=== PATIENT | male | born 1950 | race Caucasian/White ===

== ENCOUNTER 2018-03-05 08:51 | Emergency (ER) | payer MEDICARE, OTHER ==
[2018-03-05 09:13] LABS: #Basophils 0.1 thou/uL (0.0-0.2); #Eosinphils 0.2 thou/uL (0.0-0.7); #Lymphocytes 1.8 thou/uL (1.20-3.40); #Monocytes 0.5 thou/uL (0.11-0.59); #Neutrophils 4.9 thou/uL (1.40-6.50); %Basophils 1.5 % (0.0-1.0); %Eosinophils 2.3 % (0.0-10.0); %Lymphocytes 24.6 % (21.0-51.0); %Monocytes 6.1 % (0.0-10.0); %Neutrophils 65.6 % (42.0-75.0); Hemoglobin 14.7 g/dL (14.0-18.0); Mean Corpuscular HGB CONC 35.3 g/dL (32.0-36.0); Mean Corpuscular Hemoglobin 29.1 pg (27.0-31.0); Mean Corpuscular Volume 82.4 fL (78.0-98.0); Mean Platelet Volume 9.3 fL (7.4-10.4); Platelet Count 194 thou/uL (130-400); RBC Distribution Width 12.3 % (11.5-14.5); Red Blood Cell (RBC) Count 5.05 mill/uL (4.70-6.10); White Blood Cell (WBC) Count 7.5 thou/uL (4.8-10.8)
[2018-03-05] MEDS ORDERED: Pantoprazole 40 MG VIAL ONE (09:22)
--- NOTE | 2018-03-05 09:27 | RAD ---
UPRIGHT PORTABLE CHEST 1 VIEW: Date; 03/05/18 HISTORY: 67-year-old male with history of chest pain. FINDINGS: Monitor leads overlie the chest. Heart size is normal. The lungs are clear. No confluent pneumonia, o vert edema, or pleural effusion. IMPRESSION: No acute intrathoracic disease. Atherosclerosis of aorta. POS: [facility]
[2018-03-05 09:32] LABS: ALT (SGPT) 11 U/L (8-55); AST (SGOT) 13 U/L (5-34); Alkaline Phosphatase 75 U/L (40-150); Anion Gap 14 mmol/L (10-20); BUN (Urea Nitrogen) 14 mg/dL (8.4-25.7); Bilirubin, Total 0.6 mg/dL (0.2-1.2); Calc. Creatinine Clearance 0 mL/min (70-130); Calcium 9.6 mg/dL (7.8-10.44); Carbon Dioxide 28 mmol/L (23-31); Chloride 96 mmol/L (98-107); Estimated GFR-MDRD 57; Globulin 3.4 g/dL (2.4-3.5); Glucose 98 mg/dL (80-115); Potassium 3.8 mmol/L (3.5-5.1); Protein, Total 7.4 g/dL (5.8-8.1); Sodium 134 mmol/L (136-145)
== END 2018-03-05 11:24 | disposition short-term general hospital (02) ==
LOC: BURERS 08:51
DX: R07.2 Precordial pain (principal); I10 Essential (primary) hypertension; E78.5 Hyperlipidemia, unspecified; F17.210 Nicotine dependence, cigarettes, uncomplicated; Z79.899 Other long term (current) drug therapy; Z79.82 Long term (current) use of aspirin
CPT/HCPCS: 36415; 71045; 80053; 83880; 84484; 85025; 85379; 93005; 96374; C9113

== ENCOUNTER 2018-07-12 09:26 | Emergency (ER) | payer BC, MEDICARE ==
[2018-07-12 10:15] LABS: Eosinophils 4 % (0-10); Hemoglobin 13.9 g/dL (14.0-18.0); Lymphocytes 23 % (21-51); MDiff Complete? YES; Mean Corpuscular Hemoglobin 29.7 pg (27.0-31.0); Mean Corpuscular Volume 90.1 fL (78.0-98.0); Mean Platelet Volume 8.8 fL (7.4-10.4); Monocytes 4 % (0-10); Neutrophil 69 % (42-75); Platelet Count 144 thou/uL (130-400); RBC Distribution Width 13.3 % (11.5-14.5); Red Blood Cell (RBC) Count 4.66 mill/uL (4.70-6.10); White Blood Cell (WBC) Count 5.4 thou/uL (4.8-10.8)
[2018-07-12 10:33] LABS: ALT (SGPT) 15 U/L (8-55); AST (SGOT) 20 U/L (5-34); Albumin 3.9 g/dL (3.4-4.8); Alkaline Phosphatase 69 U/L (40-150); Anion Gap 14 mmol/L (10-20); BUN (Urea Nitrogen) 16 mg/dL (8.4-25.7); Bilirubin, Total 0.5 mg/dL (0.2-1.2); Calc. Creatinine Clearance 0 mL/min (70-130); Calcium 9.1 mg/dL (7.8-10.44); Carbon Dioxide 25 mmol/L (23-31); Chloride 102 mmol/L (98-107); Estimated GFR-MDRD 61; Glucose 94 mg/dL (80-115); Potassium 3.5 mmol/L (3.5-5.1); Protein, Total 6.9 g/dL (5.8-8.1); Sodium 137 mmol/L (136-145)
== END 2018-07-12 10:59 | disposition home or self-care (01) ==
LOC: BURERS 09:26
DX: K62.5 Hemorrhage of anus and rectum (principal); F17.210 Nicotine dependence, cigarettes, uncomplicated; E78.5 Hyperlipidemia, unspecified; I10 Essential (primary) hypertension; Z79.82 Long term (current) use of aspirin; Z79.899 Other long term (current) drug therapy
CPT/HCPCS: 80053; 82274; 85025; 99283

== ENCOUNTER 2019-03-10 17:42 | Emergency (ER) | payer BC, MEDICARE ==
[~2019-03-10 17:42] MED LIST: Iopamidol 370 76% 100 ML VIAL ONE
[2019-03-10 19:10] LABS: #Basophils 0.1 thou/uL (0.0-0.2); #Eosinphils 0.2 thou/uL (0.0-0.7); #Lymphocytes 1.3 thou/uL (1.20-3.40); #Monocytes 0.3 thou/uL (0.11-0.59); #Neutrophils 4.8 thou/uL (1.40-6.50); %Basophils 0.8 % (0.0-1.0); %Eosinophils 3.2 % (0.0-10.0); %Lymphocytes 19.2 % (21.0-51.0); %Neutrophils 71.8 % (42.0-75.0); Hemoglobin 11.8 g/dL (14.0-18.0); Mean Corpuscular HGB CONC 31.7 g/dL (32.0-36.0); Mean Corpuscular Hemoglobin 29.2 pg (27.0-31.0); Mean Corpuscular Volume 92.2 fL (78.0-98.0); Mean Platelet Volume 10.1 fL (7.4-10.4); Platelet Count 162 thou/uL (130-400); RBC Distribution Width 12.4 % (11.5-14.5); Red Blood Cell (RBC) Count 4.05 mill/uL (4.70-6.10); White Blood Cell (WBC) Count 6.7 thou/uL (4.8-10.8)
[2019-03-10 19:14] LABS: INR-International Normal Ratio 1.3; PTT 44.6 SEC (22.9-36.1); Prothrombin Time 16.4 SEC (12.0-14.7)
[2019-03-10 19:23] LABS: ALT (SGPT) 10 U/L (8-55); AST (SGOT) 14 U/L (5-34); Alkaline Phosphatase 64 U/L (40-110); Anion Gap 16 mmol/L (10-20); BUN (Urea Nitrogen) 20 mg/dL (8.4-25.7); Bilirubin, Total 0.3 mg/dL (0.2-1.2); Calc. Creatinine Clearance 0 mL/min (70-130); Carbon Dioxide 26 mmol/L (23-31); Chloride 100 mmol/L (98-107); Estimated GFR-MDRD 40; Globulin 3.1 g/dL (2.4-3.5); Glucose 102 mg/dL (80-115); Potassium 3.6 mmol/L (3.5-5.1); Protein, Total 7.1 g/dL (5.8-8.1); Sodium 138 mmol/L (136-145)
--- NOTE | 2019-03-10 19:59 | CT ---
EXAM: CT abdomen and pelvis with IV contrast PROVIDED CLINICAL HISTORY: None COMPARISON: None FINDINGS: The visualized lung bases are free of significant opacity. The solid abdominal organs demonstrate an unremarkable CT appearance. There is no bowel dilatation, inflammatory fat stranding, free fluid or free air apparent. There is n o evidence for appendicitis. Mural thickening versus nondistention involving the sigmoid and distal descending colon. No regional lymph node enlargement apparent. Vascular calcification including coronary calcium is dem onstrated.. The osseous structures demonstrate no concerning lytic or blastic lesions. IMPRESSION: Mural thickening versus nondistention involving distal descending and sigmoid colon. Correlate with c oncerns for colitis.
== END 2019-03-10 20:50 | disposition home or self-care (01) ==
LOC: BURERS 17:42
DX: K52.9 Noninfective gastroenteritis and colitis, unspecified (principal); E78.5 Hyperlipidemia, unspecified; I10 Essential (primary) hypertension; F17.210 Nicotine dependence, cigarettes, uncomplicated; Z79.82 Long term (current) use of aspirin; Z79.899 Other long term (current) drug therapy
CPT/HCPCS: 74177; 80053; 82274; 85025; 85610; 85730; 94760; 96360; Q9967

== ENCOUNTER 2019-06-27 11:52 | Emergency (ER) | payer BC, MEDICARE | END 2019-06-27 12:20 | disposition home or self-care (01) | LOC: BURERS 11:52 | DX: L03.031 Cellulitis of right toe (principal); S90.424A Blister (nonthermal), right lesser toe(s), initial encounter; I73.9 Peripheral vascular disease, unspecified; I10 Essential (primary) hypertension; E78.5 Hyperlipidemia, unspecified; F17.210 Nicotine dependence, cigarettes, uncomplicated; Z79.899 Other long term (current) drug therapy; X58.XXXA Exposure to other specified factors, initial encounter | CPT/HCPCS: 99283 ==

== ENCOUNTER 2019-07-16 15:44 | Emergency (ER) | payer BC, MEDICARE ==
[2019-07-16] MEDS ORDERED: HYDROmorphone 0.5 MG/0.5 ML SYRINGE ONE (16:16)
[2019-07-16] MEDS ORDERED: Aspirin Chewable 81 MG TAB ONE ×2 (16:42→16:46)
[2019-07-16 17:31] LABS: #Basophils 0.1 thou/uL (0.0-0.2); #Eosinphils 0.4 thou/uL (0.0-0.7); #Lymphocytes 1.5 thou/uL (1.20-3.40); #Monocytes 0.7 thou/uL (0.11-0.59); #Neutrophils 5.5 thou/uL (1.40-6.50); %Basophils 0.8 % (0.0-1.0); %Eosinophils 4.6 % (0.0-10.0); %Neutrophils 67.5 % (42.0-75.0); Hemoglobin 12.6 g/dL (14.0-18.0); Mean Corpuscular HGB CONC 32.2 g/dL (32.0-36.0); Mean Corpuscular Hemoglobin 29.8 pg (27.0-31.0); Mean Corpuscular Volume 92.4 fL (78.0-98.0); Platelet Count 122 thou/uL (130-400); Red Blood Cell (RBC) Count 4.23 mill/uL (4.70-6.10); White Blood Cell (WBC) Count 8.1 thou/uL (4.8-10.8)
[2019-07-16 17:33] LABS: INR-International Normal Ratio 1.3; Prothrombin Time 16.6 sec (12.0-14.7)
[2019-07-16 17:40] LABS: ALT (SGPT) 7 U/L (8-55); AST (SGOT) 14 U/L (5-34); Albumin 3.8 g/dL (3.4-4.8); Alkaline Phosphatase 85 U/L (40-110); Anion Gap 15 mmol/L (10-20); BUN (Urea Nitrogen) 23 mg/dL (8.4-25.7); Bilirubin, Total 0.3 mg/dL (0.2-1.2); Calc. Creatinine Clearance 0 mL/min (70-130); Calcium 9.6 mg/dL (7.8-10.44); Carbon Dioxide 28 mmol/L (23-31); Chloride 98 mmol/L (98-107); Estimated GFR-MDRD 44; Globulin 3.3 g/dL (2.4-3.5); Glucose 110 mg/dL (80-115); Potassium 3.4 mmol/L (3.5-5.1); Protein, Total 7.1 g/dL (5.8-8.1); Sodium 138 mmol/L (136-145)
== END 2019-07-16 19:12 | disposition short-term general hospital (02) ==
LOC: BURERS 15:44
DX: I73.9 Peripheral vascular disease, unspecified (principal); I10 Essential (primary) hypertension; E78.5 Hyperlipidemia, unspecified; F17.210 Nicotine dependence, cigarettes, uncomplicated; Z79.899 Other long term (current) drug therapy; Z79.01 Long term (current) use of anticoagulants
CPT/HCPCS: 80053; 85025; 85610; 96374; J1170

== ENCOUNTER 2019-11-18 19:43 | Emergency (ER) | payer MEDICARE, BC ==
[2019-11-18 20:07] LABS: INR-International Normal Ratio 1.6; PTT 59.5 sec (22.9-36.1); Prothrombin Time 19.4 sec (12.0-14.7)
[2019-11-18 20:11] LABS: #Lymphocytes 1.2 thou/uL (1.20-3.40); #Monocytes 0.4 thou/uL (0.11-0.59); #Neutrophils 8.1 thou/uL (1.40-6.50); %Basophils 0.3 % (0.0-1.0); %Eosinophils 0.2 % (0.0-10.0); %Lymphocytes 12.7 % (21.0-51.0); %Monocytes 4.1 % (0.0-10.0); %Neutrophils 82.7 % (42.0-75.0); Anisocytosis SLIGHT = 6-15 cells (100X) (0-5/hpf); Hemoglobin 8.2 g/dL (14.0-18.0); MDiff Complete? YES; Mean Corpuscular HGB CONC 29.1 g/dL (32.0-36.0); Mean Corpuscular Hemoglobin 23.9 pg (27.0-31.0); Mean Corpuscular Volume 82.3 fL (78.0-98.0); Mean Platelet Volume 7.1 fL (7.4-10.4); Ovalocytes SLIGHT = 2-5 cells (100X) (0-1/hpf); Platelet Count 291 thou/uL (130-400); Poikilocytosis SLIGHT = 6-15 cells (100X) (0-5/hpf); RBC Distribution Width 17.8 % (11.5-14.5); Red Blood Cell (RBC) Count 3.43 mill/uL (4.70-6.10); White Blood Cell (WBC) Count 9.8 thou/uL (4.8-10.8)
[2019-11-18 20:13] LABS: ALT (SGPT) 25 U/L (8-55); AST (SGOT) 71 U/L (5-34); Albumin 2.6 g/dL (3.4-4.8); Alkaline Phosphatase 175 U/L (40-110); Anion Gap 16 mmol/L (10-20); BUN (Urea Nitrogen) 63 mg/dL (8.4-25.7); Bilirubin, Total 0.4 mg/dL (0.2-1.2); CK (CPK) 1911 U/L (30-200); Calc. Creatinine Clearance 0 mL/min (70-130); Calcium 8.8 mg/dL (7.8-10.44); Carbon Dioxide 22 mmol/L (23-31); Chloride 103 mmol/L (98-107); Estimated GFR-MDRD 58; Globulin 4.4 g/dL (2.4-3.5); Glucose 97 mg/dL (80-115); Potassium 4.4 mmol/L (3.5-5.1); Sodium 137 mmol/L (136-145)
--- NOTE | 2019-11-18 21:05 | CT ---
CT OF THE BRAIN WITHOUT CONTRAST: 11/18/19 The ventricles are normal in size for age and atrophy. No intracranial bleeding or extra-axial hemato ma was seen. There is no sign of mass, edema, or stroke. The skull appears intact. There is no air fl uid level in the sphenoid sinus. Some mild mucosal thickening is seen in the maxillary sinuses, right greater than left. IMPRESSION: No acute intracranial findings. PRELIMINARY REPORT CALLED TO DR CANCINO AT 2053. POS: HOME
--- NOTE | 2019-11-18 21:10 | CT ---
CT OF THE CHEST, ABDOMEN AND PELVIS WITH CONTRAST: 11/18/[address] of the chest, abdomen and pelvis was done after injection of IV contrast. The scans go from the lower neck through the pelvis. CT OF THE THORAX: There is no sign of mediastinal hematoma, mass or adenopathy. No pericardial effusion was seen. Coron destiny artery calcifications are present. There is no sign of parenchymal contusion, pleural effusion, o r pneumothorax. Some streaking in the lung bases posteriorly is due to either dependent atelectasis, scarring or both. The ribs and thoracic spine appeared intact, as did the sternum. No gross fractures were identified here. CT OF THE ABDOMEN AND PELVIS: The liver, spleen, pancreas, gallbladder, adrenal glands, kidneys and abdominal aorta showed no acute findings. There was no sign of laceration or hematoma of any major organ. The bowel shows no distent ion to suggest obstruction. No bowel wall thickening or inflammatory change was noted. No free air or free fluid was present in the abdomen. CT of the pelvis showed no pelvic hematoma, free fluid or mass. The bony pelvis appears intact, as do the hips and lumbar spine. Degenerative changes are present throughout the spine. IMPRESSION: No acute traumatic findings in the chest, abdomen or pelvis. Preliminary results discussed with Dr. Baltazar at 2053 on 11/18/19. POS: HOME
[2019-11-18] MEDS ORDERED: Piperacillin/Tazobactam 4.5 GM VIAL ONE (21:24)
[2019-11-18] MEDS ORDERED: Sodium Chloride 0.9% 100 ML ONE (21:24)
[2019-11-18 21:42] LABS: Bilirubin Negative (Negative); Blood, Urine Large (Negative); Clarity Cloudy (Clear); Glucose, Urine (Dipstick) Negative (Negative); Ketone, Urine Negative (Negative); Leukocyte Small (Negative); Nitrite Positive (Negative); Protein, Urine (Dipstick) 100 mg/dL (Neg-Trace); Specific Gravity, Urine 1.015 (1.005-1.030); Urobilinogen 0.2 mg/dL (Less than 2); pH, Urine Greater/Equal 9.0 (5.0-9.0)
--- NOTE | 2019-11-18 21:42 | RAD ---
LEFT FOOT THREE VIEWS: 11/18/19 No acute fracture was seen. There is irregularity of the first metatarsal head which appears longstan ding. All bony structures appeared intact. There were no gross dislocations. IMPRESSION: No acute bony findings. POS: HOME
[2019-11-18 21:43] LABS: Bacteria/HPF 4+ HPF (None Seen); Squamous Epithelial 0-3 HPF (0-3); WBC/HPF 21-50 HPF (0-3)
== END 2019-11-18 22:58 | disposition short-term general hospital (02) ==
LOC: BURERS 19:43
DX: D64.9 Anemia, unspecified (principal); I96 Gangrene, not elsewhere classified; M62.82 Rhabdomyolysis; I10 Essential (primary) hypertension; E78.5 Hyperlipidemia, unspecified; F17.210 Nicotine dependence, cigarettes, uncomplicated; Z79.01 Long term (current) use of anticoagulants; Z79.899 Other long term (current) drug therapy
CPT/HCPCS: 36415; 70450; 71260; 74177; 80053; 81003; 81015; 82550; 83605; 84484; 85025; 85610; 85730; 93005; 96365; 96367; J2543; J3370; J3490; Q9967

== ENCOUNTER 2019-11-27 14:43 | Inpatient (IN) | payer MEDICARE, BC ==
[2019-11-27] MEDS ORDERED: Acetaminophen 325 MG TAB PO PRN (17:20)
[2019-11-27] MEDS ORDERED: Furosemide 20 MG TAB PO PRN (17:32)
[2019-11-27] MEDS: HYDROcodone/Acetaminophen 5/325 mg Tablet PO SCH (17:53)
[2019-11-27 18:31] VITALS: BMI 22.8
[2019-11-27] MEDS: ALPRAZolam 0.5 MG TAB PO SCH (20:27)
[2019-11-27] MEDS: Atorvastatin Calcium 10 MG TAB PO SCH (20:27)
[2019-11-28] MEDS: HYDROcodone/Acetaminophen 5/325 mg Tablet PO SCH ×4 (00:06→18:37)
[2019-11-28] MEDS: Acetaminophen 325 MG TAB PO PRN ×4 (04:38→20:46)
[2019-11-28] MEDS: Aspirin Chewable 81 MG TAB PO SCH (08:01)
[2019-11-28] MEDS: Lisinopril 5 MG TAB PO SCH (08:02)
[2019-11-28] MEDS: ALPRAZolam 0.5 MG TAB PO SCH (20:47)
[2019-11-28] MEDS: Atorvastatin Calcium 10 MG TAB PO SCH (20:47)
[2019-11-29] MEDS: HYDROcodone/Acetaminophen 5/325 mg Tablet PO SCH ×5 (00:04→23:43)
[2019-11-29] MEDS: Acetaminophen 325 MG TAB PO PRN ×2 (03:03→21:27)
[2019-11-29] MEDS: Aspirin Chewable 81 MG TAB PO SCH (08:31)
[2019-11-29] MEDS: Lisinopril 5 MG TAB PO SCH (08:31)
[2019-11-29] MEDS: Atorvastatin Calcium 10 MG TAB PO SCH (21:24)
[2019-11-29] MEDS: ALPRAZolam 0.5 MG TAB PO SCH (21:24)
[2019-11-30] MEDS: HYDROcodone/Acetaminophen 5/325 mg Tablet PO SCH ×3 (06:02→17:51)
[2019-11-30] MEDS: Lisinopril 5 MG TAB PO SCH (08:23)
[2019-11-30] MEDS: Aspirin Chewable 81 MG TAB PO SCH (08:24)
[2019-11-30] MEDS: Nicotine 7 MG PATCH TD SCH (14:55)
[2019-11-30] MEDS: ALPRAZolam 0.5 MG TAB PO SCH (20:01)
[2019-11-30] MEDS: Atorvastatin Calcium 10 MG TAB PO SCH (20:02)
[2019-11-30] MEDS: Acetaminophen 325 MG TAB PO PRN (20:02)
--- NOTE | 2019-11-30 23:24 | HP ---
Swing Bed Admission Note CHIEF COMPLAINT: Admission for half-way, physical therapy, occupational therapy. HISTORY OF PRESENT ILLNESS: The patient is a 69-year-old white male with past medical history of hyperlipidemia, hypertension, peripheral artery disease, and pulmonary embolism approximately two years ago, who was evaluated initially in the [place] and transferred to [facility] with left foot gangrene. The patient apparently fell from his wheelchair and was confused. He was initially evaluated and treated for possible infection. He was found to have dry gangrene and also had anemia with hospital admission, the hemoglobin was 7.5. He underwent EGD as well as colonoscopy which showed two bland gastric ulcers, one in the stomach, one in the duodenum. He had a colonoscopy with five diminutive polyps, pending final pathology. The patient will need a repeat colonoscopy in five years. He avoid NSAIDs and was placed on aspirin 81 mg a day for his peripheral vascular disease. The patient was evaluated by Dr. Nathan Son, who ordered echocardiogram showing ejection fraction of 40% to 45%, and patient underwent a left iliac to femoral artery bypass with 8 mm Hemashield graft. He was also evaluated by Dr. Arslan Dee for gangrene on his left foot involving the distal toes. It was determined due to the fact that it was dry gangrene and had no sign of active infection, that the dry gangrene to the left foot to be treated conservatively with expectation that the toes would eventually fall off. The patient was found to be debilitated and weak and having difficulty with transfers, and was deemed appropriate for patient be transferred to [facility] for skilled therapy, physical therapy and occupational therapy. PAST MEDICAL HISTORY: 1. Peripheral vascular disease status post right AKA and left fem pop, but left iliac to femoral bypass. 2. Left foot gangrene to be treated conservatively. 3. History of chronic anemia, suspected due to chronic GI blood loss. 4. Gastritis. 5. Anxiety. 6. History of rhabdomyolysis, resolved. 7. History of hypomagnesemia, resolved. 8. Hypokalemia, resolved. 9. Hypertension. 10. Coronary artery disease. 11. Hyperlipidemia. 12. Chronic renal disease stage 3. 13. History of pulmonary embolism in 2018. ADMISSION MEDICATIONS: 1. Aspirin 81 mg daily. 2. Xanax 1 mg at bedtime. 3. [place] 5/325 one to two q.4 hours p.r.n. pain. 4. Lasix 20 mg daily. 5. Protonix 40 mg p.o. b.i.d. 6. Tylenol 650 p.o. q.4 hours p.r.n. pain. 7. Lisinopril 5 mg daily. ALLERGIES: THE PATIENT HAS NO KNOWN DRUG ALLERGIES. SOCIAL HISTORY: The patient lives in the [facility]. He has grown siblings, who live in the area but he lives alone. The patient has a manual and motorized wheelchair, which he uses at baseline for ambulation. The patient denies any significant alcohol use. He does report smoking 1 to 2 packs daily for chronic multiple years. He does report independence in his activities of daily living. The patient denies any depression. REVIEW OF SYSTEMS: The patient reports no significant feeling to his left lower extremity. He does report some pain at the site of his recent vascular bypass incision site, which is controlled by medications. The patient reports appetite is good without nausea, vomiting, or diarrhea. The patient denies any URI like symptoms. No known weight loss or weight gain. The patient denies rashes. No chest pain or shortness of breath. No fevers, chills, or night sweats at the time of his admission. The patient denies any psychiatric problems. PHYSICAL EXAMINATION: GENERAL: White male, disheveled, alert and oriented x3. No apparent distress. VITAL SIGNS: Blood pressure 162/88, respiratory rate was 16, pulse was 82. HEENT: Oropharynx shows slight poor dentition. No lesions were noted. NECK: Supple. No masses palpated. CHEST: Clear to auscultation bilaterally. HEART: Regular rate and rhythm without murmurs, rubs, or gallops. ABDOMEN: Soft, nontender, nondistended. No masses were palpated. There was healing wound scar at the left lower groin area and left medial thigh without significant discharge or surrounding erythema. There was some mild erythema to the posterior sacrum area without obvious skin breakdown. There are several dry ulcers noted on the left lower extremity on the lateral lower extremity and the dorsal foot. There was black dark noted to the left 3rd, 4th, and 5th toes without significant surrounding erythema and again no significant sensation. ASSESSMENT AND PLAN: 1. Status post fall with rhabdomyolysis, resolved. 2. Peripheral vascular disease with dry gangrene, left lower extremity. The patient is status post iliac to fem bypass. He was placed on aspirin as only anti-platelet therapy due to his significant anemia. The patient will follow up with Dr. Nathan Son, his CV surgeon, within two weeks. He will follow up with Dr. Arslan Dee in approximately two weeks for his dry gangrene, which will be treated conservatively. 3. Anemia secondary to gastrointestinal blood loss, chronic. The patient will follow up with Gastroenterology in 2 to 4 weeks. He will likely need a followup colonoscopy in five years. 4. Hyperlipidemia. The patient will be followed on lisinopril and Lasix. 5. Gastritis. The patient is on Protonix 40 mg p.o. b.i.d. and to follow up with Gastroenterology. 6. History of pulmonary embolism in the past. The patient is at his baseline status, thus far is nonambulatory status. He had a pulmonary embolism greater than 18 months ago. The patient was unable to fully communicate if he was on anticoagulants for 3 to 6 months, but recent CT scan during his hospitalization showed no signs of pulmonary embolism that was noted two years ago, as well as parenchymal changes to the right lung field. Due to the patient's history of poor compliance, the fact that he is at his baseline status of being nonambulatory, it is felt as the safest for patient not to be treated with anticoagulants. DISPOSITION: Plan is for patient to be discharged to home once he is improved, physical therapy and occupational therapy for his debilitation. The patient will be followed by Uma Lindquist, Nurse Practitioner, as well as myself. Job ID: [id number]
[2019-12-01] MEDS: HYDROcodone/Acetaminophen 5/325 mg Tablet PO SCH ×5 (00:12→23:25)
[2019-12-01 05:56] LABS: #Basophils 0.1 thou/uL (0.0-0.2); #Eosinphils 0.2 thou/uL (0.0-0.7); #Lymphocytes 1.5 thou/uL (1.20-3.40); #Monocytes 0.6 thou/uL (0.11-0.59); #Neutrophils 4.3 thou/uL (1.40-6.50); %Basophils 0.8 % (0.0-1.0); %Eosinophils 2.7 % (0.0-10.0); %Lymphocytes 22.3 % (21.0-51.0); %Monocytes 8.5 % (0.0-10.0); %Neutrophils 65.7 % (42.0-75.0); Anisocytosis SLIGHT = 6-15 cells (100X) (0-5/hpf); Hemoglobin 7.2 g/dL (14.0-18.0); Hypochromia SLIGHT = 6-15 cells (100X) (0-5/hpf); MDiff Complete? YES; Mean Corpuscular HGB CONC 29.3 g/dL (32.0-36.0); Mean Corpuscular Hemoglobin 25.1 pg (27.0-31.0); Mean Corpuscular Volume 85.9 fL (78.0-98.0); Mean Platelet Volume 7.2 fL (7.4-10.4); Platelet Count 165 thou/uL (130-400); Platelet Morphology Comment Appears Adequate; Red Blood Cell (RBC) Count 2.87 mill/uL (4.70-6.10); White Blood Cell (WBC) Count 6.5 thou/uL (4.8-10.8)
[2019-12-01 05:59] LABS: Anion Gap 14 mmol/L (10-20); BUN (Urea Nitrogen) 25 mg/dL (8.4-25.7); Calc. Creatinine Clearance 78 mL/min (70-130); Calcium 8.2 mg/dL (7.8-10.44); Carbon Dioxide 27 mmol/L (23-31); Chloride 103 mmol/L (98-107); Estimated GFR-MDRD 82; Glucose 89 mg/dL (80-115); Potassium 4.2 mmol/L (3.5-5.1); Sodium 140 mmol/L (136-145)
[2019-12-01] MEDS: Lisinopril 5 MG TAB PO SCH (08:26)
[2019-12-01] MEDS: Aspirin Chewable 81 MG TAB PO SCH (08:26)
[2019-12-01] MEDS: Nicotine 7 MG PATCH TD SCH (15:32)
[2019-12-01] MEDS: Atorvastatin Calcium 10 MG TAB PO SCH (20:50)
[2019-12-01] MEDS: ALPRAZolam 0.5 MG TAB PO SCH (20:50)
[2019-12-02] MEDS: Acetaminophen 325 MG TAB PO PRN ×3 (03:51→15:37)
[2019-12-02] MEDS: HYDROcodone/Acetaminophen 5/325 mg Tablet PO SCH ×3 (05:12→18:42)
[2019-12-02] MEDS: Lisinopril 5 MG TAB PO SCH (09:14)
[2019-12-02] MEDS: Aspirin Chewable 81 MG TAB PO SCH (09:15)
[2019-12-02 11:15] LABS: Reticulocyte Count 2.9 % (0.5-1.5)
[2019-12-02 11:19] LABS: Iron Binding Capacity, Total 190 mcg/dL (261-462)
[2019-12-02 11:20] LABS: Iron 27 ug/dL (65-175)
[2019-12-02] MEDS: Nicotine 7 MG PATCH TD SCH (15:26)
[2019-12-02] MEDS: Ferrous Sulfate 325 MG TAB PO SCH (15:38)
[2019-12-02] MEDS: ALPRAZolam 0.5 MG TAB PO SCH (20:06)
[2019-12-02] MEDS: Bisacodyl 5 MG TAB PO PRN (20:06)
[2019-12-02] MEDS: Atorvastatin Calcium 10 MG TAB PO SCH (20:07)
[2019-12-02] MEDS: HYDROcodone/Acetaminophen 10/325 mg Tablet PO PRN (23:38)
[2019-12-03] MEDS: HYDROcodone/Acetaminophen 10/325 mg Tablet PO PRN ×4 (03:05→18:29)
[2019-12-03] MEDS: Lisinopril 5 MG TAB PO SCH (08:47)
[2019-12-03] MEDS: Aspirin Chewable 81 MG TAB PO SCH (08:48)
[2019-12-03] MEDS: Ferrous Sulfate 325 MG TAB PO SCH ×2 (08:48→18:25)
[2019-12-03] MEDS: Nicotine 7 MG PATCH TD SCH (14:24)
[2019-12-03] MEDS: Cyclobenzaprine 10 MG TAB PO PRN (18:25)
[2019-12-03] MEDS: ALPRAZolam 0.5 MG TAB PO SCH (20:47)
[2019-12-03] MEDS: Atorvastatin Calcium 10 MG TAB PO SCH (20:47)
[2019-12-03] MEDS: Bisacodyl 5 MG TAB PO PRN (20:47)
[2019-12-03] MEDS: Acetaminophen 325 MG TAB PO PRN (20:51)
[2019-12-04] MEDS: HYDROcodone/Acetaminophen 10/325 mg Tablet PO PRN ×4 (00:06→22:27)
[2019-12-04] MEDS: Ferrous Sulfate 325 MG TAB PO SCH ×2 (08:24→17:24)
[2019-12-04] MEDS: Lisinopril 5 MG TAB PO SCH (08:25)
[2019-12-04] MEDS: Aspirin Chewable 81 MG TAB PO SCH (08:25)
[2019-12-04] MEDS: Cyclobenzaprine 10 MG TAB PO PRN ×2 (08:25→19:14)
[2019-12-04] MEDS: Bisacodyl 5 MG TAB PO PRN (08:28)
[2019-12-04] MEDS: Nicotine 7 MG PATCH TD SCH (13:45)
[2019-12-04] MEDS ORDERED: Bisacodyl 10 MG SUPP PR PRN (17:57)
[2019-12-04] MEDS ORDERED: Milk Of Magnesia 30 ML UDCUP PO PRN (17:57)
[2019-12-04] MEDS: ALPRAZolam 0.5 MG TAB PO SCH (20:58)
[2019-12-04] MEDS: Atorvastatin Calcium 10 MG TAB PO SCH (20:59)
[2019-12-04] MEDS: Acetaminophen 325 MG TAB PO PRN (20:59)
[2019-12-05] MEDS: Polyethylene Glycol 3350 17 GM Packet PO SCH ×2 (08:55→09:25)
[2019-12-05] MEDS: Bisacodyl 5 MG TAB PO PRN (08:55)
[2019-12-05] MEDS: Lisinopril 5 MG TAB PO SCH (08:55)
[2019-12-05] MEDS: HYDROcodone/Acetaminophen 10/325 mg Tablet PO PRN ×2 (08:56→17:20)
[2019-12-05] MEDS: Aspirin Chewable 81 MG TAB PO SCH (08:57)
[2019-12-05] MEDS: Ferrous Sulfate 325 MG TAB PO SCH ×2 (08:57→17:17)
[2019-12-05] MEDS: Cyclobenzaprine 10 MG TAB PO PRN ×2 (11:15→19:23)
[2019-12-05] MEDS: Nicotine 7 MG PATCH TD SCH (13:56)
[2019-12-05] MEDS: ALPRAZolam 0.5 MG TAB PO SCH (20:44)
[2019-12-05] MEDS: Atorvastatin Calcium 10 MG TAB PO SCH (20:44)
[2019-12-06] MEDS: Aspirin Chewable 81 MG TAB PO SCH (08:33)
[2019-12-06] MEDS: Lisinopril 5 MG TAB PO SCH (08:33)
[2019-12-06] MEDS: Ferrous Sulfate 325 MG TAB PO SCH ×2 (08:33→17:22)
[2019-12-06] MEDS: Polyethylene Glycol 3350 17 GM Packet PO SCH (08:34)
[2019-12-06] MEDS: HYDROcodone/Acetaminophen 10/325 mg Tablet PO PRN ×2 (08:36→20:47)
[2019-12-06] MEDS: Nicotine 7 MG PATCH TD SCH (14:15)
[2019-12-06] MEDS: Cyclobenzaprine 10 MG TAB PO PRN (18:43)
[2019-12-06] MEDS: ALPRAZolam 0.5 MG TAB PO SCH (20:43)
[2019-12-06] MEDS: Atorvastatin Calcium 10 MG TAB PO SCH (20:43)
[2019-12-06] MEDS: Bisacodyl 5 MG TAB PO PRN (20:43)
[2019-12-07] MEDS: Cyclobenzaprine 10 MG TAB PO PRN (07:56)
[2019-12-07] MEDS: Lisinopril 5 MG TAB PO SCH (07:56)
[2019-12-07] MEDS: Aspirin Chewable 81 MG TAB PO SCH (07:57)
[2019-12-07] MEDS: Polyethylene Glycol 3350 17 GM Packet PO SCH (10:24)
[2019-12-07] MEDS: Ferrous Sulfate 325 MG TAB PO SCH ×2 (10:24→15:22)
[2019-12-07] MEDS: Acetaminophen 325 MG TAB PO PRN (12:02)
[2019-12-07] MEDS: Nicotine 7 MG PATCH TD SCH (15:22)
[2019-12-07] MEDS: ALPRAZolam 0.5 MG TAB PO SCH (21:06)
[2019-12-07] MEDS: Atorvastatin Calcium 10 MG TAB PO SCH (21:06)
[2019-12-07] MEDS: HYDROcodone/Acetaminophen 10/325 mg Tablet PO PRN (21:08)
[2019-12-08] MEDS: Lisinopril 5 MG TAB PO SCH (08:48)
[2019-12-08] MEDS: Ferrous Sulfate 325 MG TAB PO SCH ×2 (08:48→17:21)
[2019-12-08] MEDS: Aspirin Chewable 81 MG TAB PO SCH (08:48)
[2019-12-08] MEDS: Polyethylene Glycol 3350 17 GM Packet PO SCH (08:49)
[2019-12-08] MEDS: HYDROcodone/Acetaminophen 10/325 mg Tablet PO PRN ×3 (08:51→20:47)
[2019-12-08] MEDS: Nicotine 7 MG PATCH TD SCH (14:25)
[2019-12-08] MEDS: Bisacodyl 5 MG TAB PO PRN (20:43)
[2019-12-08] MEDS: ALPRAZolam 0.5 MG TAB PO SCH (20:43)
[2019-12-08] MEDS: Atorvastatin Calcium 10 MG TAB PO SCH (20:43)
[2019-12-08] MEDS: Acetaminophen 325 MG TAB PO PRN (23:43)
[2019-12-09] MEDS: HYDROcodone/Acetaminophen 10/325 mg Tablet PO PRN ×4 (04:52→21:25)
[2019-12-09] MEDS: Aspirin Chewable 81 MG TAB PO SCH (08:38)
[2019-12-09] MEDS: Ferrous Sulfate 325 MG TAB PO SCH ×2 (08:39→16:48)
[2019-12-09] MEDS: Lisinopril 5 MG TAB PO SCH (08:39)
[2019-12-09] MEDS: Polyethylene Glycol 3350 17 GM Packet PO SCH (08:40)
[2019-12-09] MEDS: Nicotine 7 MG PATCH TD SCH (14:29)
[2019-12-09] MEDS: ALPRAZolam 0.5 MG TAB PO SCH (21:25)
[2019-12-09] MEDS: Atorvastatin Calcium 10 MG TAB PO SCH (21:25)
[2019-12-09] MEDS: Bisacodyl 5 MG TAB PO PRN (21:31)
[2019-12-10] MEDS: HYDROcodone/Acetaminophen 10/325 mg Tablet PO PRN ×4 (03:45→20:06)
[2019-12-10] MEDS: Aspirin Chewable 81 MG TAB PO SCH (09:13)
[2019-12-10] MEDS: Lisinopril 5 MG TAB PO SCH (09:13)
[2019-12-10] MEDS: Ferrous Sulfate 325 MG TAB PO SCH ×2 (09:13→15:16)
[2019-12-10] MEDS: Polyethylene Glycol 3350 17 GM Packet PO SCH (09:14)
[2019-12-10] MEDS: Nicotine 7 MG PATCH TD SCH (15:16)
[2019-12-10] MEDS: ALPRAZolam 0.5 MG TAB PO SCH (20:02)
[2019-12-10] MEDS: Atorvastatin Calcium 10 MG TAB PO SCH (20:02)
[2019-12-10] MEDS: Acetaminophen 325 MG TAB PO PRN (22:38)
[2019-12-11] MEDS: HYDROcodone/Acetaminophen 10/325 mg Tablet PO PRN ×3 (03:27→20:30)
[2019-12-11] MEDS: Lisinopril 5 MG TAB PO SCH (08:30)
[2019-12-11] MEDS: Ferrous Sulfate 325 MG TAB PO SCH ×2 (08:30→16:31)
[2019-12-11] MEDS: Aspirin Chewable 81 MG TAB PO SCH (08:31)
[2019-12-11] MEDS: Polyethylene Glycol 3350 17 GM Packet PO SCH (08:36)
[2019-12-11] MEDS: Nicotine 7 MG PATCH TD SCH (14:21)
[2019-12-11] MEDS: Bisacodyl 5 MG TAB PO PRN (20:29)
[2019-12-11] MEDS: Atorvastatin Calcium 10 MG TAB PO SCH (20:30)
[2019-12-11] MEDS: ALPRAZolam 0.5 MG TAB PO SCH (20:30)
[2019-12-12] MEDS: HYDROcodone/Acetaminophen 10/325 mg Tablet PO PRN ×2 (03:09→17:16)
[2019-12-12] MEDS: Acetaminophen 325 MG TAB PO PRN (03:09)
[2019-12-12] MEDS: Lisinopril 5 MG TAB PO SCH (08:42)
[2019-12-12] MEDS: Aspirin Chewable 81 MG TAB PO SCH (08:42)
[2019-12-12] MEDS: Ferrous Sulfate 325 MG TAB PO SCH ×2 (08:42→17:17)
[2019-12-12] MEDS: Polyethylene Glycol 3350 17 GM Packet PO SCH (09:28)
[2019-12-12] MEDS ORDERED: Fleet Enema 133 ML BOT PR SCH ×3 (11:00→12:00)
[2019-12-12] MEDS: Nicotine 7 MG PATCH TD SCH (14:15)
[2019-12-12] MEDS: Bisacodyl 5 MG TAB PO PRN (20:04)
[2019-12-12] MEDS: Atorvastatin Calcium 10 MG TAB PO SCH (20:04)
[2019-12-12] MEDS: ALPRAZolam 0.5 MG TAB PO SCH (20:04)
[2019-12-13] MEDS: Acetaminophen 325 MG TAB PO PRN (00:12)
[2019-12-13] MEDS: HYDROcodone/Acetaminophen 10/325 mg Tablet PO PRN ×4 (00:13→20:01)
[2019-12-13 06:00] LABS: #Basophils 0.1 thou/uL (0.0-0.2); #Eosinphils 0.2 thou/uL (0.0-0.7); #Lymphocytes 1.8 thou/uL (1.20-3.40); #Monocytes 0.4 thou/uL (0.11-0.59); #Neutrophils 3.5 thou/uL (1.40-6.50); %Basophils 1.4 % (0.0-1.0); %Eosinophils 3.3 % (0.0-10.0); %Lymphocytes 29.9 % (21.0-51.0); %Neutrophils 58.5 % (42.0-75.0); Hemoglobin 8.8 g/dL (14.0-18.0); Mean Corpuscular HGB CONC 29.6 g/dL (32.0-36.0); Mean Corpuscular Volume 84.5 fL (78.0-98.0); Mean Platelet Volume 6.6 fL (7.4-10.4); Platelet Count 229 thou/uL (130-400); Red Blood Cell (RBC) Count 3.51 mill/uL (4.70-6.10)
[2019-12-13 06:13] LABS: Anion Gap 15 mmol/L (10-20); BUN (Urea Nitrogen) 13 mg/dL (8.4-25.7); Calc. Creatinine Clearance 79 mL/min (70-130); Calcium 8.8 mg/dL (7.8-10.44); Carbon Dioxide 27 mmol/L (23-31); Chloride 102 mmol/L (98-107); Estimated GFR-MDRD 85; Glucose 88 mg/dL (80-115); Sodium 140 mmol/L (136-145)
[2019-12-13] MEDS: Polyethylene Glycol 3350 17 GM Packet PO SCH (08:50)
[2019-12-13] MEDS: Lisinopril 5 MG TAB PO SCH (08:51)
[2019-12-13] MEDS: Aspirin Chewable 81 MG TAB PO SCH (08:51)
[2019-12-13] MEDS: Ferrous Sulfate 325 MG TAB PO SCH ×2 (08:51→16:52)
[2019-12-13] MEDS: Nicotine 7 MG PATCH TD SCH (13:58)
[2019-12-13] MEDS: Atorvastatin Calcium 10 MG TAB PO SCH (20:01)
[2019-12-13] MEDS: ALPRAZolam 0.5 MG TAB PO SCH (21:00)
[2019-12-14] MEDS: HYDROcodone/Acetaminophen 10/325 mg Tablet PO PRN ×3 (02:03→16:07)
[2019-12-14] MEDS: Polyethylene Glycol 3350 17 GM Packet PO SCH (08:03)
[2019-12-14] MEDS: Lisinopril 5 MG TAB PO SCH (08:04)
[2019-12-14] MEDS: Aspirin Chewable 81 MG TAB PO SCH (08:04)
[2019-12-14] MEDS: Ferrous Sulfate 325 MG TAB PO SCH ×2 (08:05→16:35)
[2019-12-14] MEDS: Nicotine 7 MG PATCH TD SCH (13:54)
[2019-12-14] MEDS: Bisacodyl 5 MG TAB PO PRN (20:34)
[2019-12-14] MEDS: Atorvastatin Calcium 10 MG TAB PO SCH (20:35)
[2019-12-14] MEDS: ALPRAZolam 0.5 MG TAB PO SCH (20:35)
[2019-12-15] MEDS: HYDROcodone/Acetaminophen 10/325 mg Tablet PO PRN ×4 (00:11→20:48)
[2019-12-15] MEDS: Acetaminophen 325 MG TAB PO PRN ×4 (00:11→20:48)
[2019-12-15] MEDS: Ferrous Sulfate 325 MG TAB PO SCH ×2 (09:03→17:55)
[2019-12-15] MEDS: Polyethylene Glycol 3350 17 GM Packet PO SCH (09:04)
[2019-12-15] MEDS: Aspirin Chewable 81 MG TAB PO SCH (09:04)
[2019-12-15] MEDS: Lisinopril 5 MG TAB PO SCH (09:04)
[2019-12-15] MEDS: Nicotine 7 MG PATCH TD SCH (14:28)
[2019-12-15] MEDS ORDERED: ALPRAZolam 0.5 MG TAB PO PRN (17:13)
[2019-12-15] MEDS: Bisacodyl 5 MG TAB PO PRN (20:41)
[2019-12-15] MEDS: Atorvastatin Calcium 10 MG TAB PO SCH (20:42)
[2019-12-16] MEDS: Polyethylene Glycol 3350 17 GM Packet PO SCH (09:06)
[2019-12-16] MEDS: Lisinopril 5 MG TAB PO SCH (09:07)
[2019-12-16] MEDS: Ferrous Sulfate 325 MG TAB PO SCH ×2 (09:07→16:39)
[2019-12-16] MEDS: Aspirin Chewable 81 MG TAB PO SCH (09:08)
[2019-12-16] MEDS: Acetaminophen 325 MG TAB PO PRN (09:54)
[2019-12-16] MEDS: HYDROcodone/Acetaminophen 10/325 mg Tablet PO PRN ×2 (09:54→17:54)
[2019-12-16] MEDS: Nicotine 7 MG PATCH TD SCH (14:00)
[2019-12-16] MEDS: Atorvastatin Calcium 10 MG TAB PO SCH (20:00)
[2019-12-16] MEDS: Bisacodyl 5 MG TAB PO PRN (20:00)
[2019-12-17] MEDS: Lisinopril 5 MG TAB PO SCH (08:42)
[2019-12-17] MEDS: HYDROcodone/Acetaminophen 10/325 mg Tablet PO PRN ×3 (08:43→20:26)
[2019-12-17] MEDS: Aspirin Chewable 81 MG TAB PO SCH (08:43)
[2019-12-17] MEDS: Ferrous Sulfate 325 MG TAB PO SCH ×2 (08:45→17:52)
[2019-12-17] MEDS: Polyethylene Glycol 3350 17 GM Packet PO SCH (08:46)
[2019-12-17] MEDS: Acetaminophen 325 MG TAB PO PRN ×3 (08:50→19:19)
[2019-12-17] MEDS: Nicotine 7 MG PATCH TD SCH (14:16)
[2019-12-17] MEDS: Cyclobenzaprine 10 MG TAB PO PRN (20:34)
[2019-12-17] MEDS: Bisacodyl 5 MG TAB PO PRN (20:34)
[2019-12-17] MEDS: Atorvastatin Calcium 10 MG TAB PO SCH (20:35)
[2019-12-18] MEDS: Acetaminophen 325 MG TAB PO PRN ×3 (05:59→21:36)
[2019-12-18] MEDS: HYDROcodone/Acetaminophen 10/325 mg Tablet PO PRN ×3 (05:59→21:37)
[2019-12-18] MEDS: Aspirin Chewable 81 MG TAB PO SCH (09:15)
[2019-12-18] MEDS: Polyethylene Glycol 3350 17 GM Packet PO SCH (09:16)
[2019-12-18] MEDS: Ferrous Sulfate 325 MG TAB PO SCH ×2 (09:16→17:11)
[2019-12-18] MEDS: Lisinopril 5 MG TAB PO SCH (09:16)
[2019-12-18] MEDS: Nicotine 7 MG PATCH TD SCH (15:12)
[2019-12-18] MEDS: Atorvastatin Calcium 10 MG TAB PO SCH (21:12)
[2019-12-18] MEDS: Bisacodyl 5 MG TAB PO PRN (21:13)
[2019-12-18] MEDS: Cyclobenzaprine 10 MG TAB PO PRN (21:36)
[2019-12-19] MEDS: Acetaminophen 325 MG TAB PO PRN ×3 (05:11→20:30)
[2019-12-19] MEDS: HYDROcodone/Acetaminophen 10/325 mg Tablet PO PRN ×3 (05:11→20:31)
[2019-12-19] MEDS: Polyethylene Glycol 3350 17 GM Packet PO SCH (08:43)
[2019-12-19] MEDS: Aspirin Chewable 81 MG TAB PO SCH (08:43)
[2019-12-19] MEDS: Lisinopril 5 MG TAB PO SCH (08:43)
[2019-12-19] MEDS: Ferrous Sulfate 325 MG TAB PO SCH ×3 (08:44→16:59)
[2019-12-19] MEDS: Nicotine 7 MG PATCH TD SCH (14:19)
[2019-12-19] MEDS: Cyclobenzaprine 10 MG TAB PO PRN (20:30)
[2019-12-19] MEDS: Atorvastatin Calcium 10 MG TAB PO SCH (20:31)
[2019-12-19] MEDS: Bisacodyl 5 MG TAB PO PRN (20:31)
[2019-12-20] MEDS: HYDROcodone/Acetaminophen 10/325 mg Tablet PO PRN ×3 (03:39→21:53)
[2019-12-20] MEDS: Acetaminophen 325 MG TAB PO PRN ×3 (03:39→21:53)
[2019-12-20] MEDS: Polyethylene Glycol 3350 17 GM Packet PO SCH (09:32)
[2019-12-20] MEDS: Aspirin Chewable 81 MG TAB PO SCH (09:33)
[2019-12-20] MEDS: Lisinopril 5 MG TAB PO SCH (09:33)
[2019-12-20] MEDS: Ferrous Sulfate 325 MG TAB PO SCH ×2 (09:33→17:01)
[2019-12-20] MEDS: Nicotine 7 MG PATCH TD SCH (13:21)
[2019-12-20] MEDS: Atorvastatin Calcium 10 MG TAB PO SCH (21:53)
[2019-12-20] MEDS: Bisacodyl 5 MG TAB PO PRN (21:53)
[2019-12-20] MEDS: Cyclobenzaprine 10 MG TAB PO PRN (21:53)
[2019-12-21] MEDS: HYDROcodone/Acetaminophen 10/325 mg Tablet PO PRN ×3 (05:10→21:13)
[2019-12-21] MEDS: Acetaminophen 325 MG TAB PO PRN ×3 (05:10→21:15)
[2019-12-21] MEDS: Aspirin Chewable 81 MG TAB PO SCH (08:44)
[2019-12-21] MEDS: Lisinopril 5 MG TAB PO SCH (08:44)
[2019-12-21] MEDS: Ferrous Sulfate 325 MG TAB PO SCH ×2 (08:44→16:28)
[2019-12-21] MEDS: Polyethylene Glycol 3350 17 GM Packet PO SCH (08:44)
[2019-12-21] MEDS: Nicotine 7 MG PATCH TD SCH (13:50)
[2019-12-21] MEDS: Cyclobenzaprine 10 MG TAB PO PRN (21:15)
[2019-12-21] MEDS: Atorvastatin Calcium 10 MG TAB PO SCH (22:22)
[2019-12-21] MEDS: Bisacodyl 5 MG TAB PO PRN (22:24)
[2019-12-22] MEDS: HYDROcodone/Acetaminophen 10/325 mg Tablet PO PRN ×3 (05:05→19:33)
[2019-12-22] MEDS: Polyethylene Glycol 3350 17 GM Packet PO SCH (08:15)
[2019-12-22] MEDS: Lisinopril 5 MG TAB PO SCH (08:15)
[2019-12-22] MEDS: Aspirin Chewable 81 MG TAB PO SCH (08:16)
[2019-12-22] MEDS: Ferrous Sulfate 325 MG TAB PO SCH ×2 (08:16→17:23)
[2019-12-22] MEDS: Acetaminophen 325 MG TAB PO PRN ×2 (12:47→19:33)
[2019-12-22] MEDS: Nicotine 7 MG PATCH TD SCH (14:15)
[2019-12-22] MEDS: Cyclobenzaprine 10 MG TAB PO PRN (21:22)
[2019-12-22] MEDS: Atorvastatin Calcium 10 MG TAB PO SCH (21:22)
[2019-12-22] MEDS: Bisacodyl 5 MG TAB PO PRN (21:26)
[2019-12-23 05:32] LABS: Anion Gap 13 mmol/L (10-20); BUN (Urea Nitrogen) 19 mg/dL (8.4-25.7); Calc. Creatinine Clearance 75 mL/min (70-130); Calcium 8.6 mg/dL (7.8-10.44); Carbon Dioxide 26 mmol/L (23-31); Chloride 102 mmol/L (98-107); Estimated GFR-MDRD 79; Glucose 89 mg/dL (80-115); Potassium 4.1 mmol/L (3.5-5.1); Sodium 137 mmol/L (136-145)
[2019-12-23 05:35] LABS: Hemoglobin 9.4 g/dL (14.0-18.0); Platelet Count 214 thou/uL (130-400)
[2019-12-23] MEDS: HYDROcodone/Acetaminophen 10/325 mg Tablet PO PRN ×2 (08:33→15:57)
[2019-12-23] MEDS: Ferrous Sulfate 325 MG TAB PO SCH ×2 (08:33→15:57)
[2019-12-23] MEDS: Acetaminophen 325 MG TAB PO PRN ×3 (08:33→21:32)
[2019-12-23] MEDS: Polyethylene Glycol 3350 17 GM Packet PO SCH (08:33)
[2019-12-23] MEDS: Lisinopril 5 MG TAB PO SCH (08:34)
[2019-12-23] MEDS: Aspirin Chewable 81 MG TAB PO SCH (08:35)
[2019-12-23] MEDS: Nicotine 7 MG PATCH TD SCH (15:56)
[2019-12-23] MEDS: Bisacodyl 5 MG TAB PO PRN (21:32)
[2019-12-23] MEDS: Cyclobenzaprine 10 MG TAB PO PRN (21:33)
[2019-12-23] MEDS: Atorvastatin Calcium 10 MG TAB PO SCH (21:33)
[2019-12-24] MEDS: HYDROcodone/Acetaminophen 10/325 mg Tablet PO PRN ×2 (00:24→08:17)
[2019-12-24] MEDS: Polyethylene Glycol 3350 17 GM Packet PO SCH (08:17)
[2019-12-24] MEDS: Aspirin Chewable 81 MG TAB PO SCH (08:18)
[2019-12-24] MEDS: Lisinopril 5 MG TAB PO SCH (08:18)
[2019-12-24] MEDS: Ferrous Sulfate 325 MG TAB PO SCH ×2 (08:18→16:48)
[2019-12-24] MEDS: Acetaminophen 325 MG TAB PO PRN ×2 (08:21→15:15)
[2019-12-24] MEDS ORDERED: traMADol HCl 50 MG TAB PO PRN (11:29)
[2019-12-24] MEDS ORDERED: Acetaminophen 325 MG TAB PO PRN (11:31)
[2019-12-24] MEDS: Nicotine 7 MG PATCH TD SCH (14:13)
[2019-12-24] MEDS: HYDROcodone/Acetaminophen 5/325 mg Tablet PO PRN ×2 (15:15→21:36)
[2019-12-24] MEDS: Atorvastatin Calcium 10 MG TAB PO SCH (20:10)
[2019-12-25] MEDS: Ferrous Sulfate 325 MG TAB PO SCH ×2 (09:53→18:49)
[2019-12-25] MEDS: Aspirin Chewable 81 MG TAB PO SCH (09:53)
[2019-12-25] MEDS: Lisinopril 5 MG TAB PO SCH (09:53)
[2019-12-25] MEDS: HYDROcodone/Acetaminophen 5/325 mg Tablet PO PRN (09:54)
[2019-12-25] MEDS: Acetaminophen 325 MG TAB PO PRN ×2 (09:54→17:15)
[2019-12-25] MEDS: Polyethylene Glycol 3350 17 GM Packet PO SCH (10:08)
[2019-12-25] MEDS: Nicotine 7 MG PATCH TD SCH (14:33)
[2019-12-25] MEDS ORDERED: Acetaminophen/Codeine 30-300mg Tablet PO PRN (17:36)
[2019-12-25] MEDS: Acetaminophen/Codeine 30-300mg Tablet PO PRN (18:46)
[2019-12-25] MEDS: Atorvastatin Calcium 10 MG TAB PO SCH (20:58)
[2019-12-26 05:47] LABS: ALT (SGPT) 11 U/L (8-55); AST (SGOT) 13 U/L (5-34); Albumin 2.9 g/dL (3.4-4.8); Alkaline Phosphatase 104 U/L (40-110); Anion Gap 16 mmol/L (10-20); BUN (Urea Nitrogen) 15 mg/dL (8.4-25.7); Bilirubin, Total 0.3 mg/dL (0.2-1.2); Calc. Creatinine Clearance 79 mL/min (70-130); Calcium 8.5 mg/dL (7.8-10.44); Carbon Dioxide 22 mmol/L (23-31); Cardiac Risk 3.3 (Less than 4.5); Chloride 105 mmol/L (98-107); Cholesterol 89 mg/dl (< 200 Desired); Estimated GFR-MDRD 85; Globulin 3.8 g/dL (2.4-3.5); Glucose 93 mg/dL (80-115); HDL Cholesterol 27 mg/dL (>60 Neg Risk); LDL Cholesterol, Calculated 46 mg/dL; Potassium 3.8 mmol/L (3.5-5.1); Protein, Total 6.7 g/dL (5.8-8.1); Sodium 139 mmol/L (136-145); Triglycerides 81 mg/dL (Less than 150)
[2019-12-26 05:57] LABS: #Eosinphils 0.3 thou/uL (0.0-0.7); #Lymphocytes 1.8 thou/uL (1.20-3.40); #Monocytes 0.5 thou/uL (0.11-0.59); #Neutrophils 4.7 thou/uL (1.40-6.50); %Basophils 0.6 % (0.0-1.0); %Eosinophils 4.5 % (0.0-10.0); %Lymphocytes 24.6 % (21.0-51.0); %Monocytes 6.3 % (0.0-10.0); Anisocytosis SLIGHT = 6-15 cells (100X) (0-5/hpf); Hemoglobin 8.7 g/dL (14.0-18.0); Hypochromia SLIGHT = 6-15 cells (100X) (0-5/hpf); MDiff Complete? YES; Mean Corpuscular HGB CONC 27.7 g/dL (32.0-36.0); Mean Corpuscular Hemoglobin 23.2 pg (27.0-31.0); Mean Corpuscular Volume 83.8 fL (78.0-98.0); Mean Platelet Volume 6.6 fL (7.4-10.4); Platelet Count 137 thou/uL (130-400); Platelet Morphology Comment Appears Adequate; RBC Distribution Width 17.4 % (11.5-14.5); Red Blood Cell (RBC) Count 3.76 mill/uL (4.70-6.10); Small Platelets SLIGHT; White Blood Cell (WBC) Count 7.3 thou/uL (4.8-10.8)
[2019-12-26] MEDS: Aspirin Chewable 81 MG TAB PO SCH (09:03)
[2019-12-26] MEDS: Polyethylene Glycol 3350 17 GM Packet PO SCH (09:03)
[2019-12-26] MEDS: Lisinopril 5 MG TAB PO SCH (09:04)
[2019-12-26] MEDS: Ferrous Sulfate 325 MG TAB PO SCH ×2 (09:05→16:20)
[2019-12-26] MEDS: Acetaminophen/Codeine 30-300mg Tablet PO PRN ×2 (09:10→20:51)
[2019-12-26] MEDS: Nicotine 7 MG PATCH TD SCH (14:33)
[2019-12-26] MEDS: Atorvastatin Calcium 10 MG TAB PO SCH (20:51)
[2019-12-26] MEDS: Bisacodyl 5 MG TAB PO PRN (20:52)
[2019-12-27] MEDS: Cyclobenzaprine 10 MG TAB PO PRN ×2 (02:39→20:03)
[2019-12-27] MEDS: Acetaminophen/Codeine 30-300mg Tablet PO PRN (02:40)
[2019-12-27] MEDS: Ferrous Sulfate 325 MG TAB PO SCH ×2 (08:37→15:00)
[2019-12-27] MEDS: Lisinopril 5 MG TAB PO SCH (08:37)
[2019-12-27] MEDS: Aspirin Chewable 81 MG TAB PO SCH (08:37)
[2019-12-27] MEDS: Polyethylene Glycol 3350 17 GM Packet PO SCH (08:37)
[2019-12-27] MEDS: HYDROcodone/Acetaminophen 5/325 mg Tablet PO PRN ×2 (10:58→20:03)
[2019-12-27] MEDS: Nicotine 7 MG PATCH TD SCH (12:50)
[2019-12-27] MEDS: Atorvastatin Calcium 10 MG TAB PO SCH (20:01)
[2019-12-28] MEDS: Acetaminophen/Codeine 30-300mg Tablet PO PRN ×2 (03:25→21:10)
[2019-12-28] MEDS: Lisinopril 5 MG TAB PO SCH (09:07)
[2019-12-28] MEDS: Aspirin Chewable 81 MG TAB PO SCH (09:07)
[2019-12-28] MEDS: Polyethylene Glycol 3350 17 GM Packet PO SCH (09:08)
[2019-12-28] MEDS: Ferrous Sulfate 325 MG TAB PO SCH ×2 (09:08→17:05)
[2019-12-28] MEDS: HYDROcodone/Acetaminophen 5/325 mg Tablet PO PRN ×2 (09:11→12:57)
[2019-12-28] MEDS: Nicotine 7 MG PATCH TD SCH (15:26)
[2019-12-28] MEDS ORDERED: ALPRAZolam 0.5 MG TAB PO SCH (17:15)
[2019-12-28] MEDS: Atorvastatin Calcium 10 MG TAB PO SCH (21:09)
[2019-12-28] MEDS: Bisacodyl 5 MG TAB PO PRN (21:10)
[2019-12-28] MEDS: Cyclobenzaprine 10 MG TAB PO PRN (21:10)
[2019-12-29] MEDS: Acetaminophen/Codeine 30-300mg Tablet PO PRN ×2 (03:06→09:07)
[2019-12-29 06:58] VITALS: BP 118/57; TEMP 97.6
[2019-12-29] MEDS: Lisinopril 5 MG TAB PO SCH (09:08)
[2019-12-29] MEDS: Ferrous Sulfate 325 MG TAB PO SCH (09:09)
[2019-12-29] MEDS: Aspirin Chewable 81 MG TAB PO SCH (09:09)
[2019-12-29] MEDS: Polyethylene Glycol 3350 17 GM Packet PO SCH (11:09)
[2019-12-29] MEDS ORDERED: FLU VACC QS2020-21(65YR UP)/PF 240 MCG/0.7 ML SYRINGE IM ONE (13:00)
--- NOTE | 2019-12-30 09:16 | DIS ---
DATE OF ADMISSION: 11/27/2019 DATE OF DISCHARGE: 12/29/2019 DISCHARGE DIAGNOSES: 1. Dry gangrene, left 2nd, 3rd, 4th toes; and gangrenous ulcer, anterior left distal lower extremity. 2. Peripheral arterial disease, status post left iliac femoral bypass, right nffcr-zdr-arlt amputation. 3. Tobacco dependence. 4. Chronic anemia. He refuses his iron supplement. HOSPITAL COURSE: A 69-year-old male patient with a history of severe PAD, with dry gangrene to left lower extremity as above. He was admitted to the [facility] facility at [facility] for rehab and continued [facility] care post-op left iliac femoral bypass on 11/23/2019. He has a history of right AKA a year ago done in [place]. He has not smoked during the month long stay of his acute and SNF stay. However, he is very clear that he intends tocontinue smoking 4 to 5 cigarettes daily upon discharge. He also has chronic iron deficient anemia, and based on labs done earlier last month his iron was 27, TIBC 190, and percent saturation 14. While at [facility], he underwent an EGD and colonoscopy, which showed 2 bland gastric ulcers, 1 in the stomach, 1 in the duodenum, and it is recommended that he continue PPI. His admission hemoglobin was 7.5. His hemoglobin has ranged from 7.2 to 9.4 with most recent H and H done on 12/26/2019 was 8.7 and 31.5, platelets 137. He has a normal comprehensive metabolic panel. His creatinine was 0.89. His lipids are normal, LDL 46. DISPOSITION: Home on home health for physical therapy, wound care. DIET AND ACTIVITY: As tolerated. He is currently able to transfer independently. He can tolerate brief weightbearing to his left lower extremity, which enables him to stand and pivot. ALLERGIES: NO KNOWN DRUG ALLERGIES. CODE STATUS: Full code. MEDICATIONS: 1. Lisinopril 5 mg daily. 2. Quetiapine 25 mg p.o. at bedtime. 3. Dulcolax 10 mg p.o. daily p.r.n. 4. Polyethylene glycol 17 g p.o. daily. 5. Cyclobenzaprine 10 mg p.o. b.i.d. p.r.n. muscle spasm. 6. Lipitor 10 mg p.o. at bedtime. 7. Furosemide 20 mg p.o. daily. 8. Aspirin 81 mg p.o. daily. 9. Pantoprazole 40 mg daily. 10. Tylenol No.3 one to two q.4-6 p.r.n. pain. FOLLOWUP: He will follow up with PCP, Jaclyn Maya, in [address] Son and Dr. Dee as directed. Job ID: [id number] [facility]
== END 2019-12-29 11:15 | disposition home health service (06) | DRG 948 ==
LOC: BURMED 15:31
PROVIDERS: ADMIT Family Medicine; ATTEND Family Medicine
DX: R53.1 Weakness (principal); L97.929 Non-pressure chronic ulcer of unspecified part of left lower leg with unspecified severity; R53.81 Other malaise; E78.5 Hyperlipidemia, unspecified; I73.9 Peripheral vascular disease, unspecified; F41.9 Anxiety disorder, unspecified; N18.30 Chronic kidney disease, stage 3 unspecified; I25.10 Atherosclerotic heart disease of native coronary artery without angina pectoris; K29.70 Gastritis, unspecified, without bleeding; I12.9 Hypertensive chronic kidney disease with stage 1 through stage 4 chronic kidney disease, or unspecified chronic kidney disease; K59.00 Constipation, unspecified; D63.1 Anemia in chronic kidney disease; D50.0 Iron deficiency anemia secondary to blood loss (chronic); F17.210 Nicotine dependence, cigarettes, uncomplicated; K25.9 Gastric ulcer, unspecified as acute or chronic, without hemorrhage or perforation; K21.9 Gastro-esophageal reflux disease without esophagitis; G89.29 Other chronic pain; Z89.611 Acquired absence of right leg above knee; Z86.711 Personal history of pulmonary embolism
CPT/HCPCS: 36415; 80048; 80053; 80061; 83540; 83550; 83735; 85014; 85018; 85025; 85046; 85049

== ENCOUNTER 2020-02-02 17:21 | Emergency (ER) | payer BC, MEDICARE ==
[2020-02-02] MEDS ORDERED: Piperacillin/Tazobactam 4.5 GM VIAL ONE (18:54)
[2020-02-02] MEDS ORDERED: Morphine 10 MG/ML VIAL ONE (18:54)
[2020-02-02 19:08] LABS: #Eosinphils 0.3 thou/uL (0.0-0.7); #Lymphocytes 1.2 thou/uL (1.20-3.40); #Monocytes 0.6 thou/uL (0.11-0.59); #Neutrophils 6.8 thou/uL (1.40-6.50); %Basophils 0.5 % (0.0-1.0); %Eosinophils 3.1 % (0.0-10.0); %Lymphocytes 13.4 % (21.0-51.0); %Monocytes 6.8 % (0.0-10.0); %Neutrophils 76.3 % (42.0-75.0); Hemoglobin 9.1 g/dL (14.0-18.0); Mean Corpuscular HGB CONC 30.9 g/dL (32.0-36.0); Mean Corpuscular Hemoglobin 25.1 pg (27.0-31.0); Mean Corpuscular Volume 81.2 fL (78.0-98.0); Mean Platelet Volume 7.2 fL (7.4-10.4); Platelet Count 236 thou/uL (130-400); RBC Distribution Width 15.7 % (11.5-14.5); Red Blood Cell (RBC) Count 3.64 mill/uL (4.70-6.10); White Blood Cell (WBC) Count 8.9 thou/uL (4.8-10.8)
[2020-02-02 19:23] LABS: ALT (SGPT) 10 U/L (8-55); AST (SGOT) 9 U/L (5-34); Alkaline Phosphatase 95 U/L (40-110); Anion Gap 17 mmol/L (10-20); BUN (Urea Nitrogen) 28 mg/dL (8.4-25.7); Bilirubin, Total 0.2 mg/dL (0.2-1.2); Calc. Creatinine Clearance 0 mL/min (70-130); Calcium 8.5 mg/dL (7.8-10.44); Carbon Dioxide 26 mmol/L (23-31); Chloride 100 mmol/L (98-107); Estimated GFR-MDRD 48; Globulin 4.2 g/dL (2.4-3.5); Glucose 102 mg/dL (80-115); Potassium 3.7 mmol/L (3.5-5.1); Protein, Total 7.2 g/dL (5.8-8.1); Sodium 139 mmol/L (136-145)
== END 2020-02-02 21:35 | disposition short-term general hospital (02) ==
LOC: BURERS 17:21
DX: I96 Gangrene, not elsewhere classified (principal); K21.9 Gastro-esophageal reflux disease without esophagitis; E78.5 Hyperlipidemia, unspecified; I10 Essential (primary) hypertension; F17.210 Nicotine dependence, cigarettes, uncomplicated; Z79.01 Long term (current) use of anticoagulants; Z79.899 Other long term (current) drug therapy
CPT/HCPCS: 36415; 80053; 85025; 96365; 96375; J2270; J2543

== ENCOUNTER 2020-02-17 13:54 | Emergency (ER) | payer MEDICARE ==
[2020-02-17] MEDS ORDERED: Lidocaine 1% PF 5 ML VIAL ONE (16:19)
[2020-02-17] MEDS ORDERED: Boostrix 0.5 ML (Tdap) VIAL ONE ×2 (16:19→16:20)
[2020-02-17] MEDS ORDERED: Cephalexin 250 MG CAP ONE (16:33)
[2020-02-17] MEDS ORDERED: Bacitracin 1 PK ONE (16:34)
[2020-02-17 17:31] LABS: ALT (SGPT) 13 U/L (8-55); AST (SGOT) 19 U/L (5-34); Albumin 2.8 g/dL (3.4-4.8); Alkaline Phosphatase 95 U/L (40-110); Anion Gap 15 mmol/L (10-20); BUN (Urea Nitrogen) 19 mg/dL (8.4-25.7); Bilirubin, Total 0.4 mg/dL (0.2-1.2); Calc. Creatinine Clearance 0 mL/min (70-130); Calcium 8.5 mg/dL (7.8-10.44); Carbon Dioxide 26 mmol/L (23-31); Chloride 103 mmol/L (98-107); Globulin 4.5 g/dL (2.4-3.5); Glucose 90 mg/dL (80-115); Hemoglobin 9.1 g/dL (14.0-18.0); Mean Corpuscular HGB CONC 30.9 g/dL (32.0-36.0); Mean Corpuscular Hemoglobin 24.5 pg (27.0-31.0); Mean Corpuscular Volume 79.3 fL (78.0-98.0); Mean Platelet Volume 7.5 fL (7.4-10.4); Platelet Count 321 thou/uL (130-400); Potassium 4.1 mmol/L (3.5-5.1); Protein, Total 7.3 g/dL (5.8-8.1); Red Blood Cell (RBC) Count 3.71 mill/uL (4.70-6.10); Sodium 140 mmol/L (136-145); White Blood Cell (WBC) Count 12.7 thou/uL (4.8-10.8)
[2020-02-17 17:44] LABS: #Basophils 0.1 thou/uL (0.0-0.2); #Eosinphils 0.1 thou/uL (0.0-0.7); #Lymphocytes 1.1 thou/uL (1.20-3.40); #Monocytes 0.6 thou/uL (0.11-0.59); #Neutrophils 10.8 thou/uL (1.40-6.50); %Basophils 0.5 % (0.0-1.0); %Eosinophils 1.1 % (0.0-10.0); %Lymphocytes 8.4 % (21.0-51.0); %Monocytes 4.9 % (0.0-10.0); %Neutrophils 85.1 % (42.0-75.0)
[2020-02-17 17:45] LABS: Bilirubin Negative (Negative); Blood, Urine Negative (Negative); Clarity Clear (Clear); Glucose, Urine (Dipstick) Negative (Negative); Ketone, Urine Negative (Negative); Leukocyte Negative (Negative); Nitrite Negative (Negative); Protein, Urine (Dipstick) Trace mg/dL (Neg-Trace); Specific Gravity, Urine 1.025 (1.005-1.030); Urobilinogen 0.2 mg/dL (Less than 2)
[2020-02-17 18:04] LABS: MDiff Complete? YES
[2020-02-17 18:05] LABS: Hypochromia SLIGHT = 6-15 cells (100X) (0-5/hpf); Microcytosis SLIGHT = 6-15 cells (100X) (0-5/hpf)
== END 2020-02-17 16:45 | disposition home or self-care (01) ==
LOC: BURERS 13:54
DX: M54.5 Low back pain (principal); R05 Cough; I10 Essential (primary) hypertension; E78.5 Hyperlipidemia, unspecified; F17.210 Nicotine dependence, cigarettes, uncomplicated; Z79.899 Other long term (current) drug therapy
CPT/HCPCS: 80053; 81003; 85025; 85652; 87040; 90715; 99283

== ENCOUNTER 2020-02-20 14:04 | Emergency (ER) | payer MEDICARE ==
[2020-02-20 14:47] LABS: Acetaminophen Less than 6.0 mcg/mL (10.0-30.0); Alcohol Less than 10 mg/dL (Less than 10); Salicylate Less than 8.0 mg/dL (15.0-30.0)
[2020-02-20 14:49] LABS: ALT (SGPT) 11 U/L (8-55); AST (SGOT) 28 U/L (5-34); Albumin 2.6 g/dL (3.4-4.8); Alkaline Phosphatase 83 U/L (40-110); Anion Gap 15 mmol/L (10-20); BUN (Urea Nitrogen) 21 mg/dL (8.4-25.7); Bilirubin, Total 0.4 mg/dL (0.2-1.2); Calc. Creatinine Clearance 0 mL/min (70-130); Calcium 8.3 mg/dL (7.8-10.44); Carbon Dioxide 25 mmol/L (23-31); Chloride 103 mmol/L (98-107); Globulin 4.4 g/dL (2.4-3.5); Glucose 103 mg/dL (80-115); Potassium 3.6 mmol/L (3.5-5.1); Sodium 139 mmol/L (136-145)
[2020-02-20 14:57] LABS: #Basophils 0.1 thou/uL (0.0-0.2); #Eosinphils 0.1 thou/uL (0.0-0.7); #Lymphocytes 0.8 thou/uL (1.20-3.40); #Monocytes 0.6 thou/uL (0.11-0.59); #Neutrophils 10.8 thou/uL (1.40-6.50); %Basophils 0.6 % (0.0-1.0); %Eosinophils 0.6 % (0.0-10.0); %Lymphocytes 6.6 % (21.0-51.0); %Monocytes 4.9 % (0.0-10.0); %Neutrophils 87.3 % (42.0-75.0); Anisocytosis SLIGHT = 6-15 cells (100X) (0-5/hpf); Hemoglobin 8.4 g/dL (14.0-18.0); Hypochromia SLIGHT = 6-15 cells (100X) (0-5/hpf); MDiff Complete? YES; Mean Corpuscular HGB CONC 30.1 g/dL (32.0-36.0); Mean Corpuscular Volume 79.8 fL (78.0-98.0); Mean Platelet Volume 7.3 fL (7.4-10.4); Microcytosis SLIGHT = 6-15 cells (100X) (0-5/hpf); Ovalocytes SLIGHT = 2-5 cells (100X) (0-1/hpf); Platelet Count 296 thou/uL (130-400); Poikilocytosis SLIGHT = 6-15 cells (100X) (0-5/hpf); Red Blood Cell (RBC) Count 3.51 mill/uL (4.70-6.10); Tear Drops SLIGHT = 2-5 cells (100X) (0-1/hpf); White Blood Cell (WBC) Count 12.4 thou/uL (4.8-10.8)
[2020-02-20] MEDS ORDERED: Piperacillin/Tazobactam 4.5 GM VIAL ONE (15:02)
--- NOTE | 2020-02-20 15:03 | RAD ---
XR Chest 1 View Portable HISTORY: Mental status changes COMPARISON: 03/05/2018 FINDINGS: The heart size is at upper limits of normal. The lungs are well expanded without focal area s of consolidation, pneumothorax or pleural effusions. IMPRESSION: No radiographic evidence of acute cardiopulmonary process.
--- NOTE | 2020-02-20 15:03 | CT ---
CT BRAIN WITHOUT CONTRAST: HISTORY:Fall. Head injury. Patient on anticoagulants COMPARISON:11/18/2019 FINDINGS: There are foci of decreased attenuation in the periventricular white matter, consistent with chronic small vessel ischemic disease. Cortical atrophy is again seen. No evidence of acute infarct, hemorrhage, midline shift or abnormal extra-axial fluid collections is seen. The ventricular size is appropriate and the basilar cisterns are patent. The bony calvarium is intact. There is mucosal disease in the paranasal sinuses. IMPRESSION: No CT evidence of acute intracranial process.
--- NOTE | 2020-02-20 15:06 | CT ---
CT CERVICAL SPINE WITH CORONAL AND SAGITTAL REFORMATIONS AND NO IV CONTRAST: HISTORY: Fall, neck pain FINDINGS: Multilevel degenerative changes are present. No fracture, subluxation or facet malalignment is identified. No prevertebral soft tissue swelling is apparent. The visualized lung apices show emphysematous changes4. IMPRESSION: No CT evidence for fracture or traumatic subluxation.
[2020-02-20 15:38] LABS: Bilirubin Small (Negative); Blood, Urine Trace (Negative); Clarity Clear (Clear); Glucose, Urine (Dipstick) Negative (Negative); Ketone, Urine Negative (Negative); Leukocyte Negative (Negative); Nitrite Negative (Negative); Protein, Urine (Dipstick) 30 mg/dL (Neg-Trace); Urobilinogen 0.2 mg/dL (Less than 2); pH, Urine 5.5 (5.0-9.0)
[2020-02-20 15:42] LABS: Bacteria/HPF None Seen HPF (None Seen); RBC/HPF 0-3 HPF (0-3); Specific Gravity, Urine 1.032 (1.002-1.036); Squamous Epithelial 0-3 HPF (0-3); WBC/HPF 0-3 HPF (0-3)
[2020-02-20 15:43] LABS: Yeast-Budding 2+ HPF (None Seen)
[2020-02-20 15:48] LABS: Cocaine Metabolite Screen Not Detected (NotDetected); Phencyclidine (PCP) Not Detected (NotDetected); THC/Cannabinoid Screen Not Detected (NotDetected)
[2020-02-20 15:49] LABS: Amphetamine Not Detected (NotDetected); Barbiturates Screen Not Detected (NotDetected); Benzodiazepine Screen Not Detected (NotDetected); Medtox Control Line Valid? VALID (VALID); Methadone Not Detected (NotDetected); Methamphetamine Not Detected (NotDetected); Opiate Screen Detected (NotDetected); Oxycodone Screen Not Detected (NotDetected); Tricyclic Screen Detected (NotDetected)
== END 2020-02-20 15:40 | disposition short-term general hospital (02) ==
LOC: BURERS 14:04
DX: A41.9 Sepsis, unspecified organism (principal); I96 Gangrene, not elsewhere classified; I10 Essential (primary) hypertension; E78.5 Hyperlipidemia, unspecified; Z89.611 Acquired absence of right leg above knee; F17.210 Nicotine dependence, cigarettes, uncomplicated; Z79.899 Other long term (current) drug therapy
CPT/HCPCS: 36415; 51701; 70450; 71045; 72125; 80053; 80306; 80307; 81003; 81015; 83605; 84443; 84484; 85025; 87040; 87077; 87149; 87186; 93005; 94760; 96365; J2543

== ENCOUNTER 2020-02-24 15:34 | Inpatient (IN) | payer MEDICARE ==
[2020-02-24] MEDS: HYDROcodone/Acetaminophen 10/325 mg Tablet PO PRN (19:52)
[2020-02-24] MEDS: Atorvastatin Calcium 10 MG TAB PO SCH (21:12)
[2020-02-24] MEDS: Apixaban 5 MG TAB PO SCH (21:12)
[2020-02-24] MEDS: Nicotine 21 MG PATCH TD SCH (21:12)
[2020-02-25] MEDS: HYDROcodone/Acetaminophen 10/325 mg Tablet PO PRN ×2 (03:55→15:59)
[2020-02-25] MEDS ORDERED: Polyethylene Glycol 3350 17 GM Packet PO PRN (06:53)
[2020-02-25] MEDS ORDERED: Ondansetron ODT 4 MG TAB PO PRN (06:53)
[2020-02-25] MEDS ORDERED: Ferrous Sulfate 325 MG TAB PO SCH (08:00)
[2020-02-25] MEDS ORDERED: Lisinopril 5 MG TAB PO SCH (09:00)
[2020-02-25] MEDS ORDERED: FLU VACC QS2020-21(65YR UP)/PF 240 MCG/0.7 ML SYRINGE IM ONE (09:00)
[2020-02-25] MEDS: Apixaban 5 MG TAB PO SCH ×2 (09:18→20:57)
[2020-02-25] MEDS: Furosemide 40 MG TAB PO SCH (09:18)
[2020-02-25] MEDS: ALPRAZolam 0.5 MG TAB PO SCH (09:18)
[2020-02-25] MEDS: Ferrous Sulfate 325 MG TAB PO SCH ×2 (09:18→20:58)
[2020-02-25] MEDS: Triple Antibiotic Oint 1 GM Packet TOP PRN (15:42)
[2020-02-25] MEDS: Atorvastatin Calcium 10 MG TAB PO SCH (20:57)
[2020-02-25] MEDS: Nicotine 21 MG PATCH TD SCH (21:00)
[2020-02-26 05:07] LABS: #Eosinphils 0.1 thou/uL (0.0-0.7); #Lymphocytes 1.4 thou/uL (1.20-3.40); #Monocytes 0.7 thou/uL (0.11-0.59); #Neutrophils 7.9 thou/uL (1.40-6.50); %Basophils 0.2 % (0.0-1.0); %Eosinophils 1.3 % (0.0-10.0); %Lymphocytes 13.9 % (21.0-51.0); %Neutrophils 77.5 % (42.0-75.0); Hemoglobin 7.7 g/dL (14.0-18.0); Mean Corpuscular HGB CONC 30.5 g/dL (32.0-36.0); Mean Corpuscular Hemoglobin 24.7 pg (27.0-31.0); Mean Platelet Volume 7.1 fL (7.4-10.4); Platelet Count 171 thou/uL (130-400); RBC Distribution Width 16.1 % (11.5-14.5); Red Blood Cell (RBC) Count 3.13 mill/uL (4.70-6.10); White Blood Cell (WBC) Count 10.2 thou/uL (4.8-10.8)
[2020-02-26 05:19] LABS: ALT (SGPT) 21 U/L (8-55); AST (SGOT) 45 U/L (5-34); Albumin 2.2 g/dL (3.4-4.8); Alkaline Phosphatase 83 U/L (40-110); Anion Gap 15 mmol/L (10-20); BUN (Urea Nitrogen) 17 mg/dL (8.4-25.7); Bilirubin, Total 0.3 mg/dL (0.2-1.2); Calc. Creatinine Clearance 0 mL/min (70-130); Calcium 7.6 mg/dL (7.8-10.44); Carbon Dioxide 28 mmol/L (23-31); Chloride 100 mmol/L (98-107); Glucose 111 mg/dL (80-115); Potassium 3.6 mmol/L (3.5-5.1); Protein, Total 6.2 g/dL (5.8-8.1); Sodium 139 mmol/L (136-145)
[2020-02-26 06:24] LABS: Anisocytosis SLIGHT = 6-15 cells (100X) (0-5/hpf); MDiff Complete? YES; Platelet Morphology Comment Appears Adequate
[2020-02-26] MEDS: Ferrous Sulfate 325 MG TAB PO SCH ×2 (08:15→20:30)
[2020-02-26] MEDS: ALPRAZolam 0.5 MG TAB PO SCH (08:15)
[2020-02-26] MEDS: Apixaban 5 MG TAB PO SCH ×2 (08:15→20:29)
[2020-02-26] MEDS: Furosemide 40 MG TAB PO SCH (08:15)
[2020-02-26] MEDS: HYDROcodone/Acetaminophen 10/325 mg Tablet PO PRN (11:24)
[2020-02-26 12:15] VITALS: BMI 27.0
[2020-02-26] MEDS: Nicotine 21 MG PATCH TD SCH (20:29)
[2020-02-26] MEDS: Atorvastatin Calcium 10 MG TAB PO SCH (20:30)
[2020-02-27 06:00] LABS: Platelet Count 185 thou/uL (130-400)
[2020-02-27] MEDS: ALPRAZolam 0.5 MG TAB PO SCH (09:50)
[2020-02-27] MEDS: Ferrous Sulfate 325 MG TAB PO SCH ×3 (09:51→21:50)
[2020-02-27] MEDS: Apixaban 5 MG TAB PO SCH ×2 (09:51→21:44)
[2020-02-27] MEDS: Furosemide 40 MG TAB PO SCH (09:51)
[2020-02-27] MEDS: HYDROcodone/Acetaminophen 10/325 mg Tablet PO PRN ×2 (09:59→21:46)
[2020-02-27] MEDS: Atorvastatin Calcium 10 MG TAB PO SCH (21:43)
[2020-02-27] MEDS: Nicotine 21 MG PATCH TD SCH (21:44)
[2020-02-27] MEDS: Cyclobenzaprine 10 MG TAB PO PRN (21:46)
[2020-02-28] MEDS: Polyethylene Glycol 3350 17 GM Packet PO SCH (08:57)
[2020-02-28] MEDS: Ferrous Sulfate 325 MG TAB PO SCH ×2 (08:57→20:49)
[2020-02-28] MEDS: Furosemide 40 MG TAB PO SCH (08:58)
[2020-02-28] MEDS: Apixaban 5 MG TAB PO SCH ×2 (08:58→20:48)
[2020-02-28] MEDS: ALPRAZolam 0.5 MG TAB PO SCH (08:58)
[2020-02-28] MEDS: Docusate Sodium 100 MG/10 ML UDCUP PO PRN (08:59)
[2020-02-28] MEDS: HYDROcodone/Acetaminophen 10/325 mg Tablet PO PRN ×3 (08:59→20:37)
[2020-02-28] MEDS: Cyclobenzaprine 10 MG TAB PO PRN ×2 (13:59→20:38)
[2020-02-28] MEDS: Atorvastatin Calcium 10 MG TAB PO SCH (20:38)
[2020-02-28] MEDS: Nicotine 21 MG PATCH TD SCH (20:39)
[2020-02-29 06:29] LABS: Hemoglobin 7.5 g/dL (14.0-18.0); Platelet Count 206 thou/uL (130-400)
[2020-02-29] MEDS: Ferrous Sulfate 325 MG TAB PO SCH ×2 (08:39→20:39)
[2020-02-29] MEDS: Apixaban 5 MG TAB PO SCH (08:39)
[2020-02-29] MEDS: Furosemide 40 MG TAB PO SCH (08:39)
[2020-02-29] MEDS: ALPRAZolam 0.5 MG TAB PO SCH (08:39)
[2020-02-29] MEDS: Polyethylene Glycol 3350 17 GM Packet PO SCH (08:40)
[2020-02-29] MEDS: HYDROcodone/Acetaminophen 10/325 mg Tablet PO PRN (09:24)
[2020-02-29] MEDS: Apixaban 2.5 MG TAB PO SCH (20:39)
[2020-02-29] MEDS: Atorvastatin Calcium 10 MG TAB PO SCH (20:39)
[2020-02-29] MEDS: Nicotine 21 MG PATCH TD SCH (20:40)
[2020-03-01] MEDS: Loratadine 10 MG TAB PO SCH (09:03)
[2020-03-01] MEDS: Apixaban 2.5 MG TAB PO SCH (09:03)
[2020-03-01] MEDS: Furosemide 40 MG TAB PO SCH (09:03)
[2020-03-01] MEDS: Polyethylene Glycol 3350 17 GM Packet PO SCH (09:03)
[2020-03-01] MEDS: Ferrous Sulfate 325 MG TAB PO SCH ×2 (09:03→17:04)
[2020-03-01] MEDS: predniSONE 20 MG TAB PO SCH (09:03)
[2020-03-01] MEDS: ALPRAZolam 0.5 MG TAB PO SCH (09:04)
[2020-03-01] MEDS ORDERED: Sulfameth/Trimethoprim DS 800-160mg TAB PO SCH (12:30)
[2020-03-01] MEDS: Atorvastatin Calcium 10 MG TAB PO SCH (20:47)
[2020-03-01] MEDS: Apixaban 5 MG TAB PO SCH (20:48)
[2020-03-01] MEDS: Nicotine 21 MG PATCH TD SCH (20:48)
[2020-03-01] MEDS: Sulfameth/Trimethoprim DS 800-160mg TAB PO SCH (20:48)
[2020-03-02 06:12] LABS: #Lymphocytes 1.2 thou/uL (1.20-3.40); #Monocytes 0.6 thou/uL (0.11-0.59); #Neutrophils 9.7 thou/uL (1.40-6.50); %Basophils 0.4 % (0.0-1.0); %Eosinophils 0.4 % (0.0-10.0); %Lymphocytes 10.1 % (21.0-51.0); %Monocytes 5.2 % (0.0-10.0); %Neutrophils 83.9 % (42.0-75.0); Anisocytosis SLIGHT = 6-15 cells (100X) (0-5/hpf); Hypochromia SLIGHT = 6-15 cells (100X) (0-5/hpf); MDiff Complete? YES; Mean Corpuscular HGB CONC 29.9 g/dL (32.0-36.0); Mean Corpuscular Hemoglobin 24.1 pg (27.0-31.0); Mean Corpuscular Volume 80.6 fL (78.0-98.0); Mean Platelet Volume 8.5 fL (7.4-10.4); Microcytosis SLIGHT = 6-15 cells (100X) (0-5/hpf); Ovalocytes SLIGHT = 2-5 cells (100X) (0-1/hpf); Platelet Count 255 thou/uL (130-400); Poikilocytosis SLIGHT = 6-15 cells (100X) (0-5/hpf); RBC Distribution Width 16.5 % (11.5-14.5); Red Blood Cell (RBC) Count 3.31 mill/uL (4.70-6.10); White Blood Cell (WBC) Count 11.5 thou/uL (4.8-10.8)
[2020-03-02] MEDS: ALPRAZolam 0.5 MG TAB PO SCH (08:39)
[2020-03-02] MEDS: Sulfameth/Trimethoprim DS 800-160mg TAB PO SCH ×2 (08:40→20:50)
[2020-03-02] MEDS: Apixaban 5 MG TAB PO SCH ×2 (08:40→20:50)
[2020-03-02] MEDS: Polyethylene Glycol 3350 17 GM Packet PO SCH (08:40)
[2020-03-02] MEDS: Furosemide 40 MG TAB PO SCH (08:40)
[2020-03-02] MEDS: Loratadine 10 MG TAB PO SCH (08:40)
[2020-03-02] MEDS: predniSONE 20 MG TAB PO SCH (08:41)
[2020-03-02] MEDS: Ferrous Sulfate 325 MG TAB PO SCH ×2 (08:44→16:55)
[2020-03-02] MEDS: HYDROcodone/Acetaminophen 10/325 mg Tablet PO PRN ×2 (14:27→20:48)
[2020-03-02] MEDS: Cyclobenzaprine 10 MG TAB PO PRN (20:49)
[2020-03-02] MEDS: Nicotine 21 MG PATCH TD SCH (20:50)
[2020-03-02] MEDS: Atorvastatin Calcium 10 MG TAB PO SCH (20:50)
[2020-03-03] MEDS: ALPRAZolam 0.5 MG TAB PO SCH (09:03)
[2020-03-03] MEDS: Apixaban 5 MG TAB PO SCH ×2 (09:04→20:42)
[2020-03-03] MEDS: Docusate Sodium 100 MG/10 ML UDCUP PO PRN (09:04)
[2020-03-03] MEDS: Ferrous Sulfate 325 MG TAB PO SCH ×2 (09:04→17:11)
[2020-03-03] MEDS: Sulfameth/Trimethoprim DS 800-160mg TAB PO SCH ×2 (09:05→20:42)
[2020-03-03] MEDS: Loratadine 10 MG TAB PO SCH (09:05)
[2020-03-03] MEDS: predniSONE 20 MG TAB PO SCH (09:05)
[2020-03-03] MEDS: Furosemide 40 MG TAB PO SCH (09:05)
[2020-03-03] MEDS: Polyethylene Glycol 3350 17 GM Packet PO SCH (09:05)
[2020-03-03] MEDS: HYDROcodone/Acetaminophen 10/325 mg Tablet PO PRN ×2 (09:13→16:11)
[2020-03-03] MEDS: Triple Antibiotic Oint 1 GM Packet TOP PRN (16:51)
[2020-03-03] MEDS: Nicotine 21 MG PATCH TD SCH (20:42)
[2020-03-03] MEDS: Atorvastatin Calcium 10 MG TAB PO SCH (20:42)
[2020-03-04] MEDS: HYDROcodone/Acetaminophen 10/325 mg Tablet PO PRN ×2 (00:30→09:09)
[2020-03-04 05:07] LABS: Hemoglobin 8.1 g/dL (14.0-18.0); Platelet Count 243 thou/uL (130-400)
[2020-03-04] MEDS: ALPRAZolam 0.5 MG TAB PO SCH (09:09)
[2020-03-04] MEDS: Docusate Sodium 100 MG/10 ML UDCUP PO PRN (09:10)
[2020-03-04] MEDS: Sulfameth/Trimethoprim DS 800-160mg TAB PO SCH ×2 (09:11→21:57)
[2020-03-04] MEDS: predniSONE 20 MG TAB PO SCH (09:11)
[2020-03-04] MEDS: Polyethylene Glycol 3350 17 GM Packet PO SCH (09:11)
[2020-03-04] MEDS: Loratadine 10 MG TAB PO SCH (09:12)
[2020-03-04] MEDS: Furosemide 40 MG TAB PO SCH (09:12)
[2020-03-04] MEDS: Ferrous Sulfate 325 MG TAB PO SCH ×2 (09:12→17:50)
[2020-03-04] MEDS: Apixaban 5 MG TAB PO SCH ×2 (09:12→21:57)
[2020-03-04] MEDS: Atorvastatin Calcium 10 MG TAB PO SCH (21:57)
[2020-03-04] MEDS: Nicotine 21 MG PATCH TD SCH (21:58)
[2020-03-05] MEDS: Cyclobenzaprine 10 MG TAB PO PRN ×2 (00:33→21:41)
[2020-03-05] MEDS: HYDROcodone/Acetaminophen 10/325 mg Tablet PO PRN ×3 (00:33→21:41)
[2020-03-05] MEDS: Sulfameth/Trimethoprim DS 800-160mg TAB PO SCH ×2 (08:41→21:41)
[2020-03-05] MEDS: Apixaban 5 MG TAB PO SCH ×2 (08:41→21:42)
[2020-03-05] MEDS: Triple Antibiotic Oint 1 GM Packet TOP PRN (08:41)
[2020-03-05] MEDS: ALPRAZolam 0.5 MG TAB PO SCH (08:41)
[2020-03-05] MEDS: Furosemide 40 MG TAB PO SCH (08:41)
[2020-03-05] MEDS: predniSONE 20 MG TAB PO SCH (08:42)
[2020-03-05] MEDS: Polyethylene Glycol 3350 17 GM Packet PO SCH (08:42)
[2020-03-05] MEDS: Loratadine 10 MG TAB PO SCH (08:42)
[2020-03-05] MEDS: Ferrous Sulfate 325 MG TAB PO SCH ×2 (08:42→16:11)
[2020-03-05] MEDS: Nicotine 21 MG PATCH TD SCH (21:40)
[2020-03-05] MEDS: Atorvastatin Calcium 10 MG TAB PO SCH (21:41)
[2020-03-06] MEDS: HYDROcodone/Acetaminophen 10/325 mg Tablet PO PRN ×3 (02:19→20:00)
[2020-03-06 05:47] LABS: ALT (SGPT) 49 U/L (8-55); AST (SGOT) 19 U/L (5-34); Albumin 2.8 g/dL (3.4-4.8); Alkaline Phosphatase 261 U/L (40-110); Anion Gap 17 mmol/L (10-20); BUN (Urea Nitrogen) 32 mg/dL (8.4-25.7); Bilirubin, Total Less than 0.2 mg/dL (0.2-1.2); Calc. Creatinine Clearance 68 mL/min (70-130); Calcium 8.5 mg/dL (7.8-10.44); Carbon Dioxide 22 mmol/L (23-31); Chloride 100 mmol/L (98-107); Globulin 4.7 g/dL (2.4-3.5); Glucose 99 mg/dL (80-115); Potassium 4.6 mmol/L (3.5-5.1); Protein, Total 7.5 g/dL (5.8-8.1); Sodium 134 mmol/L (136-145)
[2020-03-06 05:52] LABS: #Basophils 0.1 thou/uL (0.0-0.2); #Lymphocytes 2.5 thou/uL (1.20-3.40); #Monocytes 0.8 thou/uL (0.11-0.59); #Neutrophils 8.4 thou/uL (1.40-6.50); %Basophils 0.9 % (0.0-1.0); %Eosinophils 0.4 % (0.0-10.0); %Monocytes 6.8 % (0.0-10.0); %Neutrophils 70.9 % (42.0-75.0); Anisocytosis SLIGHT = 6-15 cells (100X) (0-5/hpf); Hemoglobin 8.9 g/dL (14.0-18.0); Hypochromia SLIGHT = 6-15 cells (100X) (0-5/hpf); MDiff Complete? YES; Mean Corpuscular Hemoglobin 24.3 pg (27.0-31.0); Mean Corpuscular Volume 81.2 fL (78.0-98.0); Mean Platelet Volume 7.7 fL (7.4-10.4); Platelet Count 269 thou/uL (130-400); Platelet Morphology Comment Appears Adequate; RBC Distribution Width 17.5 % (11.5-14.5); Red Blood Cell (RBC) Count 3.65 mill/uL (4.70-6.10); White Blood Cell (WBC) Count 11.8 thou/uL (4.8-10.8)
[2020-03-06] MEDS: Apixaban 5 MG TAB PO SCH ×2 (08:06→20:00)
[2020-03-06] MEDS: Ferrous Sulfate 325 MG TAB PO SCH ×2 (08:06→16:53)
[2020-03-06] MEDS: ALPRAZolam 0.5 MG TAB PO SCH (08:06)
[2020-03-06] MEDS: Polyethylene Glycol 3350 17 GM Packet PO SCH (08:06)
[2020-03-06] MEDS: Furosemide 40 MG TAB PO SCH (08:07)
[2020-03-06] MEDS: Sulfameth/Trimethoprim DS 800-160mg TAB PO SCH ×2 (08:07→20:00)
[2020-03-06] MEDS: Loratadine 10 MG TAB PO SCH (08:07)
[2020-03-06] MEDS: Triple Antibiotic Oint 1 GM Packet TOP PRN (10:59)
[2020-03-06] MEDS: Nicotine 21 MG PATCH TD SCH (20:00)
[2020-03-06] MEDS: Cyclobenzaprine 10 MG TAB PO PRN (20:00)
[2020-03-06] MEDS: Atorvastatin Calcium 10 MG TAB PO SCH (20:00)
[2020-03-07] MEDS: HYDROcodone/Acetaminophen 10/325 mg Tablet PO PRN ×2 (08:35→15:16)
[2020-03-07] MEDS: ALPRAZolam 0.5 MG TAB PO SCH (08:35)
[2020-03-07] MEDS: Polyethylene Glycol 3350 17 GM Packet PO SCH (08:35)
[2020-03-07] MEDS: Furosemide 40 MG TAB PO SCH (08:36)
[2020-03-07] MEDS: Sulfameth/Trimethoprim DS 800-160mg TAB PO SCH ×3 (08:36→23:30)
[2020-03-07] MEDS: Apixaban 5 MG TAB PO SCH ×3 (08:37→23:30)
[2020-03-07] MEDS: Loratadine 10 MG TAB PO SCH (08:37)
[2020-03-07] MEDS: Ferrous Sulfate 325 MG TAB PO SCH ×2 (08:37→17:15)
[2020-03-07] MEDS: Triple Antibiotic Oint 1 GM Packet TOP PRN (15:21)
[2020-03-07] MEDS: Nicotine 21 MG PATCH TD SCH ×2 (21:56→23:30)
[2020-03-07] MEDS: Atorvastatin Calcium 10 MG TAB PO SCH ×2 (21:56→23:30)
[2020-03-08] MEDS: HYDROcodone/Acetaminophen 10/325 mg Tablet PO PRN ×3 (01:57→20:39)
[2020-03-08 05:12] LABS: Hemoglobin 9.3 g/dL (14.0-18.0); Platelet Count 216 thou/uL (130-400)
[2020-03-08] MEDS: ALPRAZolam 0.5 MG TAB PO SCH (08:30)
[2020-03-08] MEDS: Loratadine 10 MG TAB PO SCH (08:31)
[2020-03-08] MEDS: Furosemide 40 MG TAB PO SCH (08:31)
[2020-03-08] MEDS: Ferrous Sulfate 325 MG TAB PO SCH ×2 (08:31→17:18)
[2020-03-08] MEDS: Polyethylene Glycol 3350 17 GM Packet PO SCH (08:31)
[2020-03-08] MEDS: Apixaban 5 MG TAB PO SCH (20:39)
[2020-03-08] MEDS: Sulfameth/Trimethoprim DS 800-160mg TAB PO SCH (20:39)
[2020-03-08] MEDS: Atorvastatin Calcium 10 MG TAB PO SCH (20:40)
[2020-03-08] MEDS: Nicotine 21 MG PATCH TD SCH (20:45)
[2020-03-08] MEDS: Cyclobenzaprine 10 MG TAB PO PRN (21:00)
[2020-03-09] MEDS: HYDROcodone/Acetaminophen 10/325 mg Tablet PO PRN ×3 (04:32→14:59)
[2020-03-09] MEDS: ALPRAZolam 0.5 MG TAB PO SCH (09:18)
[2020-03-09] MEDS: Loratadine 10 MG TAB PO SCH (09:18)
[2020-03-09] MEDS: Apixaban 5 MG TAB PO SCH ×2 (09:19→20:54)
[2020-03-09] MEDS: Furosemide 40 MG TAB PO SCH (09:19)
[2020-03-09] MEDS: Polyethylene Glycol 3350 17 GM Packet PO SCH (09:20)
[2020-03-09] MEDS: Ferrous Sulfate 325 MG TAB PO SCH ×2 (09:20→17:02)
[2020-03-09] MEDS: Cyclobenzaprine 10 MG TAB PO PRN (12:15)
[2020-03-09] MEDS: Triple Antibiotic Oint 1 GM Packet TOP PRN (17:03)
[2020-03-09] MEDS: Nicotine 21 MG PATCH TD SCH (20:53)
[2020-03-09] MEDS: Atorvastatin Calcium 10 MG TAB PO SCH (20:54)
[2020-03-10 05:44] LABS: Hemoglobin 9.5 g/dL (14.0-18.0); Platelet Count 191 thou/uL (130-400)
[2020-03-10] MEDS ORDERED: Benzonatate 100 MG CAP PO PRN (07:25)
[2020-03-10] MEDS: Polyethylene Glycol 3350 17 GM Packet PO SCH (09:08)
[2020-03-10] MEDS: HYDROcodone/Acetaminophen 10/325 mg Tablet PO PRN ×2 (09:08→20:55)
[2020-03-10] MEDS: ALPRAZolam 0.5 MG TAB PO SCH (09:10)
[2020-03-10] MEDS: Apixaban 5 MG TAB PO SCH ×2 (09:10→20:49)
[2020-03-10] MEDS: Ferrous Sulfate 325 MG TAB PO SCH ×2 (09:10→16:20)
[2020-03-10] MEDS: Furosemide 40 MG TAB PO SCH (09:11)
[2020-03-10] MEDS: Loratadine 10 MG TAB PO SCH (09:11)
[2020-03-10] MEDS: Atorvastatin Calcium 10 MG TAB PO SCH (20:49)
[2020-03-10] MEDS: Nicotine 21 MG PATCH TD SCH (20:49)
[2020-03-10] MEDS: Cyclobenzaprine 10 MG TAB PO PRN (20:55)
[2020-03-11] MEDS: Cyclobenzaprine 10 MG TAB PO PRN ×2 (09:20→15:50)
[2020-03-11] MEDS: HYDROcodone/Acetaminophen 10/325 mg Tablet PO PRN ×2 (09:20→15:50)
[2020-03-11] MEDS: Ferrous Sulfate 325 MG TAB PO SCH ×2 (09:22→18:14)
[2020-03-11] MEDS: Apixaban 5 MG TAB PO SCH ×2 (09:23→20:41)
[2020-03-11] MEDS: ALPRAZolam 0.5 MG TAB PO SCH (09:25)
[2020-03-11] MEDS: Furosemide 40 MG TAB PO SCH (09:25)
[2020-03-11] MEDS: Loratadine 10 MG TAB PO SCH (09:26)
[2020-03-11] MEDS: Polyethylene Glycol 3350 17 GM Packet PO SCH (09:26)
[2020-03-11] MEDS: Atorvastatin Calcium 10 MG TAB PO SCH (20:41)
[2020-03-11] MEDS: Nicotine 21 MG PATCH TD SCH (20:43)
[2020-03-12] MEDS: HYDROcodone/Acetaminophen 10/325 mg Tablet PO PRN ×3 (05:17→21:16)
[2020-03-12 05:31] LABS: Hemoglobin 10.3 g/dL (14.0-18.0); Platelet Count 185 thou/uL (130-400)
[2020-03-12] MEDS: Polyethylene Glycol 3350 17 GM Packet PO SCH (08:39)
[2020-03-12] MEDS: ALPRAZolam 0.5 MG TAB PO SCH (08:39)
[2020-03-12] MEDS: Ferrous Sulfate 325 MG TAB PO SCH ×2 (08:40→17:01)
[2020-03-12] MEDS: Loratadine 10 MG TAB PO SCH (08:40)
[2020-03-12] MEDS: Furosemide 40 MG TAB PO SCH (08:40)
[2020-03-12] MEDS: Apixaban 5 MG TAB PO SCH ×2 (08:41→21:09)
[2020-03-12] MEDS: Atorvastatin Calcium 10 MG TAB PO SCH (21:09)
[2020-03-12] MEDS: Nicotine 21 MG PATCH TD SCH (21:15)
[2020-03-12] MEDS: Cyclobenzaprine 10 MG TAB PO PRN (21:18)
[2020-03-13] MEDS: Loratadine 10 MG TAB PO SCH (08:09)
[2020-03-13] MEDS: ALPRAZolam 0.5 MG TAB PO SCH (08:09)
[2020-03-13] MEDS: Apixaban 5 MG TAB PO SCH ×2 (08:10→20:38)
[2020-03-13] MEDS: Polyethylene Glycol 3350 17 GM Packet PO SCH (08:10)
[2020-03-13] MEDS: Furosemide 40 MG TAB PO SCH (08:10)
[2020-03-13] MEDS: HYDROcodone/Acetaminophen 10/325 mg Tablet PO PRN ×3 (08:13→23:28)
[2020-03-13] MEDS: Ferrous Sulfate 325 MG TAB PO SCH ×2 (08:16→18:00)
[2020-03-13] MEDS: Cyclobenzaprine 10 MG TAB PO PRN (20:37)
[2020-03-13] MEDS: Atorvastatin Calcium 10 MG TAB PO SCH (20:38)
[2020-03-13] MEDS: Nicotine 21 MG PATCH TD SCH (20:38)
[2020-03-14 05:33] LABS: Hemoglobin 9.4 g/dL (14.0-18.0); Platelet Count 188 thou/uL (130-400)
[2020-03-14] MEDS: ALPRAZolam 0.5 MG TAB PO SCH (10:11)
[2020-03-14] MEDS: Polyethylene Glycol 3350 17 GM Packet PO SCH (10:11)
[2020-03-14] MEDS: Apixaban 5 MG TAB PO SCH ×2 (10:11→20:14)
[2020-03-14] MEDS: Furosemide 40 MG TAB PO SCH (10:11)
[2020-03-14] MEDS: Loratadine 10 MG TAB PO SCH (10:11)
[2020-03-14] MEDS: Ferrous Sulfate 325 MG TAB PO SCH ×2 (10:12→17:16)
[2020-03-14] MEDS: HYDROcodone/Acetaminophen 10/325 mg Tablet PO PRN ×3 (10:16→22:38)
[2020-03-14] MEDS: Atorvastatin Calcium 10 MG TAB PO SCH (20:14)
[2020-03-14] MEDS: Nicotine 21 MG PATCH TD SCH (20:17)
[2020-03-14] MEDS: Cyclobenzaprine 10 MG TAB PO PRN (22:38)
[2020-03-15] MEDS: Apixaban 5 MG TAB PO SCH ×2 (08:31→21:30)
[2020-03-15] MEDS: Loratadine 10 MG TAB PO SCH (08:31)
[2020-03-15] MEDS: Polyethylene Glycol 3350 17 GM Packet PO SCH (08:31)
[2020-03-15] MEDS: Furosemide 40 MG TAB PO SCH (08:31)
[2020-03-15] MEDS: ALPRAZolam 0.5 MG TAB PO SCH (08:31)
[2020-03-15] MEDS: HYDROcodone/Acetaminophen 10/325 mg Tablet PO PRN ×3 (08:31→23:42)
[2020-03-15] MEDS: Ferrous Sulfate 325 MG TAB PO SCH ×2 (08:33→16:13)
[2020-03-15] MEDS: Atorvastatin Calcium 10 MG TAB PO SCH (21:29)
[2020-03-15] MEDS: Nicotine 21 MG PATCH TD SCH (21:30)
[2020-03-16 05:12] LABS: Hemoglobin 9.7 g/dL (14.0-18.0); Platelet Count 162 thou/uL (130-400)
[2020-03-16] MEDS: Apixaban 5 MG TAB PO SCH ×2 (08:34→20:27)
[2020-03-16] MEDS: Loratadine 10 MG TAB PO SCH (08:34)
[2020-03-16] MEDS: ALPRAZolam 0.5 MG TAB PO SCH (08:34)
[2020-03-16] MEDS: Ferrous Sulfate 325 MG TAB PO SCH ×3 (08:34→18:12)
[2020-03-16] MEDS: Furosemide 40 MG TAB PO SCH (08:34)
[2020-03-16] MEDS: Polyethylene Glycol 3350 17 GM Packet PO SCH (08:35)
[2020-03-16] MEDS: HYDROcodone/Acetaminophen 10/325 mg Tablet PO PRN ×2 (08:51→20:31)
[2020-03-16] MEDS: Atorvastatin Calcium 10 MG TAB PO SCH (20:27)
[2020-03-16] MEDS: Nicotine 21 MG PATCH TD SCH (20:28)
[2020-03-17] MEDS: ALPRAZolam 0.5 MG TAB PO SCH (09:10)
[2020-03-17] MEDS: Loratadine 10 MG TAB PO SCH (09:10)
[2020-03-17] MEDS: Furosemide 40 MG TAB PO SCH (09:10)
[2020-03-17] MEDS: Polyethylene Glycol 3350 17 GM Packet PO SCH (09:10)
[2020-03-17] MEDS: Apixaban 5 MG TAB PO SCH ×2 (09:10→21:11)
[2020-03-17] MEDS: Ferrous Sulfate 325 MG TAB PO SCH ×2 (12:00→18:00)
[2020-03-17] MEDS: HYDROcodone/Acetaminophen 10/325 mg Tablet PO PRN (17:17)
[2020-03-17] MEDS: Atorvastatin Calcium 10 MG TAB PO SCH (21:11)
[2020-03-17] MEDS: Nicotine 21 MG PATCH TD SCH (21:11)
[2020-03-18 06:32] LABS: Hemoglobin 9.9 g/dL (14.0-18.0); Platelet Count 145 thou/uL (130-400)
[2020-03-18] MEDS: ALPRAZolam 0.5 MG TAB PO SCH (08:20)
[2020-03-18] MEDS: Loratadine 10 MG TAB PO SCH (08:20)
[2020-03-18] MEDS: Polyethylene Glycol 3350 17 GM Packet PO SCH (08:20)
[2020-03-18] MEDS: Furosemide 40 MG TAB PO SCH (08:20)
[2020-03-18] MEDS: Apixaban 5 MG TAB PO SCH ×2 (08:20→21:01)
[2020-03-18] MEDS: Ferrous Sulfate 325 MG TAB PO SCH ×2 (08:20→17:45)
[2020-03-18] MEDS: HYDROcodone/Acetaminophen 10/325 mg Tablet PO PRN (18:45)
[2020-03-18] MEDS: Nicotine 21 MG PATCH TD SCH (18:47)
[2020-03-18] MEDS: Atorvastatin Calcium 10 MG TAB PO SCH (21:01)
[2020-03-19] MEDS: HYDROcodone/Acetaminophen 10/325 mg Tablet PO PRN ×3 (02:09→20:33)
[2020-03-19] MEDS: Ferrous Sulfate 325 MG TAB PO SCH ×2 (08:20→17:07)
[2020-03-19] MEDS: Polyethylene Glycol 3350 17 GM Packet PO SCH (08:21)
[2020-03-19] MEDS: Furosemide 40 MG TAB PO SCH (08:22)
[2020-03-19] MEDS: Loratadine 10 MG TAB PO SCH (08:22)
[2020-03-19] MEDS: ALPRAZolam 0.5 MG TAB PO SCH (08:22)
[2020-03-19] MEDS: Apixaban 5 MG TAB PO SCH ×2 (08:24→20:23)
[2020-03-19] MEDS: Atorvastatin Calcium 10 MG TAB PO SCH (20:22)
[2020-03-19] MEDS: Nicotine 21 MG PATCH TD SCH (20:23)
[2020-03-20] MEDS: HYDROcodone/Acetaminophen 10/325 mg Tablet PO PRN ×2 (04:32→15:18)
[2020-03-20 05:52] LABS: Platelet Count 127 thou/uL (130-400)
[2020-03-20] MEDS: Ferrous Sulfate 325 MG TAB PO SCH ×2 (08:17→22:39)
[2020-03-20] MEDS: Furosemide 40 MG TAB PO SCH (08:17)
[2020-03-20] MEDS: ALPRAZolam 0.5 MG TAB PO SCH (08:17)
[2020-03-20] MEDS: Loratadine 10 MG TAB PO SCH (08:17)
[2020-03-20] MEDS: Apixaban 5 MG TAB PO SCH ×2 (08:17→20:46)
[2020-03-20] MEDS: Polyethylene Glycol 3350 17 GM Packet PO SCH (08:18)
[2020-03-20] MEDS: Nicotine 21 MG PATCH TD SCH (20:46)
[2020-03-20] MEDS: Atorvastatin Calcium 10 MG TAB PO SCH (20:46)
[2020-03-21] MEDS: Furosemide 40 MG TAB PO SCH (09:32)
[2020-03-21] MEDS: Loratadine 10 MG TAB PO SCH (09:32)
[2020-03-21] MEDS: Apixaban 5 MG TAB PO SCH ×2 (09:33→20:42)
[2020-03-21] MEDS: ALPRAZolam 0.5 MG TAB PO SCH (09:33)
[2020-03-21] MEDS: Ferrous Sulfate 325 MG TAB PO SCH ×2 (09:34→17:56)
[2020-03-21] MEDS: Polyethylene Glycol 3350 17 GM Packet PO SCH (09:35)
[2020-03-21] MEDS: HYDROcodone/Acetaminophen 10/325 mg Tablet PO PRN ×2 (10:01→20:40)
[2020-03-21] MEDS: Nicotine 21 MG PATCH TD SCH (20:40)
[2020-03-21] MEDS: Atorvastatin Calcium 10 MG TAB PO SCH (20:40)
[2020-03-22 05:56] LABS: Hemoglobin 14.1 g/dL (14.0-18.0); Platelet Count 88 thou/uL (130-400)
[2020-03-22] MEDS: HYDROcodone/Acetaminophen 10/325 mg Tablet PO PRN ×3 (10:09→21:33)
[2020-03-22] MEDS: Furosemide 40 MG TAB PO SCH (10:10)
[2020-03-22] MEDS: Loratadine 10 MG TAB PO SCH (10:11)
[2020-03-22] MEDS: Polyethylene Glycol 3350 17 GM Packet PO SCH (10:11)
[2020-03-22] MEDS: Apixaban 5 MG TAB PO SCH ×2 (10:11→20:24)
[2020-03-22] MEDS: Ferrous Sulfate 325 MG TAB PO SCH ×2 (10:11→17:28)
[2020-03-22] MEDS: ALPRAZolam 0.5 MG TAB PO SCH (10:11)
[2020-03-22] MEDS: Atorvastatin Calcium 10 MG TAB PO SCH (20:24)
[2020-03-22] MEDS: Nicotine 21 MG PATCH TD SCH (20:24)
[2020-03-23] MEDS: Polyethylene Glycol 3350 17 GM Packet PO SCH (09:03)
[2020-03-23] MEDS: Loratadine 10 MG TAB PO SCH (09:04)
[2020-03-23] MEDS: Ferrous Sulfate 325 MG TAB PO SCH ×2 (09:04→16:23)
[2020-03-23] MEDS: Apixaban 5 MG TAB PO SCH ×2 (09:04→20:38)
[2020-03-23] MEDS: ALPRAZolam 0.5 MG TAB PO SCH (09:04)
[2020-03-23] MEDS: Furosemide 40 MG TAB PO SCH (09:04)
[2020-03-23] MEDS: HYDROcodone/Acetaminophen 10/325 mg Tablet PO PRN ×2 (13:23→20:39)
[2020-03-23] MEDS: Cyclobenzaprine 10 MG TAB PO PRN (15:45)
[2020-03-23] MEDS: Atorvastatin Calcium 10 MG TAB PO SCH (20:39)
[2020-03-23] MEDS: Nicotine 21 MG PATCH TD SCH (20:40)
[2020-03-24 05:29] LABS: Hemoglobin 10.4 g/dL (14.0-18.0); Platelet Count 111 thou/uL (130-400)
[2020-03-24] MEDS: Ferrous Sulfate 325 MG TAB PO SCH ×2 (09:32→17:45)
[2020-03-24] MEDS: Apixaban 5 MG TAB PO SCH ×2 (09:32→21:35)
[2020-03-24] MEDS: Loratadine 10 MG TAB PO SCH (09:32)
[2020-03-24] MEDS: Polyethylene Glycol 3350 17 GM Packet PO SCH (09:32)
[2020-03-24] MEDS: ALPRAZolam 0.5 MG TAB PO SCH (09:32)
[2020-03-24] MEDS: Furosemide 40 MG TAB PO SCH (09:33)
[2020-03-24] MEDS: HYDROcodone/Acetaminophen 10/325 mg Tablet PO PRN ×2 (10:02→22:19)
[2020-03-24] MEDS: Atorvastatin Calcium 10 MG TAB PO SCH (21:35)
[2020-03-24] MEDS: Nicotine 21 MG PATCH TD SCH (22:20)
[2020-03-25] MEDS: Cyclobenzaprine 10 MG TAB PO PRN ×2 (02:56→16:08)
[2020-03-25] MEDS: HYDROcodone/Acetaminophen 10/325 mg Tablet PO PRN ×3 (05:57→21:14)
[2020-03-25] MEDS: Polyethylene Glycol 3350 17 GM Packet PO SCH (09:05)
[2020-03-25] MEDS: Apixaban 5 MG TAB PO SCH ×2 (09:06→20:52)
[2020-03-25] MEDS: Furosemide 40 MG TAB PO SCH (09:06)
[2020-03-25] MEDS: Ferrous Sulfate 325 MG TAB PO SCH ×2 (09:06→17:15)
[2020-03-25] MEDS: ALPRAZolam 0.5 MG TAB PO SCH (09:06)
[2020-03-25] MEDS: Loratadine 10 MG TAB PO SCH (09:06)
[2020-03-25] MEDS: Atorvastatin Calcium 10 MG TAB PO SCH (20:52)
[2020-03-25] MEDS: Nicotine 21 MG PATCH TD SCH (21:14)
[2020-03-26 05:28] LABS: Hemoglobin 9.7 g/dL (14.0-18.0); Platelet Count 100 thou/uL (130-400)
[2020-03-26] MEDS: HYDROcodone/Acetaminophen 10/325 mg Tablet PO PRN ×3 (06:13→20:54)
[2020-03-26] MEDS: Furosemide 40 MG TAB PO SCH (09:35)
[2020-03-26] MEDS: ALPRAZolam 0.5 MG TAB PO SCH (09:35)
[2020-03-26] MEDS: Apixaban 5 MG TAB PO SCH ×2 (09:35→20:53)
[2020-03-26] MEDS: Loratadine 10 MG TAB PO SCH (09:35)
[2020-03-26] MEDS: Ferrous Sulfate 325 MG TAB PO SCH ×2 (09:36→18:31)
[2020-03-26] MEDS: Polyethylene Glycol 3350 17 GM Packet PO SCH (09:36)
[2020-03-26] MEDS: Atorvastatin Calcium 10 MG TAB PO SCH (20:54)
[2020-03-26] MEDS: Nicotine 21 MG PATCH TD SCH (20:55)
[2020-03-27] MEDS: HYDROcodone/Acetaminophen 10/325 mg Tablet PO PRN ×3 (05:13→20:22)
[2020-03-27] MEDS: Ferrous Sulfate 325 MG TAB PO SCH ×2 (08:11→18:22)
[2020-03-27] MEDS: Polyethylene Glycol 3350 17 GM Packet PO SCH (08:11)
[2020-03-27] MEDS: Loratadine 10 MG TAB PO SCH (08:11)
[2020-03-27] MEDS: Apixaban 5 MG TAB PO SCH ×2 (08:11→20:21)
[2020-03-27] MEDS: Furosemide 40 MG TAB PO SCH (08:11)
[2020-03-27] MEDS: ALPRAZolam 0.5 MG TAB PO SCH (08:11)
[2020-03-27] MEDS: Triple Antibiotic Oint 1 GM Packet TOP PRN (12:49)
[2020-03-27] MEDS: Atorvastatin Calcium 10 MG TAB PO SCH (20:22)
[2020-03-27] MEDS: Nicotine 21 MG PATCH TD SCH (20:31)
[2020-03-28 05:11] LABS: Hemoglobin 10.2 g/dL (14.0-18.0); Platelet Count 114 thou/uL (130-400)
[2020-03-28] MEDS: Polyethylene Glycol 3350 17 GM Packet PO SCH (08:39)
[2020-03-28] MEDS: Furosemide 40 MG TAB PO SCH (08:40)
[2020-03-28] MEDS: Loratadine 10 MG TAB PO SCH (08:40)
[2020-03-28] MEDS: Apixaban 5 MG TAB PO SCH ×2 (08:40→20:34)
[2020-03-28] MEDS: Ferrous Sulfate 325 MG TAB PO SCH ×2 (08:40→17:03)
[2020-03-28] MEDS: ALPRAZolam 0.5 MG TAB PO SCH (08:40)
[2020-03-28] MEDS: HYDROcodone/Acetaminophen 10/325 mg Tablet PO PRN ×2 (11:51→20:34)
[2020-03-28] MEDS: Atorvastatin Calcium 10 MG TAB PO SCH (20:34)
[2020-03-28] MEDS: Nicotine 21 MG PATCH TD SCH (20:35)
[2020-03-28] MEDS: Cyclobenzaprine 10 MG TAB PO PRN (21:12)
[2020-03-29] MEDS: Apixaban 5 MG TAB PO SCH ×2 (08:40→21:12)
[2020-03-29] MEDS: ALPRAZolam 0.5 MG TAB PO SCH (08:40)
[2020-03-29] MEDS: Loratadine 10 MG TAB PO SCH (08:40)
[2020-03-29] MEDS: Furosemide 40 MG TAB PO SCH (08:41)
[2020-03-29] MEDS: Polyethylene Glycol 3350 17 GM Packet PO SCH (08:41)
[2020-03-29] MEDS: Ferrous Sulfate 325 MG TAB PO SCH ×2 (08:44→18:18)
[2020-03-29] MEDS: HYDROcodone/Acetaminophen 10/325 mg Tablet PO PRN ×2 (11:33→21:11)
[2020-03-29] MEDS: Atorvastatin Calcium 10 MG TAB PO SCH (21:12)
[2020-03-29] MEDS: Nicotine 21 MG PATCH TD SCH (21:12)
[2020-03-29] MEDS: Cyclobenzaprine 10 MG TAB PO PRN (21:40)
[2020-03-30 05:26] LABS: Hemoglobin 10.3 g/dL (14.0-18.0); Platelet Count 110 thou/uL (130-400)
[2020-03-30] MEDS: HYDROcodone/Acetaminophen 10/325 mg Tablet PO PRN ×3 (06:09→21:04)
[2020-03-30] MEDS: Cyclobenzaprine 10 MG TAB PO PRN ×2 (06:09→13:26)
[2020-03-30] MEDS: Loratadine 10 MG TAB PO SCH (08:53)
[2020-03-30] MEDS: Apixaban 5 MG TAB PO SCH ×2 (08:54→21:03)
[2020-03-30] MEDS: Furosemide 40 MG TAB PO SCH (08:54)
[2020-03-30] MEDS: Ferrous Sulfate 325 MG TAB PO SCH ×2 (08:55→17:03)
[2020-03-30] MEDS: ALPRAZolam 0.5 MG TAB PO SCH (08:55)
[2020-03-30] MEDS: Polyethylene Glycol 3350 17 GM Packet PO SCH (08:56)
[2020-03-30] MEDS: Atorvastatin Calcium 10 MG TAB PO SCH (21:03)
[2020-03-30] MEDS: Nicotine 21 MG PATCH TD SCH (21:03)
[2020-03-31] MEDS: HYDROcodone/Acetaminophen 10/325 mg Tablet PO PRN ×3 (05:48→21:59)
[2020-03-31] MEDS: Cyclobenzaprine 10 MG TAB PO PRN ×3 (05:48→21:59)
[2020-03-31] MEDS: Polyethylene Glycol 3350 17 GM Packet PO SCH (09:03)
[2020-03-31] MEDS: ALPRAZolam 0.5 MG TAB PO SCH (09:03)
[2020-03-31] MEDS: Furosemide 40 MG TAB PO SCH (09:03)
[2020-03-31] MEDS: Loratadine 10 MG TAB PO SCH (09:03)
[2020-03-31] MEDS: Apixaban 5 MG TAB PO SCH ×2 (09:03→20:51)
[2020-03-31] MEDS: Ferrous Sulfate 325 MG TAB PO SCH ×2 (09:04→19:05)
[2020-03-31] MEDS: Atorvastatin Calcium 10 MG TAB PO SCH (20:51)
[2020-03-31] MEDS: Nicotine 21 MG PATCH TD SCH (20:51)
[2020-04-01 05:36] LABS: Platelet Count 98 thou/uL (130-400)
[2020-04-01] MEDS: ALPRAZolam 0.5 MG TAB PO SCH (08:40)
[2020-04-01] MEDS: Ferrous Sulfate 325 MG TAB PO SCH ×2 (08:40→17:53)
[2020-04-01] MEDS: Apixaban 5 MG TAB PO SCH ×2 (08:40→19:50)
[2020-04-01] MEDS: Polyethylene Glycol 3350 17 GM Packet PO SCH (08:40)
[2020-04-01] MEDS: Furosemide 40 MG TAB PO SCH (08:41)
[2020-04-01] MEDS: Loratadine 10 MG TAB PO SCH (08:41)
[2020-04-01] MEDS: Cyclobenzaprine 10 MG TAB PO PRN ×2 (10:38→19:50)
[2020-04-01] MEDS: HYDROcodone/Acetaminophen 10/325 mg Tablet PO PRN ×2 (10:38→21:44)
[2020-04-01] MEDS: Atorvastatin Calcium 10 MG TAB PO SCH (19:51)
[2020-04-01] MEDS: Nicotine 21 MG PATCH TD SCH (19:55)
[2020-04-02 05:36] VITALS: BP 138/74; TEMP 98.6
[2020-04-02] MEDS: ALPRAZolam 0.5 MG TAB PO SCH (08:55)
[2020-04-02] MEDS: Ferrous Sulfate 325 MG TAB PO SCH (08:55)
[2020-04-02] MEDS: Loratadine 10 MG TAB PO SCH (08:56)
[2020-04-02] MEDS: Furosemide 40 MG TAB PO SCH (08:56)
[2020-04-02] MEDS: Apixaban 5 MG TAB PO SCH (08:56)
[2020-04-02] MEDS: HYDROcodone/Acetaminophen 10/325 mg Tablet PO PRN (09:00)
[2020-04-02] MEDS: Cyclobenzaprine 10 MG TAB PO PRN (09:00)
[2020-04-02] MEDS: Polyethylene Glycol 3350 17 GM Packet PO SCH (09:03)
--- NOTE | 2020-04-04 08:21 | DIS ---
DATE OF ADMISSION: 02/24/2020 DATE OF DISCHARGE: 04/02/2020 ADMISSION DIAGNOSES: Gangrene of left foot, status post left ljwlv-hal-diep amputation; peripheral vascular disease; history of right dgbjq-jvj-ofdx amputation; hypertension; and dyslipidemia. SECONDARY DIAGNOSES: Acute on chronic anemia, chronic kidney disease stage 3, and anxiety. PROCEDURES: None. HOSPITAL COURSE: This is a 69-year-old male, who presented to our nursing home facility status post admission at [facility] in [place]. The patient has a history significant for peripheral vascular disease with noted prior right-sided gonnq-flx-zsqn amputation. At the hospital in [place], he was noted to have significant necrosis of his left toes and feet, which prompted his General Surgery consultation. The patient subsequently underwent a left scohh-uyn-vzzs amputation on 02/22/[address] Dee. Due to his inability to discharge home and need for skilled therapy including wound care and PT/OT, he was transitioned to our nursing home facility at [facility]. While at our facility, he was able to improve in regard to his functional status. He received routine wound care and did have subsequent followup with Dr. Dee during his stay; followup visit with Dr. Dee was reassuring with no further need for surgical intervention. We were able to contact his prosthesis company in regard to his right lower extremity and this was delivered to be used during his stay at our facility. He had no significant setbacks during his stay. There was a question as to where he would discharge from our facility as local nursing homes could not accept him as a lateral transfer of care. Thus, there was discussion with the patient's family members, who live nearby locally to the patient, who have agreed to further aid in care of the patient and transitioning him back to his home in conjunction with [facility]. At this time, the patient is appropriate for discharge as he has maximized his potential at our facility. DISPOSITION: The patient will discharge to his home, where he lives in [place] with family members nearby. He may follow up with his primary care provider, Uma Maya in 1 week. He may further follow up with Dr. Dee as advised. DISCHARGE MEDICATIONS: Include, 1. Alprazolam 0.5 mg daily. 2. Eliquis 5 mg b.i.d. 3. Pravastatin 40 mg at bedtime. 4. Cyclobenzaprine 10 mg q.8 hours p.r.n. 5. Lasix 40 mg daily. 6. Metoprolol succinate 25 mg daily. 7. Pantoprazole 40 mg daily. 8. Seroquel 25 mg at bedtime. Total time spent in preparation of discharge of this patient, greater than 30 minutes. Job ID: [id number] [facility]
== END 2020-04-02 12:40 | disposition home or self-care (01) | DRG 561 ==
LOC: BURMED 16:46
PROVIDERS: ADMIT Family Medicine; ATTEND Family Medicine
DX: Z47.81 Encounter for orthopedic aftercare following surgical amputation (principal); Z89.512 Acquired absence of left leg below knee; E78.5 Hyperlipidemia, unspecified; D50.9 Iron deficiency anemia, unspecified; N18.30 Chronic kidney disease, stage 3 unspecified; I12.9 Hypertensive chronic kidney disease with stage 1 through stage 4 chronic kidney disease, or unspecified chronic kidney disease; I73.9 Peripheral vascular disease, unspecified; Z89.611 Acquired absence of right leg above knee; T87.81 Dehiscence of amputation stump; Y83.9 Surgical procedure, unspecified as the cause of abnormal reaction of the patient, or of later complication, without mention of misadventure at the time of the procedure; J30.2 Other seasonal allergic rhinitis; I25.10 Atherosclerotic heart disease of native coronary artery without angina pectoris; Z86.711 Personal history of pulmonary embolism; Z79.01 Long term (current) use of anticoagulants; Z95.828 Presence of other vascular implants and grafts; Z79.899 Other long term (current) drug therapy; Z82.49 Family history of ischemic heart disease and other diseases of the circulatory system; F17.210 Nicotine dependence, cigarettes, uncomplicated
CPT/HCPCS: 36415; 36416; 80053; 82565; 85014; 85018; 85025; 85049; 86140; J7512

== ENCOUNTER 2020-05-21 14:54 | Emergency (ER) | payer MEDICARE ==
[2020-05-21 15:54] LABS: #Basophils 0.1 thou/uL (0.0-0.2); #Eosinphils 0.3 thou/uL (0.0-0.7); #Lymphocytes 1.1 thou/uL (1.20-3.40); #Monocytes 0.5 thou/uL (0.11-0.59); #Neutrophils 8.6 thou/uL (1.40-6.50); %Basophils 0.5 % (0.0-1.0); %Eosinophils 2.5 % (0.0-10.0); %Lymphocytes 10.2 % (21.0-51.0); %Monocytes 4.4 % (0.0-10.0); %Neutrophils 82.4 % (42.0-75.0); Hemoglobin 8.5 g/dL (14.0-18.0); Mean Corpuscular HGB CONC 29.9 g/dL (32.0-36.0); Mean Corpuscular Hemoglobin 23.5 pg (27.0-31.0); Mean Corpuscular Volume 78.5 fL (78.0-98.0); Mean Platelet Volume 6.8 fL (7.4-10.4); Platelet Count 278 thou/uL (130-400); RBC Distribution Width 16.5 % (11.5-14.5); Red Blood Cell (RBC) Count 3.62 mill/uL (4.70-6.10); White Blood Cell (WBC) Count 10.4 thou/uL (4.8-10.8)
[2020-05-21 16:06] LABS: MDiff Complete? YES
[2020-05-21] MEDS ORDERED: Cefepime 2 GM VIAL ONE (16:06)
[2020-05-21] MEDS ORDERED: Sodium Chloride 0.9% 100 ML ONE (16:06)
[2020-05-21 16:11] LABS: ALT (SGPT) 13 U/L (8-55); AST (SGOT) 13 U/L (5-34); Albumin 2.8 g/dL (3.4-4.8); Alkaline Phosphatase 91 U/L (40-110); Anion Gap 17 mmol/L (10-20); BUN (Urea Nitrogen) 15 mg/dL (8.4-25.7); Bilirubin, Total 0.4 mg/dL (0.2-1.2); Calc. Creatinine Clearance 0 mL/min (70-130); Calcium 8.7 mg/dL (7.8-10.44); Carbon Dioxide 21 mmol/L (23-31); Chloride 105 mmol/L (98-107); Globulin 5.2 g/dL (2.4-3.5); Glucose 96 mg/dL (80-115); Potassium 3.8 mmol/L (3.5-5.1); Sodium 139 mmol/L (136-145)
== END 2020-05-21 17:50 | disposition short-term general hospital (02) ==
LOC: BURERS 14:54
DX: L03.116 Cellulitis of left lower limb (principal); D64.9 Anemia, unspecified; I11.0 Hypertensive heart disease with heart failure; I50.9 Heart failure, unspecified; E78.5 Hyperlipidemia, unspecified; Z79.899 Other long term (current) drug therapy
CPT/HCPCS: 36415; 80053; 83605; 85025; 87040; 96374; 96375; J0692; J3370; J3490

== ENCOUNTER 2020-05-30 15:52 | Inpatient (IN) | payer MEDICARE, MEDICAID ==
[2020-05-30] MEDS ORDERED: Non-Formulary Item 1 EACH (Ertapenem 1 GM Vial) IVPB SCH (21:15)
[2020-05-30] MEDS ORDERED: Apixaban 5 MG TAB PO SCH (21:45)
[2020-05-30] MEDS ORDERED: Atorvastatin Calcium 10 MG TAB PO SCH (21:45)
[2020-05-30] MEDS: traMADol HCl 50 MG TAB PO PRN (21:50)
[2020-05-30] MEDS: Cyclobenzaprine 10 MG TAB PO PRN (21:50)
[2020-05-30] MEDS: Vancomycin HCl 750 MG in Sodium Chloride 0.9% 250 ML 250 ML IVPB SCH (21:50)
[2020-05-30] MEDS ORDERED: HYDROcodone/Acetaminophen 5/325 mg Tablet PO PRN (22:16)
[2020-05-31] MEDS ORDERED: Calcium Carbonate 500 MG ChewTAB PO PRN (08:04)
[2020-05-31] MEDS ORDERED: Bisacodyl 5 MG TAB PO PRN (08:04)
[2020-05-31] MEDS ORDERED: Ondansetron ODT 4 MG TAB PO PRN (08:04)
[2020-05-31] MEDS ORDERED: Morphine 4 MG/ML VIAL SLOW IVP SCH (08:30)
[2020-05-31] MEDS ORDERED: FLU VACC QS2020-21(65YR UP)/PF 240 MCG/0.7 ML SYRINGE IM ONE (09:00)
[2020-05-31] MEDS: Ertapenem 1 GM in Sodium Chloride 0.9% 100 ML IVPB SCH ×2 (11:10→13:32)
[2020-05-31] MEDS: Famotidine 20 MG TAB PO SCH ×2 (11:11→21:42)
[2020-05-31] MEDS: Furosemide 20 MG TAB PO SCH (11:11)
[2020-05-31] MEDS: Apixaban 5 MG TAB PO SCH ×2 (11:15→21:43)
[2020-05-31] MEDS: Vancomycin HCl 750 MG in Sodium Chloride 0.9% 250 ML 250 ML IVPB SCH ×2 (11:18→21:42)
[2020-05-31] MEDS: Nicotine 14 MG PATCH TD SCH (13:39)
[2020-05-31] MEDS: HYDROcodone/Acetaminophen 5/325 mg Tablet PO PRN (17:59)
[2020-05-31] MEDS: Cyclobenzaprine 10 MG TAB PO PRN (21:42)
[2020-05-31] MEDS: Atorvastatin Calcium 10 MG TAB PO SCH (21:43)
[2020-06-01] MEDS: Meropenem 1 GM in Sodium Chloride 0.9% 100 ML IVPB SCH ×3 (05:26→20:42)
[2020-06-01 09:41] LABS: Vancomycin, Trough 22.5 ug/mL
[2020-06-01] MEDS: Famotidine 20 MG TAB PO SCH ×2 (09:41→20:39)
[2020-06-01] MEDS: Apixaban 5 MG TAB PO SCH ×2 (09:41→20:39)
[2020-06-01] MEDS: Furosemide 20 MG TAB PO SCH (09:42)
[2020-06-01] MEDS: Vancomycin HCl 750 MG in Sodium Chloride 0.9% 250 ML 250 ML IVPB SCH (09:42)
[2020-06-01] MEDS: Nicotine 14 MG PATCH TD SCH (09:47)
[2020-06-01] MEDS: HYDROcodone/Acetaminophen 5/325 mg Tablet PO PRN (10:18)
[2020-06-01] MEDS: traMADol HCl 50 MG TAB PO PRN (13:41)
[2020-06-01] MEDS: Acetaminophen 325 MG TAB PO PRN (13:47)
[2020-06-01] MEDS: Cyclobenzaprine 10 MG TAB PO PRN (20:39)
[2020-06-01] MEDS: Atorvastatin Calcium 10 MG TAB PO SCH (20:39)
[2020-06-02] MEDS: HYDROcodone/Acetaminophen 5/325 mg Tablet PO PRN (02:07)
[2020-06-02 05:59] LABS: Hemoglobin 9.3 g/dL (14.0-18.0); Platelet Count 114 thou/uL (130-400)
[2020-06-02] MEDS: Meropenem 1 GM in Sodium Chloride 0.9% 100 ML IVPB SCH ×3 (05:59→21:46)
[2020-06-02] MEDS: Famotidine 20 MG TAB PO SCH ×2 (09:08→21:46)
[2020-06-02] MEDS: Apixaban 5 MG TAB PO SCH ×2 (09:09→21:46)
[2020-06-02] MEDS: Nicotine 14 MG PATCH TD SCH (09:09)
[2020-06-02] MEDS: Furosemide 20 MG TAB PO SCH (09:09)
[2020-06-02] MEDS: Vancomycin HCl 750 MG in Sodium Chloride 0.9% 250 ML 250 ML IVPB SCH (09:09)
[2020-06-02] MEDS: Vancomycin HCl 500 MG in Sodium Chloride 0.9% 100 ML IVPB SCH (09:10)
[2020-06-02] MEDS: Atorvastatin Calcium 10 MG TAB PO SCH (21:46)
[2020-06-02] MEDS: Cyclobenzaprine 10 MG TAB PO PRN (23:24)
[2020-06-03] MEDS: Meropenem 1 GM in Sodium Chloride 0.9% 100 ML IVPB SCH ×3 (05:42→21:20)
[2020-06-03] MEDS: Vancomycin HCl 500 MG in Sodium Chloride 0.9% 100 ML IVPB SCH (08:33)
[2020-06-03] MEDS: Famotidine 20 MG TAB PO SCH ×2 (08:34→21:18)
[2020-06-03] MEDS: Furosemide 20 MG TAB PO SCH (08:34)
[2020-06-03] MEDS: Vancomycin HCl 750 MG in Sodium Chloride 0.9% 250 ML 250 ML IVPB SCH (08:34)
[2020-06-03] MEDS: Nicotine 14 MG PATCH TD SCH (08:35)
[2020-06-03] MEDS: Apixaban 5 MG TAB PO SCH ×2 (08:35→21:17)
[2020-06-03] MEDS: HYDROcodone/Acetaminophen 5/325 mg Tablet PO PRN ×3 (09:15→21:18)
[2020-06-03] MEDS: Cyclobenzaprine 10 MG TAB PO PRN (15:07)
[2020-06-03] MEDS: Atorvastatin Calcium 10 MG TAB PO SCH (21:17)
[2020-06-04] MEDS: HYDROcodone/Acetaminophen 5/325 mg Tablet PO PRN ×3 (02:48→21:04)
[2020-06-04] MEDS: Cyclobenzaprine 10 MG TAB PO PRN ×2 (02:50→21:04)
[2020-06-04] MEDS: Meropenem 1 GM in Sodium Chloride 0.9% 100 ML IVPB SCH ×3 (05:59→21:05)
[2020-06-04 08:15] LABS: Vancomycin, Trough 16.4 ug/mL
[2020-06-04] MEDS: Famotidine 20 MG TAB PO SCH ×2 (09:20→20:44)
[2020-06-04] MEDS: Vancomycin HCl 500 MG in Sodium Chloride 0.9% 100 ML IVPB SCH (09:20)
[2020-06-04] MEDS: Vancomycin HCl 750 MG in Sodium Chloride 0.9% 250 ML 250 ML IVPB SCH (09:20)
[2020-06-04] MEDS: Furosemide 20 MG TAB PO SCH (09:21)
[2020-06-04] MEDS: Apixaban 5 MG TAB PO SCH ×2 (09:21→20:44)
[2020-06-04] MEDS: Nicotine 14 MG PATCH TD SCH (09:52)
[2020-06-04] MEDS: Atorvastatin Calcium 10 MG TAB PO SCH (20:45)
[2020-06-05] MEDS: Meropenem 1 GM in Sodium Chloride 0.9% 100 ML IVPB SCH ×3 (05:50→21:23)
[2020-06-05 06:22] LABS: Hemoglobin 10.4 g/dL (14.0-18.0); Platelet Count 142 thou/uL (130-400)
[2020-06-05] MEDS: Famotidine 20 MG TAB PO SCH ×2 (08:15→20:25)
[2020-06-05] MEDS: Apixaban 5 MG TAB PO SCH ×2 (08:15→20:25)
[2020-06-05] MEDS: Furosemide 20 MG TAB PO SCH (08:15)
[2020-06-05] MEDS: HYDROcodone/Acetaminophen 5/325 mg Tablet PO PRN ×2 (08:20→20:24)
[2020-06-05] MEDS: Vancomycin HCl 750 MG in Sodium Chloride 0.9% 250 ML 250 ML IVPB SCH (08:23)
[2020-06-05] MEDS: Nicotine 14 MG PATCH TD SCH (08:25)
[2020-06-05] MEDS: Vancomycin HCl 500 MG in Sodium Chloride 0.9% 100 ML IVPB SCH (09:36)
[2020-06-05] MEDS: Cyclobenzaprine 10 MG TAB PO PRN (18:42)
[2020-06-05] MEDS: Atorvastatin Calcium 10 MG TAB PO SCH (20:25)
[2020-06-06] MEDS: Meropenem 1 GM in Sodium Chloride 0.9% 100 ML IVPB SCH ×3 (05:20→21:19)
[2020-06-06 06:22] LABS: ALT (SGPT) 40 U/L (8-55); AST (SGOT) 31 U/L (5-34); Albumin 2.8 g/dL (3.4-4.8); Alkaline Phosphatase 101 U/L (40-110); Anion Gap 11 mmol/L (10-20); BUN (Urea Nitrogen) 19 mg/dL (8.4-25.7); Bilirubin, Total 0.3 mg/dL (0.2-1.2); CRP (Inflammatory) 1.37 mg/dL (= or < 0.5); Calc. Creatinine Clearance 82 mL/min (70-130); Calcium 8.4 mg/dL (7.8-10.44); Carbon Dioxide 29 mmol/L (23-31); Chloride 103 mmol/L (98-107); Globulin 4.8 g/dL (2.4-3.5); Glucose 98 mg/dL (80-115); Potassium 4.2 mmol/L (3.5-5.1); Protein, Total 7.6 g/dL (5.8-8.1); Sodium 139 mmol/L (136-145)
[2020-06-06 06:46] LABS: #Eosinphils 0.4 thou/uL (0.0-0.7); #Lymphocytes 1.6 thou/uL (1.20-3.40); #Monocytes 0.5 thou/uL (0.11-0.59); #Neutrophils 3.5 thou/uL (1.40-6.50); %Basophils 0.8 % (0.0-1.0); %Eosinophils 6.3 % (0.0-10.0); %Lymphocytes 26.3 % (21.0-51.0); %Monocytes 8.2 % (0.0-10.0); %Neutrophils 58.4 % (42.0-75.0); Anisocytosis SLIGHT = 6-15 cells (100X) (0-5/hpf); Hemoglobin 10.4 g/dL (14.0-18.0); MDiff Complete? YES; Mean Corpuscular HGB CONC 30.4 g/dL (32.0-36.0); Mean Corpuscular Volume 82.3 fL (78.0-98.0); Mean Platelet Volume 9.3 fL (7.4-10.4); Platelet Count 143 thou/uL (130-400); Platelet Morphology Comment Appears Adequate; RBC Distribution Width 18.7 % (11.5-14.5); Red Blood Cell (RBC) Count 4.18 mill/uL (4.70-6.10)
[2020-06-06] MEDS: HYDROcodone/Acetaminophen 5/325 mg Tablet PO PRN ×2 (08:23→21:22)
[2020-06-06] MEDS: Vancomycin HCl 500 MG in Sodium Chloride 0.9% 100 ML IVPB SCH (08:25)
[2020-06-06] MEDS: Vancomycin HCl 750 MG in Sodium Chloride 0.9% 250 ML 250 ML IVPB SCH (08:25)
[2020-06-06] MEDS: Nicotine 14 MG PATCH TD SCH (08:26)
[2020-06-06] MEDS: Famotidine 20 MG TAB PO SCH ×2 (08:26→21:18)
[2020-06-06] MEDS: Furosemide 20 MG TAB PO SCH (08:26)
[2020-06-06] MEDS: Apixaban 5 MG TAB PO SCH ×2 (08:26→21:18)
[2020-06-06] MEDS ORDERED: Morphine 2 MG/ML VIAL ONE (14:29)
[2020-06-06] MEDS: Morphine 2 MG/ML VIAL SLOW IVP PRN (14:40)
[2020-06-06] MEDS: Atorvastatin Calcium 10 MG TAB PO SCH (21:18)
[2020-06-07] MEDS: Meropenem 1 GM in Sodium Chloride 0.9% 100 ML IVPB SCH ×3 (05:05→20:27)
[2020-06-07] MEDS: Famotidine 20 MG TAB PO SCH ×2 (09:56→20:27)
[2020-06-07] MEDS: Nicotine 14 MG PATCH TD SCH (09:56)
[2020-06-07] MEDS: Furosemide 20 MG TAB PO SCH (09:56)
[2020-06-07] MEDS: Apixaban 5 MG TAB PO SCH ×2 (09:56→20:27)
[2020-06-07] MEDS: Vancomycin HCl 750 MG in Sodium Chloride 0.9% 250 ML 250 ML IVPB SCH (09:57)
[2020-06-07] MEDS: Vancomycin HCl 500 MG in Sodium Chloride 0.9% 100 ML IVPB SCH (10:02)
[2020-06-07] MEDS: HYDROcodone/Acetaminophen 5/325 mg Tablet PO PRN (13:49)
[2020-06-07] MEDS: Atorvastatin Calcium 10 MG TAB PO SCH (20:27)
[2020-06-08] MEDS: HYDROcodone/Acetaminophen 5/325 mg Tablet PO PRN ×4 (01:18→21:11)
[2020-06-08] MEDS: Meropenem 1 GM in Sodium Chloride 0.9% 100 ML IVPB SCH ×3 (05:11→21:35)
[2020-06-08 05:21] LABS: Hemoglobin 10.6 g/dL (14.0-18.0); Platelet Count 137 thou/uL (130-400)
[2020-06-08] MEDS: Apixaban 5 MG TAB PO SCH ×2 (09:10→21:34)
[2020-06-08] MEDS: Famotidine 20 MG TAB PO SCH ×2 (09:10→21:34)
[2020-06-08] MEDS: Furosemide 20 MG TAB PO SCH (09:10)
[2020-06-08] MEDS: Vancomycin HCl 750 MG in Sodium Chloride 0.9% 250 ML 250 ML IVPB SCH (09:11)
[2020-06-08] MEDS: Vancomycin HCl 500 MG in Sodium Chloride 0.9% 100 ML IVPB SCH (09:24)
[2020-06-08] MEDS: Nicotine 14 MG PATCH TD SCH (11:15)
[2020-06-08] MEDS ORDERED: Morphine 2 MG/ML VIAL ONE (13:40)
[2020-06-08] MEDS: Morphine 2 MG/ML VIAL SLOW IVP PRN (13:43)
[2020-06-08] MEDS: Atorvastatin Calcium 10 MG TAB PO SCH (21:34)
[2020-06-09] MEDS: Meropenem 1 GM in Sodium Chloride 0.9% 100 ML IVPB SCH ×3 (05:55→21:04)
[2020-06-09] MEDS: HYDROcodone/Acetaminophen 5/325 mg Tablet PO PRN ×2 (09:11→20:34)
[2020-06-09] MEDS: Famotidine 20 MG TAB PO SCH ×2 (09:12→20:36)
[2020-06-09] MEDS: Apixaban 5 MG TAB PO SCH ×2 (09:12→20:33)
[2020-06-09] MEDS: Furosemide 20 MG TAB PO SCH (09:12)
[2020-06-09] MEDS: Nicotine 14 MG PATCH TD SCH (09:13)
[2020-06-09] MEDS: Vancomycin HCl 500 MG in Sodium Chloride 0.9% 100 ML IVPB SCH (10:08)
[2020-06-09] MEDS: Vancomycin HCl 750 MG in Sodium Chloride 0.9% 250 ML 250 ML IVPB SCH (10:08)
[2020-06-09] MEDS: Atorvastatin Calcium 10 MG TAB PO SCH (20:33)
[2020-06-09] MEDS: Cyclobenzaprine 10 MG TAB PO PRN (20:34)
[2020-06-10] MEDS: Meropenem 1 GM in Sodium Chloride 0.9% 100 ML IVPB SCH ×3 (05:18→21:27)
[2020-06-10] MEDS ORDERED: Morphine 10 MG/ML VIAL ONE (09:35)
[2020-06-10] MEDS: Morphine 2 MG/ML VIAL SLOW IVP PRN (09:53)
[2020-06-10] MEDS: Famotidine 20 MG TAB PO SCH ×2 (09:56→21:27)
[2020-06-10] MEDS: Furosemide 20 MG TAB PO SCH (09:56)
[2020-06-10] MEDS: Apixaban 5 MG TAB PO SCH ×2 (09:56→21:26)
[2020-06-10] MEDS: Nicotine 14 MG PATCH TD SCH (09:57)
[2020-06-10] MEDS: Vancomycin HCl 750 MG in Sodium Chloride 0.9% 250 ML 250 ML IVPB SCH (09:58)
[2020-06-10] MEDS: Vancomycin HCl 500 MG in Sodium Chloride 0.9% 100 ML IVPB SCH (09:58)
[2020-06-10] MEDS: HYDROcodone/Acetaminophen 5/325 mg Tablet PO PRN ×2 (12:21→21:26)
[2020-06-10] MEDS: Cyclobenzaprine 10 MG TAB PO PRN (21:26)
[2020-06-10] MEDS: Atorvastatin Calcium 10 MG TAB PO SCH (21:27)
[2020-06-11] MEDS: Meropenem 1 GM in Sodium Chloride 0.9% 100 ML IVPB SCH ×3 (05:28→21:15)
[2020-06-11] MEDS: Vancomycin HCl 750 MG in Sodium Chloride 0.9% 250 ML 250 ML IVPB SCH (08:46)
[2020-06-11] MEDS: Famotidine 20 MG TAB PO SCH ×2 (08:47→20:06)
[2020-06-11] MEDS: Furosemide 20 MG TAB PO SCH (08:47)
[2020-06-11] MEDS: Vancomycin HCl 500 MG in Sodium Chloride 0.9% 100 ML IVPB SCH (08:47)
[2020-06-11] MEDS: Apixaban 5 MG TAB PO SCH ×2 (08:48→20:06)
[2020-06-11] MEDS: Nicotine 14 MG PATCH TD SCH (08:48)
[2020-06-11] MEDS: HYDROcodone/Acetaminophen 5/325 mg Tablet PO PRN (14:25)
[2020-06-11] MEDS: Atorvastatin Calcium 10 MG TAB PO SCH (20:06)
[2020-06-12] MEDS: HYDROcodone/Acetaminophen 5/325 mg Tablet PO PRN (00:41)
[2020-06-12] MEDS: Benzonatate 100 MG CAP PO PRN (00:42)
[2020-06-12] MEDS: Meropenem 1 GM in Sodium Chloride 0.9% 100 ML IVPB SCH ×3 (05:44→21:42)
[2020-06-12] MEDS: Furosemide 20 MG TAB PO SCH (09:02)
[2020-06-12] MEDS: Famotidine 20 MG TAB PO SCH ×2 (09:02→21:42)
[2020-06-12] MEDS: Apixaban 5 MG TAB PO SCH ×2 (09:02→21:42)
[2020-06-12] MEDS: Vancomycin HCl 750 MG in Sodium Chloride 0.9% 250 ML 250 ML IVPB SCH (09:03)
[2020-06-12] MEDS: Nicotine 14 MG PATCH TD SCH (09:03)
[2020-06-12] MEDS: Vancomycin HCl 500 MG in Sodium Chloride 0.9% 100 ML IVPB SCH (09:04)
[2020-06-12] MEDS: Atorvastatin Calcium 10 MG TAB PO SCH (21:42)
[2020-06-13] MEDS: Benzonatate 100 MG CAP PO PRN ×2 (00:31→21:50)
[2020-06-13] MEDS: Meropenem 1 GM in Sodium Chloride 0.9% 100 ML IVPB SCH ×3 (05:12→20:58)
[2020-06-13 05:21] LABS: ALT (SGPT) 33 U/L (8-55); AST (SGOT) 23 U/L (5-34); Albumin 2.8 g/dL (3.4-4.8); Alkaline Phosphatase 109 U/L (40-110); Anion Gap 14 mmol/L (10-20); BUN (Urea Nitrogen) 25 mg/dL (8.4-25.7); Bilirubin, Total 0.3 mg/dL (0.2-1.2); Calc. Creatinine Clearance 90 mL/min (70-130); Calcium 8.3 mg/dL (7.8-10.44); Carbon Dioxide 24 mmol/L (23-31); Chloride 107 mmol/L (98-107); Globulin 4.1 g/dL (2.4-3.5); Glucose 101 mg/dL (80-115); Potassium 3.6 mmol/L (3.5-5.1); Protein, Total 6.9 g/dL (5.8-8.1); Sodium 141 mmol/L (136-145)
[2020-06-13 05:45] LABS: #Basophils 0.1 thou/uL (0.0-0.2); #Eosinphils 0.6 thou/uL (0.0-0.7); #Lymphocytes 1.8 thou/uL (1.20-3.40); #Monocytes 0.5 thou/uL (0.11-0.59); #Neutrophils 3.2 thou/uL (1.40-6.50); %Basophils 1.3 % (0.0-1.0); %Eosinophils 9.7 % (0.0-10.0); %Lymphocytes 28.9 % (21.0-51.0); %Monocytes 8.4 % (0.0-10.0); %Neutrophils 51.6 % (42.0-75.0); Anisocytosis SLIGHT = 6-15 cells (100X) (0-5/hpf); Hemoglobin 10.6 g/dL (14.0-18.0); MDiff Complete? YES; Mean Corpuscular HGB CONC 30.9 g/dL (32.0-36.0); Mean Corpuscular Hemoglobin 25.3 pg (27.0-31.0); Mean Corpuscular Volume 81.8 fL (78.0-98.0); Mean Platelet Volume 9.1 fL (7.4-10.4); Platelet Count 93 thou/uL (130-400); Platelet Morphology Comment Appears Decreased; RBC Distribution Width 18.4 % (11.5-14.5); Red Blood Cell (RBC) Count 4.18 mill/uL (4.70-6.10); White Blood Cell (WBC) Count 6.2 thou/uL (4.8-10.8)
[2020-06-13] MEDS: Famotidine 20 MG TAB PO SCH ×2 (08:02→20:57)
[2020-06-13] MEDS: Apixaban 5 MG TAB PO SCH ×2 (08:03→20:58)
[2020-06-13] MEDS: Nicotine 14 MG PATCH TD SCH (08:03)
[2020-06-13] MEDS: Furosemide 20 MG TAB PO SCH (08:03)
[2020-06-13 08:53] LABS: Vancomycin, Trough 16.2 ug/mL
[2020-06-13] MEDS: Vancomycin HCl 500 MG in Sodium Chloride 0.9% 100 ML IVPB SCH (09:02)
[2020-06-13] MEDS: Vancomycin HCl 750 MG in Sodium Chloride 0.9% 250 ML 250 ML IVPB SCH (09:02)
[2020-06-13] MEDS: HYDROcodone/Acetaminophen 5/325 mg Tablet PO PRN ×2 (09:54→16:18)
[2020-06-13] MEDS ORDERED: Morphine 2 MG/ML VIAL ONE (13:58)
[2020-06-13] MEDS: Morphine 2 MG/ML VIAL SLOW IVP PRN (14:19)
[2020-06-13] MEDS: Atorvastatin Calcium 10 MG TAB PO SCH (20:57)
[2020-06-14] MEDS: Meropenem 1 GM in Sodium Chloride 0.9% 100 ML IVPB SCH ×3 (05:14→20:26)
[2020-06-14] MEDS: Apixaban 5 MG TAB PO SCH ×2 (08:51→20:25)
[2020-06-14] MEDS: Famotidine 20 MG TAB PO SCH ×2 (08:51→20:25)
[2020-06-14] MEDS: Nicotine 14 MG PATCH TD SCH (08:51)
[2020-06-14] MEDS: Furosemide 20 MG TAB PO SCH (08:51)
[2020-06-14] MEDS: Vancomycin HCl 750 MG in Sodium Chloride 0.9% 250 ML 250 ML IVPB SCH (08:52)
[2020-06-14] MEDS: Vancomycin HCl 500 MG in Sodium Chloride 0.9% 100 ML IVPB SCH (08:55)
[2020-06-14] MEDS: HYDROcodone/Acetaminophen 5/325 mg Tablet PO PRN (10:15)
[2020-06-14] MEDS: Atorvastatin Calcium 10 MG TAB PO SCH (20:25)
[2020-06-15] MEDS: Cyclobenzaprine 10 MG TAB PO PRN ×2 (00:08→20:23)
[2020-06-15] MEDS: Meropenem 1 GM in Sodium Chloride 0.9% 100 ML IVPB SCH ×3 (05:25→20:24)
[2020-06-15] MEDS: Vancomycin HCl 500 MG in Sodium Chloride 0.9% 100 ML IVPB SCH (09:10)
[2020-06-15] MEDS: Vancomycin HCl 750 MG in Sodium Chloride 0.9% 250 ML 250 ML IVPB SCH (09:10)
[2020-06-15] MEDS: Furosemide 20 MG TAB PO SCH (09:11)
[2020-06-15] MEDS: Famotidine 20 MG TAB PO SCH ×2 (09:11→20:23)
[2020-06-15] MEDS: Nicotine 14 MG PATCH TD SCH (09:12)
[2020-06-15] MEDS: Apixaban 5 MG TAB PO SCH ×2 (09:12→20:23)
[2020-06-15] MEDS ORDERED: Morphine 2 MG/ML VIAL ONE (14:03)
[2020-06-15] MEDS: Morphine 2 MG/ML VIAL SLOW IVP PRN (14:13)
[2020-06-15] MEDS: Benzonatate 100 MG CAP PO PRN (14:13)
[2020-06-15] MEDS: HYDROcodone/Acetaminophen 5/325 mg Tablet PO PRN ×2 (16:23→20:23)
[2020-06-15] MEDS: Atorvastatin Calcium 10 MG TAB PO SCH (20:23)
[2020-06-16] MEDS: Meropenem 1 GM in Sodium Chloride 0.9% 100 ML IVPB SCH ×3 (05:11→21:12)
[2020-06-16] MEDS: Apixaban 5 MG TAB PO SCH ×2 (09:03→21:11)
[2020-06-16] MEDS: Furosemide 20 MG TAB PO SCH (09:03)
[2020-06-16] MEDS: Famotidine 20 MG TAB PO SCH ×2 (09:03→21:11)
[2020-06-16] MEDS: Vancomycin HCl 500 MG in Sodium Chloride 0.9% 100 ML IVPB SCH (09:04)
[2020-06-16] MEDS: Vancomycin HCl 750 MG in Sodium Chloride 0.9% 250 ML 250 ML IVPB SCH (09:07)
[2020-06-16] MEDS: Nicotine 14 MG PATCH TD SCH (10:28)
[2020-06-16] MEDS: Benzonatate 100 MG CAP PO PRN (13:57)
[2020-06-16] MEDS: Acetaminophen 325 MG TAB PO PRN (13:57)
[2020-06-16] MEDS ORDERED: Morphine 2 MG/ML VIAL ONE (14:38)
[2020-06-16] MEDS: Morphine 2 MG/ML VIAL SLOW IVP PRN (14:43)
[2020-06-16] MEDS: Atorvastatin Calcium 10 MG TAB PO SCH (21:11)
[2020-06-16] MEDS: HYDROcodone/Acetaminophen 5/325 mg Tablet PO PRN (21:21)
[2020-06-17] MEDS: Meropenem 1 GM in Sodium Chloride 0.9% 100 ML IVPB SCH ×3 (05:14→21:14)
[2020-06-17] MEDS: Apixaban 5 MG TAB PO SCH ×2 (08:50→21:14)
[2020-06-17] MEDS: Famotidine 20 MG TAB PO SCH ×2 (08:50→21:13)
[2020-06-17] MEDS: Furosemide 20 MG TAB PO SCH (08:51)
[2020-06-17] MEDS: Nicotine 14 MG PATCH TD SCH (08:51)
[2020-06-17] MEDS: Cyclobenzaprine 10 MG TAB PO PRN (08:55)
[2020-06-17] MEDS: Vancomycin HCl 750 MG in Sodium Chloride 0.9% 250 ML 250 ML IVPB SCH (08:57)
[2020-06-17] MEDS: Vancomycin HCl 500 MG in Sodium Chloride 0.9% 100 ML IVPB SCH (09:02)
[2020-06-17 09:08] LABS: Vancomycin, Trough 16.7 ug/mL
[2020-06-17] MEDS: HYDROcodone/Acetaminophen 5/325 mg Tablet PO PRN (09:51)
[2020-06-17] MEDS ORDERED: Morphine 2 MG/ML VIAL ONE (14:25)
[2020-06-17] MEDS: Morphine 2 MG/ML VIAL SLOW IVP PRN (14:34)
[2020-06-17] MEDS: Atorvastatin Calcium 10 MG TAB PO SCH (21:14)
[2020-06-18] MEDS: Benzonatate 100 MG CAP PO PRN (00:53)
[2020-06-18] MEDS: HYDROcodone/Acetaminophen 5/325 mg Tablet PO PRN ×2 (00:53→14:22)
[2020-06-18] MEDS: Meropenem 1 GM in Sodium Chloride 0.9% 100 ML IVPB SCH ×3 (05:01→21:44)
[2020-06-18 05:43] LABS: Hemoglobin 10.5 g/dL (14.0-18.0); Platelet Count 90 thou/uL (130-400)
[2020-06-18] MEDS: Vancomycin HCl 750 MG in Sodium Chloride 0.9% 250 ML 250 ML IVPB SCH (09:07)
[2020-06-18] MEDS: Vancomycin HCl 500 MG in Sodium Chloride 0.9% 100 ML IVPB SCH (09:07)
[2020-06-18] MEDS: Furosemide 20 MG TAB PO SCH (09:08)
[2020-06-18] MEDS: Famotidine 20 MG TAB PO SCH ×2 (09:08→21:43)
[2020-06-18] MEDS: Nicotine 14 MG PATCH TD SCH (09:08)
[2020-06-18] MEDS: Apixaban 5 MG TAB PO SCH ×2 (09:08→21:43)
[2020-06-18] MEDS: Atorvastatin Calcium 10 MG TAB PO SCH (21:43)
[2020-06-19] MEDS: Benzonatate 100 MG CAP PO PRN ×2 (00:40→20:29)
[2020-06-19] MEDS: Meropenem 1 GM in Sodium Chloride 0.9% 100 ML IVPB SCH ×3 (05:51→21:28)
[2020-06-19] MEDS: HYDROcodone/Acetaminophen 5/325 mg Tablet PO PRN ×3 (08:31→20:29)
[2020-06-19] MEDS: Apixaban 5 MG TAB PO SCH ×2 (08:33→21:27)
[2020-06-19] MEDS: Furosemide 20 MG TAB PO SCH (08:33)
[2020-06-19] MEDS: Famotidine 20 MG TAB PO SCH ×2 (08:33→21:27)
[2020-06-19] MEDS: Vancomycin HCl 750 MG in Sodium Chloride 0.9% 250 ML 250 ML IVPB SCH (08:34)
[2020-06-19] MEDS: Vancomycin HCl 500 MG in Sodium Chloride 0.9% 100 ML IVPB SCH (09:00)
[2020-06-19] MEDS: Nicotine 14 MG PATCH TD SCH (10:17)
[2020-06-19] MEDS: Atorvastatin Calcium 10 MG TAB PO SCH (21:28)
[2020-06-20] MEDS: Meropenem 1 GM in Sodium Chloride 0.9% 100 ML IVPB SCH ×3 (05:19→21:33)
[2020-06-20 06:01] LABS: ALT (SGPT) 30 U/L (8-55); AST (SGOT) 17 U/L (5-34); Alkaline Phosphatase 106 U/L (40-110); Anion Gap 12 mmol/L (10-20); BUN (Urea Nitrogen) 27 mg/dL (8.4-25.7); Bilirubin, Total 0.2 mg/dL (0.2-1.2); Calc. Creatinine Clearance 92 mL/min (70-130); Calcium 8.3 mg/dL (7.8-10.44); Carbon Dioxide 27 mmol/L (23-31); Chloride 106 mmol/L (98-107); Globulin 4.3 g/dL (2.4-3.5); Glucose 114 mg/dL (80-115); Potassium 3.9 mmol/L (3.5-5.1); Protein, Total 7.3 g/dL (5.8-8.1); Sodium 141 mmol/L (136-145)
[2020-06-20 06:21] LABS: Hemoglobin 10.9 g/dL (14.0-18.0); Mean Corpuscular HGB CONC 31.1 g/dL (32.0-36.0); Mean Corpuscular Hemoglobin 25.4 pg (27.0-31.0); Mean Corpuscular Volume 81.7 fL (78.0-98.0); Mean Platelet Volume 8.9 fL (7.4-10.4); Platelet Count 91 thou/uL (130-400); White Blood Cell (WBC) Count 5.9 thou/uL (4.8-10.8)
[2020-06-20 06:48] LABS: #Basophils 0.1 thou/uL (0.0-0.2); #Eosinphils 0.5 thou/uL (0.0-0.7); #Lymphocytes 1.1 thou/uL (1.20-3.40); #Monocytes 0.5 thou/uL (0.11-0.59); #Neutrophils 3.8 thou/uL (1.40-6.50); %Basophils 1.1 % (0.0-1.0); %Eosinophils 9.1 % (0.0-10.0); %Lymphocytes 18.3 % (21.0-51.0); %Monocytes 7.7 % (0.0-10.0); %Neutrophils 63.8 % (42.0-75.0); Band 3 % (5-11); Eosinophils 11 % (0-10); Hypochromia SLIGHT = 6-15 cells (100X) (0-5/hpf); Lymphocytes 17 % (21-51); MDiff Complete? YES; Monocytes 4 % (0-10); Neutrophil 64 % (42-75); Platelet Morphology Comment Appears Decreased
[2020-06-20 06:49] LABS: Manual Diff?? YES
[2020-06-20] MEDS: HYDROcodone/Acetaminophen 5/325 mg Tablet PO PRN ×2 (07:56→20:22)
[2020-06-20] MEDS: Furosemide 20 MG TAB PO SCH (10:24)
[2020-06-20] MEDS: Famotidine 20 MG TAB PO SCH ×2 (10:24→20:23)
[2020-06-20] MEDS: Apixaban 5 MG TAB PO SCH ×2 (10:25→20:24)
[2020-06-20] MEDS: Nicotine 14 MG PATCH TD SCH (10:25)
[2020-06-20] MEDS: Vancomycin HCl 750 MG in Sodium Chloride 0.9% 250 ML 250 ML IVPB SCH (10:26)
[2020-06-20] MEDS: Vancomycin HCl 500 MG in Sodium Chloride 0.9% 100 ML IVPB SCH (10:27)
[2020-06-20] MEDS ORDERED: Morphine 2 MG/ML VIAL ONE (15:10)
[2020-06-20] MEDS: Morphine 2 MG/ML VIAL SLOW IVP PRN (15:17)
[2020-06-20] MEDS: Atorvastatin Calcium 10 MG TAB PO SCH (20:24)
[2020-06-20] MEDS: Benzonatate 100 MG CAP PO PRN (21:33)
[2020-06-21] MEDS: HYDROcodone/Acetaminophen 5/325 mg Tablet PO PRN ×3 (03:38→21:28)
[2020-06-21] MEDS: Meropenem 1 GM in Sodium Chloride 0.9% 100 ML IVPB SCH ×3 (05:10→21:13)
[2020-06-21] MEDS: Vancomycin HCl 750 MG in Sodium Chloride 0.9% 250 ML 250 ML IVPB SCH (08:49)
[2020-06-21] MEDS: Famotidine 20 MG TAB PO SCH ×2 (08:50→21:12)
[2020-06-21] MEDS: Furosemide 20 MG TAB PO SCH (08:51)
[2020-06-21] MEDS: Nicotine 14 MG PATCH TD SCH (08:52)
[2020-06-21] MEDS: Apixaban 5 MG TAB PO SCH ×2 (08:52→21:12)
[2020-06-21] MEDS: Vancomycin HCl 500 MG in Sodium Chloride 0.9% 100 ML IVPB SCH (09:02)
[2020-06-21] MEDS: Benzonatate 100 MG CAP PO PRN (17:44)
[2020-06-21] MEDS: Atorvastatin Calcium 10 MG TAB PO SCH (21:12)
[2020-06-21] MEDS: Cyclobenzaprine 10 MG TAB PO PRN (21:12)
[2020-06-22] MEDS: Meropenem 1 GM in Sodium Chloride 0.9% 100 ML IVPB SCH ×3 (05:08→21:12)
[2020-06-22] MEDS: Furosemide 20 MG TAB PO SCH (09:00)
[2020-06-22] MEDS: Apixaban 5 MG TAB PO SCH ×2 (09:00→21:08)
[2020-06-22] MEDS: Famotidine 20 MG TAB PO SCH ×2 (09:00→21:08)
[2020-06-22] MEDS: Nicotine 14 MG PATCH TD SCH (09:01)
[2020-06-22] MEDS: Vancomycin HCl 750 MG in Sodium Chloride 0.9% 250 ML 250 ML IVPB SCH (09:03)
[2020-06-22] MEDS: Vancomycin HCl 500 MG in Sodium Chloride 0.9% 100 ML IVPB SCH (09:03)
[2020-06-22] MEDS: HYDROcodone/Acetaminophen 5/325 mg Tablet PO PRN ×2 (09:31→21:09)
[2020-06-22 20:43] VITALS: BMI 27.3
[2020-06-22] MEDS: Cyclobenzaprine 10 MG TAB PO PRN (21:08)
[2020-06-22] MEDS: Atorvastatin Calcium 10 MG TAB PO SCH (21:08)
[2020-06-23] MEDS: Meropenem 1 GM in Sodium Chloride 0.9% 100 ML IVPB SCH ×3 (05:15→20:53)
[2020-06-23] MEDS: Furosemide 20 MG TAB PO SCH (08:40)
[2020-06-23] MEDS: Famotidine 20 MG TAB PO SCH ×2 (08:40→20:50)
[2020-06-23] MEDS: Vancomycin HCl 750 MG in Sodium Chloride 0.9% 250 ML 250 ML IVPB SCH (08:41)
[2020-06-23] MEDS: Vancomycin HCl 500 MG in Sodium Chloride 0.9% 100 ML IVPB SCH (08:41)
[2020-06-23] MEDS: Apixaban 5 MG TAB PO SCH ×2 (11:12→20:50)
[2020-06-23] MEDS: Nicotine 14 MG PATCH TD SCH (11:14)
[2020-06-23] MEDS: Benzonatate 100 MG CAP PO PRN (13:38)
[2020-06-23] MEDS: Atorvastatin Calcium 10 MG TAB PO SCH (20:50)
[2020-06-23] MEDS: Cyclobenzaprine 10 MG TAB PO PRN (20:50)
[2020-06-23] MEDS: HYDROcodone/Acetaminophen 5/325 mg Tablet PO PRN (20:51)
[2020-06-23] MEDS: guaiFENesin ER 600 MG TAB PO PRN (20:57)
[2020-06-24] MEDS: Benzonatate 100 MG CAP PO PRN (02:09)
[2020-06-24] MEDS: Meropenem 1 GM in Sodium Chloride 0.9% 100 ML IVPB SCH ×3 (05:00→21:51)
[2020-06-24] MEDS: Famotidine 20 MG TAB PO SCH ×2 (08:29→21:52)
[2020-06-24] MEDS: guaiFENesin ER 600 MG TAB PO PRN (08:29)
[2020-06-24] MEDS: Apixaban 5 MG TAB PO SCH ×2 (08:29→21:52)
[2020-06-24] MEDS: Furosemide 20 MG TAB PO SCH (08:29)
[2020-06-24] MEDS: Nicotine 14 MG PATCH TD SCH (08:30)
[2020-06-24] MEDS: HYDROcodone/Acetaminophen 5/325 mg Tablet PO PRN ×2 (08:33→22:01)
[2020-06-24 09:08] LABS: Vancomycin, Trough 16.5 ug/mL
[2020-06-24] MEDS: Vancomycin HCl 500 MG in Sodium Chloride 0.9% 100 ML IVPB SCH (09:17)
[2020-06-24] MEDS: Vancomycin HCl 750 MG in Sodium Chloride 0.9% 250 ML 250 ML IVPB SCH (09:17)
[2020-06-24] MEDS: traMADol HCl 50 MG TAB PO PRN (12:30)
[2020-06-24] MEDS: Atorvastatin Calcium 10 MG TAB PO SCH (21:52)
[2020-06-25] MEDS: Meropenem 1 GM in Sodium Chloride 0.9% 100 ML IVPB SCH ×3 (05:30→21:19)
[2020-06-25] MEDS: Furosemide 20 MG TAB PO SCH (09:33)
[2020-06-25] MEDS: Apixaban 5 MG TAB PO SCH ×2 (09:33→21:06)
[2020-06-25] MEDS: Famotidine 20 MG TAB PO SCH ×2 (09:33→21:06)
[2020-06-25] MEDS: Nicotine 14 MG PATCH TD SCH (09:33)
[2020-06-25] MEDS: Vancomycin HCl 500 MG in Sodium Chloride 0.9% 100 ML IVPB SCH (09:34)
[2020-06-25] MEDS: Vancomycin HCl 750 MG in Sodium Chloride 0.9% 250 ML 250 ML IVPB SCH (09:34)
[2020-06-25] MEDS: guaiFENesin ER 600 MG TAB PO PRN ×2 (09:52→21:06)
[2020-06-25] MEDS ORDERED: predniSONE 20 MG TAB PO SCH (18:00)
[2020-06-25] MEDS: Cyclobenzaprine 10 MG TAB PO PRN (21:06)
[2020-06-25] MEDS: Atorvastatin Calcium 10 MG TAB PO SCH (21:07)
[2020-06-26] MEDS: Meropenem 1 GM in Sodium Chloride 0.9% 100 ML IVPB SCH ×3 (05:18→20:48)
[2020-06-26] MEDS: Furosemide 20 MG TAB PO SCH (09:01)
[2020-06-26] MEDS: Apixaban 5 MG TAB PO SCH ×2 (09:02→20:47)
[2020-06-26] MEDS: Famotidine 20 MG TAB PO SCH ×2 (09:03→20:45)
[2020-06-26] MEDS: Vancomycin HCl 500 MG in Sodium Chloride 0.9% 100 ML IVPB SCH (09:05)
[2020-06-26] MEDS: Vancomycin HCl 750 MG in Sodium Chloride 0.9% 250 ML 250 ML IVPB SCH (09:06)
[2020-06-26] MEDS: traMADol HCl 50 MG TAB PO PRN ×2 (09:15→20:46)
[2020-06-26] MEDS: Cyclobenzaprine 10 MG TAB PO PRN (09:16)
[2020-06-26] MEDS: Nicotine 14 MG PATCH TD SCH (13:28)
[2020-06-26] MEDS ORDERED: predniSONE 20 MG TAB PO SCH (13:30)
[2020-06-26] MEDS: Atorvastatin Calcium 10 MG TAB PO SCH (20:46)
[2020-06-27] MEDS: Meropenem 1 GM in Sodium Chloride 0.9% 100 ML IVPB SCH ×3 (05:33→21:06)
[2020-06-27 05:52] LABS: ALT (SGPT) 25 U/L (8-55); AST (SGOT) 17 U/L (5-34); Albumin 2.9 g/dL (3.4-4.8); Alkaline Phosphatase 108 U/L (40-110); Anion Gap 13 mmol/L (10-20); BUN (Urea Nitrogen) 17 mg/dL (8.4-25.7); Bilirubin, Total 0.3 mg/dL (0.2-1.2); Calc. Creatinine Clearance 104 mL/min (70-130); Calcium 8.7 mg/dL (7.8-10.44); Carbon Dioxide 27 mmol/L (23-31); Chloride 104 mmol/L (98-107); Globulin 4.1 g/dL (2.4-3.5); Glucose 105 mg/dL (80-115); Potassium 3.9 mmol/L (3.5-5.1); Sodium 140 mmol/L (136-145)
[2020-06-27 06:01] LABS: #Lymphocytes 1.5 thou/uL (1.20-3.40); #Monocytes 0.6 thou/uL (0.11-0.59); #Neutrophils 5.2 thou/uL (1.40-6.50); %Basophils 0.5 % (0.0-1.0); %Monocytes 7.5 % (0.0-10.0); %Neutrophils 70.9 % (42.0-75.0); Mean Corpuscular HGB CONC 32.3 g/dL (32.0-36.0); Mean Corpuscular Volume 80.5 fL (78.0-98.0); Mean Platelet Volume 9.2 fL (7.4-10.4); Platelet Count 71 thou/uL (130-400); Platelet Morphology Comment Appears Decreased; RBC Distribution Width 17.9 % (11.5-14.5); RBC Morphology Normal; Red Blood Cell (RBC) Count 4.25 mill/uL (4.70-6.10); White Blood Cell (WBC) Count 7.3 thou/uL (4.8-10.8)
[2020-06-27] MEDS: traMADol HCl 50 MG TAB PO PRN (07:24)
[2020-06-27] MEDS ORDERED: predniSONE 20 MG TAB PO SCH (08:00)
[2020-06-27] MEDS: Apixaban 5 MG TAB PO SCH ×2 (08:38→21:06)
[2020-06-27] MEDS: Famotidine 20 MG TAB PO SCH ×2 (08:38→21:05)
[2020-06-27] MEDS: Furosemide 20 MG TAB PO SCH (08:39)
[2020-06-27] MEDS: Vancomycin HCl 500 MG in Sodium Chloride 0.9% 100 ML IVPB SCH (08:43)
[2020-06-27] MEDS: Vancomycin HCl 750 MG in Sodium Chloride 0.9% 250 ML 250 ML IVPB SCH (08:43)
[2020-06-27] MEDS: Nicotine 14 MG PATCH TD SCH (10:16)
[2020-06-27] MEDS: Benzonatate 100 MG CAP PO PRN (11:10)
[2020-06-27] MEDS: HYDROcodone/Acetaminophen 5/325 mg Tablet PO PRN ×2 (14:40→21:08)
[2020-06-27] MEDS: guaiFENesin ER 600 MG TAB PO PRN (21:05)
[2020-06-27] MEDS: Cyclobenzaprine 10 MG TAB PO PRN (21:05)
[2020-06-27] MEDS: Atorvastatin Calcium 10 MG TAB PO SCH (21:06)
[2020-06-28] MEDS: Meropenem 1 GM in Sodium Chloride 0.9% 100 ML IVPB SCH ×3 (05:21→21:18)
[2020-06-28] MEDS: Vancomycin HCl 500 MG in Sodium Chloride 0.9% 100 ML IVPB SCH (09:37)
[2020-06-28] MEDS: Vancomycin HCl 750 MG in Sodium Chloride 0.9% 250 ML 250 ML IVPB SCH (09:37)
[2020-06-28] MEDS: guaiFENesin ER 600 MG TAB PO SCH ×2 (09:38→21:20)
[2020-06-28] MEDS: Apixaban 5 MG TAB PO SCH ×2 (09:38→21:19)
[2020-06-28] MEDS: Famotidine 20 MG TAB PO SCH ×2 (09:38→21:18)
[2020-06-28] MEDS: Nicotine 14 MG PATCH TD SCH (09:39)
[2020-06-28] MEDS: HYDROcodone/Acetaminophen 5/325 mg Tablet PO PRN (11:37)
[2020-06-28] MEDS: Atorvastatin Calcium 10 MG TAB PO SCH (21:19)
[2020-06-29] MEDS: Meropenem 1 GM in Sodium Chloride 0.9% 100 ML IVPB SCH ×3 (05:25→21:36)
[2020-06-29] MEDS: guaiFENesin ER 600 MG TAB PO SCH ×2 (09:33→21:35)
[2020-06-29] MEDS: Apixaban 5 MG TAB PO SCH ×2 (09:33→21:35)
[2020-06-29] MEDS: Famotidine 20 MG TAB PO SCH ×2 (09:33→21:35)
[2020-06-29] MEDS: Nicotine 14 MG PATCH TD SCH (09:34)
[2020-06-29] MEDS: Vancomycin HCl 750 MG in Sodium Chloride 0.9% 250 ML 250 ML IVPB SCH (09:35)
[2020-06-29] MEDS: Vancomycin HCl 500 MG in Sodium Chloride 0.9% 100 ML IVPB SCH (09:36)
[2020-06-29 09:42] LABS: Vancomycin, Trough 16.2 ug/mL
[2020-06-29] MEDS: HYDROcodone/Acetaminophen 5/325 mg Tablet PO PRN (13:04)
[2020-06-29] MEDS: hydrOXYzine 25 MG TAB PO PRN (20:13)
[2020-06-29] MEDS: Atorvastatin Calcium 10 MG TAB PO SCH (21:35)
[2020-06-30] MEDS: Meropenem 1 GM in Sodium Chloride 0.9% 100 ML IVPB SCH ×3 (05:33→20:49)
[2020-06-30 07:09] LABS: ALT (SGPT) 47 U/L (8-55); AST (SGOT) 24 U/L (5-34); Alkaline Phosphatase 109 U/L (40-110); Carbon Dioxide 27 mmol/L (23-31); Protein, Total 7.1 g/dL (5.8-8.1)
[2020-06-30 07:10] LABS: Calcium 8.7 mg/dL (7.8-10.44); Glucose 113 mg/dL (80-115)
[2020-06-30 07:12] LABS: Anion Gap 13 mmol/L (10-20); BUN (Urea Nitrogen) 24 mg/dL (8.4-25.7); Bilirubin, Total 0.5 mg/dL (0.2-1.2); Calc. Creatinine Clearance 93 mL/min (70-130); Chloride 106 mmol/L (98-107); Potassium 3.9 mmol/L (3.5-5.1); Sodium 142 mmol/L (136-145)
[2020-06-30 07:13] LABS: Albumin 3.2 g/dL (3.4-4.8); Globulin 3.9 g/dL (2.4-3.5); Hemoglobin 12.3 g/dL (14.0-18.0); Red Blood Cell (RBC) Count 4.81 mill/uL (4.70-6.10); White Blood Cell (WBC) Count 8.1 thou/uL (4.8-10.8)
[2020-06-30 07:14] LABS: %Lymphocytes 25.3 % (21.0-51.0); %Monocytes 7.7 % (0.0-10.0); Manual Diff?? NO; Mean Corpuscular HGB CONC 31.7 g/dL (32.0-36.0); Mean Corpuscular Hemoglobin 25.7 pg (27.0-31.0); Mean Corpuscular Volume 80.9 fL (78.0-98.0); Mean Platelet Volume 10.7 fL (7.4-10.4); Platelet Count 78 thou/uL (130-400); RBC Distribution Width 18.1 % (11.5-14.5)
[2020-06-30 07:15] LABS: #Basophils 0.1 thou/uL (0.0-0.2); #Lymphocytes 2.1 thou/uL (1.20-3.40); #Monocytes 0.6 thou/uL (0.11-0.59); #Neutrophils 4.4 thou/uL (1.40-6.50); %Basophils 1.1 % (0.0-1.0)
[2020-06-30 07:24] LABS: CKMB 2.1 ng/mL (0-6.6)
[2020-06-30] MEDS ORDERED: predniSONE 20 MG TAB ONE (07:43)
[2020-06-30] MEDS ORDERED: Doxycycline 100 MG CAP ONE (07:43)
[2020-06-30] MEDS ORDERED: predniSONE 20 MG TAB PO SCH (09:00)
[2020-06-30] MEDS: Furosemide 20 MG TAB PO SCH (10:24)
[2020-06-30] MEDS: Apixaban 5 MG TAB PO SCH ×2 (10:24→20:49)
[2020-06-30] MEDS: Doxycycline 100 MG CAP PO SCH ×2 (10:24→20:49)
[2020-06-30] MEDS: Famotidine 20 MG TAB PO SCH ×2 (10:24→20:48)
[2020-06-30] MEDS: guaiFENesin ER 600 MG TAB PO SCH ×2 (10:24→20:49)
[2020-06-30] MEDS: Vancomycin HCl 500 MG in Sodium Chloride 0.9% 100 ML IVPB SCH (10:25)
[2020-06-30] MEDS: Vancomycin HCl 750 MG in Sodium Chloride 0.9% 250 ML 250 ML IVPB SCH (10:27)
[2020-06-30] MEDS: Nicotine 14 MG PATCH TD SCH (10:27)
[2020-06-30] MEDS: traMADol HCl 50 MG TAB PO PRN (17:24)
[2020-06-30] MEDS: Atorvastatin Calcium 10 MG TAB PO SCH (20:48)
[2020-06-30] MEDS: HYDROcodone/Acetaminophen 5/325 mg Tablet PO PRN (20:51)
[2020-07-01] MEDS: hydrOXYzine 25 MG TAB PO PRN (02:30)
[2020-07-01] MEDS: Meropenem 1 GM in Sodium Chloride 0.9% 100 ML IVPB SCH ×3 (06:01→21:00)
[2020-07-01] MEDS: predniSONE 20 MG TAB PO SCH (09:17)
[2020-07-01] MEDS: guaiFENesin ER 600 MG TAB PO SCH ×2 (09:18→20:55)
[2020-07-01] MEDS: Doxycycline 100 MG CAP PO SCH ×2 (09:18→20:54)
[2020-07-01] MEDS: Famotidine 20 MG TAB PO SCH ×2 (09:18→20:54)
[2020-07-01] MEDS: Furosemide 20 MG TAB PO SCH (09:19)
[2020-07-01] MEDS: Apixaban 5 MG TAB PO SCH ×2 (09:19→20:54)
[2020-07-01] MEDS: Nicotine 14 MG PATCH TD SCH (09:20)
[2020-07-01] MEDS: HYDROcodone/Acetaminophen 5/325 mg Tablet PO PRN (09:24)
[2020-07-01] MEDS: Vancomycin HCl 500 MG in Sodium Chloride 0.9% 100 ML IVPB SCH (09:26)
[2020-07-01] MEDS: Vancomycin HCl 750 MG in Sodium Chloride 0.9% 250 ML 250 ML IVPB SCH (09:26)
[2020-07-01] MEDS: traMADol HCl 50 MG TAB PO PRN (12:51)
[2020-07-01] MEDS: Atorvastatin Calcium 10 MG TAB PO SCH (20:54)
[2020-07-02] MEDS: Meropenem 1 GM in Sodium Chloride 0.9% 100 ML IVPB SCH ×3 (05:22→21:07)
[2020-07-02] MEDS: predniSONE 20 MG TAB PO SCH (09:42)
[2020-07-02] MEDS: Doxycycline 100 MG CAP PO SCH ×2 (09:43→21:16)
[2020-07-02] MEDS: Apixaban 5 MG TAB PO SCH ×2 (09:43→21:06)
[2020-07-02] MEDS: Furosemide 20 MG TAB PO SCH (09:43)
[2020-07-02] MEDS: guaiFENesin ER 600 MG TAB PO SCH ×2 (09:43→21:06)
[2020-07-02] MEDS: Famotidine 20 MG TAB PO SCH ×2 (09:44→21:06)
[2020-07-02] MEDS: Nicotine 14 MG PATCH TD SCH (09:44)
[2020-07-02] MEDS: Vancomycin HCl 750 MG in Sodium Chloride 0.9% 250 ML 250 ML IVPB SCH (09:46)
[2020-07-02] MEDS: Vancomycin HCl 500 MG in Sodium Chloride 0.9% 100 ML IVPB SCH (09:47)
[2020-07-02] MEDS: traMADol HCl 50 MG TAB PO PRN (10:05)
[2020-07-02] MEDS: Atorvastatin Calcium 10 MG TAB PO SCH (21:06)
[2020-07-02] MEDS: Cyclobenzaprine 10 MG TAB PO PRN (21:18)
[2020-07-02] MEDS: HYDROcodone/Acetaminophen 5/325 mg Tablet PO PRN (23:22)
[2020-07-03] MEDS: Meropenem 1 GM in Sodium Chloride 0.9% 100 ML IVPB SCH ×3 (05:33→21:43)
[2020-07-03] MEDS: predniSONE 20 MG TAB PO SCH (08:59)
[2020-07-03] MEDS: HYDROcodone/Acetaminophen 5/325 mg Tablet PO PRN (09:00)
[2020-07-03] MEDS: Famotidine 20 MG TAB PO SCH ×2 (09:00→21:42)
[2020-07-03] MEDS: Doxycycline 100 MG CAP PO SCH ×2 (09:00→21:42)
[2020-07-03] MEDS: Apixaban 5 MG TAB PO SCH ×2 (09:01→21:42)
[2020-07-03] MEDS: Nicotine 14 MG PATCH TD SCH (09:01)
[2020-07-03] MEDS: Vancomycin HCl 500 MG in Sodium Chloride 0.9% 100 ML IVPB SCH (09:01)
[2020-07-03] MEDS: guaiFENesin ER 600 MG TAB PO SCH ×2 (09:01→21:42)
[2020-07-03] MEDS: Furosemide 20 MG TAB PO SCH (09:01)
[2020-07-03] MEDS: Vancomycin HCl 750 MG in Sodium Chloride 0.9% 250 ML 250 ML IVPB SCH (09:02)
[2020-07-03] MEDS: Benzonatate 100 MG CAP PO PRN (19:51)
[2020-07-03] MEDS: Atorvastatin Calcium 10 MG TAB PO SCH (21:42)
[2020-07-04] MEDS: HYDROcodone/Acetaminophen 5/325 mg Tablet PO PRN ×2 (00:36→12:43)
[2020-07-04] MEDS: Meropenem 1 GM in Sodium Chloride 0.9% 100 ML IVPB SCH ×3 (05:17→21:33)
[2020-07-04 05:55] LABS: #Monocytes 0.8 thou/uL (0.11-0.59); %Basophils 0.6 % (0.0-1.0); %Eosinophils 0.4 % (0.0-10.0); %Lymphocytes 25.5 % (21.0-51.0); %Monocytes 10.2 % (0.0-10.0); %Neutrophils 63.4 % (42.0-75.0); Hemoglobin 11.9 g/dL (14.0-18.0); Mean Corpuscular HGB CONC 31.9 g/dL (32.0-36.0); Mean Corpuscular Hemoglobin 25.9 pg (27.0-31.0); Mean Corpuscular Volume 81.2 fL (78.0-98.0); Mean Platelet Volume 9.4 fL (7.4-10.4); Platelet Count 77 thou/uL (130-400); RBC Distribution Width 17.8 % (11.5-14.5); Red Blood Cell (RBC) Count 4.61 mill/uL (4.70-6.10); White Blood Cell (WBC) Count 7.9 thou/uL (4.8-10.8)
[2020-07-04 06:03] LABS: ALT (SGPT) 61 U/L (8-55); AST (SGOT) 25 U/L (5-34); Albumin 3.2 g/dL (3.4-4.8); Alkaline Phosphatase 105 U/L (40-110); Anion Gap 14 mmol/L (10-20); BUN (Urea Nitrogen) 30 mg/dL (8.4-25.7); Bilirubin, Total 0.5 mg/dL (0.2-1.2); Calc. Creatinine Clearance 97 mL/min (70-130); Calcium 8.7 mg/dL (7.8-10.44); Carbon Dioxide 30 mmol/L (23-31); Chloride 101 mmol/L (98-107); Globulin 3.5 g/dL (2.4-3.5); Glucose 95 mg/dL (80-115); Potassium 3.5 mmol/L (3.5-5.1); Protein, Total 6.7 g/dL (5.8-8.1); Sodium 141 mmol/L (136-145)
[2020-07-04 06:05] LABS: Platelet Morphology Comment Appears Decreased
[2020-07-04] MEDS: Doxycycline 100 MG CAP PO SCH ×2 (08:37→21:33)
[2020-07-04] MEDS: guaiFENesin ER 600 MG TAB PO SCH ×2 (08:37→21:33)
[2020-07-04] MEDS: predniSONE 20 MG TAB PO SCH (08:37)
[2020-07-04] MEDS: Famotidine 20 MG TAB PO SCH ×2 (08:38→21:33)
[2020-07-04] MEDS: Vancomycin HCl 750 MG in Sodium Chloride 0.9% 250 ML 250 ML IVPB SCH (08:38)
[2020-07-04] MEDS: Apixaban 5 MG TAB PO SCH ×2 (08:38→21:33)
[2020-07-04] MEDS: Furosemide 20 MG TAB PO SCH (08:38)
[2020-07-04] MEDS: Vancomycin HCl 500 MG in Sodium Chloride 0.9% 100 ML IVPB SCH (08:39)
[2020-07-04] MEDS: Nicotine 14 MG PATCH TD SCH (12:53)
[2020-07-04] MEDS: Atorvastatin Calcium 10 MG TAB PO SCH (21:33)
[2020-07-05] MEDS: Meropenem 1 GM in Sodium Chloride 0.9% 100 ML IVPB SCH ×3 (06:18→21:05)
[2020-07-05] MEDS: Doxycycline 100 MG CAP PO SCH ×2 (09:17→21:04)
[2020-07-05] MEDS: Famotidine 20 MG TAB PO SCH ×2 (09:17→21:04)
[2020-07-05] MEDS: Furosemide 20 MG TAB PO SCH (09:17)
[2020-07-05] MEDS: Vancomycin HCl 750 MG in Sodium Chloride 0.9% 250 ML 250 ML IVPB SCH (09:17)
[2020-07-05] MEDS: Apixaban 5 MG TAB PO SCH ×2 (09:17→21:04)
[2020-07-05] MEDS: guaiFENesin ER 600 MG TAB PO SCH ×2 (09:17→21:04)
[2020-07-05] MEDS: Vancomycin HCl 500 MG in Sodium Chloride 0.9% 100 ML IVPB SCH (09:18)
[2020-07-05] MEDS: HYDROcodone/Acetaminophen 5/325 mg Tablet PO PRN (09:48)
[2020-07-05] MEDS ORDERED: Meropenem 1 GM VIAL ONE (13:16)
[2020-07-05] MEDS: Nicotine 14 MG PATCH TD SCH (15:28)
[2020-07-05] MEDS: Atorvastatin Calcium 10 MG TAB PO SCH (21:04)
[2020-07-06] MEDS: Doxycycline 100 MG CAP PO SCH ×2 (09:11→20:26)
[2020-07-06] MEDS: Famotidine 20 MG TAB PO SCH ×2 (09:11→20:25)
[2020-07-06] MEDS: Nicotine 14 MG PATCH TD SCH (09:12)
[2020-07-06] MEDS: Apixaban 5 MG TAB PO SCH ×2 (09:12→20:26)
[2020-07-06] MEDS: Furosemide 20 MG TAB PO SCH (09:12)
[2020-07-06] MEDS: guaiFENesin ER 600 MG TAB PO SCH ×2 (09:15→20:26)
[2020-07-06] MEDS: HYDROcodone/Acetaminophen 5/325 mg Tablet PO PRN ×2 (10:06→18:26)
[2020-07-06] MEDS: traMADol HCl 50 MG TAB PO PRN (13:48)
[2020-07-06] MEDS: Atorvastatin Calcium 10 MG TAB PO SCH (20:26)
[2020-07-07] MEDS: Doxycycline 100 MG CAP PO SCH (08:30)
[2020-07-07] MEDS: Famotidine 20 MG TAB PO SCH (08:30)
[2020-07-07] MEDS: Apixaban 5 MG TAB PO SCH (08:30)
[2020-07-07] MEDS: Furosemide 20 MG TAB PO SCH (08:30)
[2020-07-07] MEDS: guaiFENesin ER 600 MG TAB PO SCH (08:30)
[2020-07-07] MEDS: HYDROcodone/Acetaminophen 5/325 mg Tablet PO PRN (08:41)
[2020-07-07] MEDS: Nicotine 14 MG PATCH TD SCH (11:13)
[2020-07-07 18:41] VITALS: BP 157/88; TEMP 96.7
== END 2020-07-07 18:18 | disposition home health service (06) | DRG 565 ==
LOC: BURMED 17:04
PROVIDERS: ADMIT Family Medicine; ATTEND Family Medicine
DX: T87.43 Infection of amputation stump, right lower extremity (principal); M86.451 Chronic osteomyelitis with draining sinus, right femur; I50.22 Chronic systolic (congestive) heart failure; J44.1 Chronic obstructive pulmonary disease with (acute) exacerbation; D64.9 Anemia, unspecified; I73.9 Peripheral vascular disease, unspecified; F41.9 Anxiety disorder, unspecified; Y83.5 Amputation of limb(s) as the cause of abnormal reaction of the patient, or of later complication, without mention of misadventure at the time of the procedure; K29.50 Unspecified chronic gastritis without bleeding; F17.210 Nicotine dependence, cigarettes, uncomplicated; Z86.711 Personal history of pulmonary embolism; Z89.611 Acquired absence of right leg above knee; Z89.512 Acquired absence of left leg below knee; Z79.899 Other long term (current) drug therapy
CPT/HCPCS: 36415; 71045; 80053; 80202; 82553; 82565; 83605; 84484; 85014; 85018; 85025; 85049; 85379; 86140; 94640; 97602; J1335; J2185; J2270; J3370; J3490; J7050; J7512; J7620; Q0162

== ENCOUNTER 2020-06-30 06:46 | Emergency (ER) | payer MEDICARE, MEDICAID ==
[2020-06-30] MEDS ORDERED: Albuterol Sulfate 2.5 mg/0.5 ml Neb ONE (07:02)
== END 2020-06-30 07:56 | disposition still patient (30) ==
LOC: BURERS 06:46
DX: J44.1 Chronic obstructive pulmonary disease with (acute) exacerbation (principal); I25.10 Atherosclerotic heart disease of native coronary artery without angina pectoris; I11.0 Hypertensive heart disease with heart failure; I50.9 Heart failure, unspecified; E78.2 Mixed hyperlipidemia; F17.210 Nicotine dependence, cigarettes, uncomplicated; Z79.899 Other long term (current) drug therapy; Z79.01 Long term (current) use of anticoagulants
CPT/HCPCS: 83880; J7611

== ENCOUNTER 2020-07-29 18:10 | Emergency (ER) | payer MEDICARE, MEDICAID ==
[2020-07-29] MEDS ORDERED: Albuterol Sulfate 2.5 mg/0.5 ml Neb ONE (18:44)
[2020-07-29] MEDS ORDERED: Magnesium 2 GM/50 ML BAG (IN WATER) ONE (18:44)
[2020-07-29 19:02] LABS: #Basophils 0.1 thou/uL (0.0-0.2); #Eosinphils 0.3 thou/uL (0.0-0.7); #Lymphocytes 1.6 thou/uL (1.20-3.40); #Monocytes 0.5 thou/uL (0.11-0.59); #Neutrophils 11.6 thou/uL (1.40-6.50); %Basophils 0.5 % (0.0-1.0); %Eosinophils 2.3 % (0.0-10.0); %Lymphocytes 11.6 % (21.0-51.0); %Monocytes 3.4 % (0.0-10.0); %Neutrophils 82.3 % (42.0-75.0); Hemoglobin 13.2 g/dL (14.0-18.0); Mean Corpuscular HGB CONC 32.2 g/dL (32.0-36.0); Mean Corpuscular Hemoglobin 25.6 pg (27.0-31.0); Mean Corpuscular Volume 79.4 fL (78.0-98.0); Platelet Count 382 thou/uL (130-400); RBC Distribution Width 15.4 % (11.5-14.5); Red Blood Cell (RBC) Count 5.18 mill/uL (4.70-6.10)
[2020-07-29] MEDS ORDERED: Sodium Chloride 0.9% 100 ML ONE (19:13)
[2020-07-29] MEDS ORDERED: Cefepime 2 GM VIAL ONE (19:13)
[2020-07-29 19:20] LABS: ALT (SGPT) 20 U/L (8-55); AST (SGOT) 14 U/L (5-34); Albumin 3.7 g/dL (3.4-4.8); Alkaline Phosphatase 140 U/L (40-110); Anion Gap 20 mmol/L (10-20); BUN (Urea Nitrogen) 29 mg/dL (8.4-25.7); Bilirubin, Total 0.4 mg/dL (0.2-1.2); Calc. Creatinine Clearance 0 mL/min (70-130); Calcium 9.5 mg/dL (7.8-10.44); Carbon Dioxide 28 mmol/L (23-31); Chloride 92 mmol/L (98-107); Globulin 4.6 g/dL (2.4-3.5); Glucose 128 mg/dL (80-115); Potassium 3.7 mmol/L (3.5-5.1); Protein, Total 8.3 g/dL (5.8-8.1); Sodium 136 mmol/L (136-145)
[2020-07-29 19:49] LABS: SARS-CoV-2 NAA Rapid Test Not Detected (NotDetected)
== END 2020-07-29 21:05 | disposition still patient (30) ==
LOC: BURERS 18:10
DX: A41.9 Sepsis, unspecified organism (principal); J44.1 Chronic obstructive pulmonary disease with (acute) exacerbation; I50.9 Heart failure, unspecified; I11.0 Hypertensive heart disease with heart failure; E78.5 Hyperlipidemia, unspecified; E78.2 Mixed hyperlipidemia; F17.210 Nicotine dependence, cigarettes, uncomplicated; Z79.899 Other long term (current) drug therapy
CPT/HCPCS: 0240U; 71045; 80053; 83605; 83880; 84484; 85025; 87040; 93005; 94760; 96365; 96366; 96368; 99285; 36415; J0692; J3370; J3475; J3490; J7611

== ENCOUNTER 2020-09-26 19:10 | Inpatient (IN) | payer MEDICARE, MEDICAID ==
[2020-09-26] MEDS ORDERED: Acetaminophen 325 MG TAB PO PRN (20:57)
[2020-09-26] MEDS ORDERED: Senokot 8.6 MG TAB PO PRN (20:57)
[2020-09-26] MEDS ORDERED: guaiFENesin ER 600 MG TAB PO PRN (20:57)
[2020-09-26 21:41] VITALS: BMI 27.3
[2020-09-26] MEDS: Mometasone/Formoterol 200/5 60 PUFF INH SCH (21:56)
[2020-09-26] MEDS: Gabapentin 300 MG CAP PO SCH (22:00)
[2020-09-26] MEDS: Apixaban 5 MG TAB PO SCH (22:01)
[2020-09-26] MEDS: Atorvastatin Calcium 10 MG TAB PO SCH (22:02)
[2020-09-26] MEDS: hydrOXYzine 25 MG TAB PO PRN (22:02)
[2020-09-27] MEDS: Apixaban 5 MG TAB PO SCH ×2 (08:07→21:02)
[2020-09-27] MEDS: Gabapentin 300 MG CAP PO SCH ×3 (08:08→21:01)
[2020-09-27] MEDS: Furosemide 20 MG TAB PO SCH (08:08)
[2020-09-27] MEDS: Folic Acid 1 MG TAB PO SCH (08:08)
[2020-09-27] MEDS: Cyanocobalamin (Vitamin B-12) 1,000 MCG TAB PO SCH (08:09)
[2020-09-27] MEDS: Lisinopril 5 MG TAB PO SCH (08:09)
[2020-09-27] MEDS: Ferrous Sulfate 325 MG TAB PO SCH ×2 (08:09→16:47)
[2020-09-27] MEDS: Mometasone/Formoterol 200/5 60 PUFF INH SCH ×2 (08:11→21:02)
[2020-09-27] MEDS: traMADol HCl 50 MG TAB PO PRN (10:41)
[2020-09-27] MEDS ORDERED: HYDROcodone/Acetaminophen 5/325 mg Tablet PO SCH (14:30)
[2020-09-27] MEDS: Acetaminophen 325 MG TAB PO PRN (19:17)
[2020-09-27] MEDS: hydrOXYzine 25 MG TAB PO PRN (19:17)
[2020-09-27] MEDS: Atorvastatin Calcium 10 MG TAB PO SCH (21:02)
[2020-09-28] MEDS: traMADol HCl 50 MG TAB PO PRN ×2 (05:54→14:16)
[2020-09-28] MEDS: Gabapentin 300 MG CAP PO SCH ×3 (09:11→20:53)
[2020-09-28] MEDS: Apixaban 5 MG TAB PO SCH ×2 (09:12→20:55)
[2020-09-28] MEDS: Furosemide 20 MG TAB PO SCH (09:12)
[2020-09-28] MEDS: Lisinopril 5 MG TAB PO SCH (09:13)
[2020-09-28] MEDS: Cyanocobalamin (Vitamin B-12) 1,000 MCG TAB PO SCH (09:13)
[2020-09-28] MEDS: Ferrous Sulfate 325 MG TAB PO SCH ×2 (09:16→17:49)
[2020-09-28] MEDS: Folic Acid 1 MG TAB PO SCH (09:17)
[2020-09-28] MEDS: Mometasone/Formoterol 200/5 60 PUFF INH SCH ×2 (14:18→21:00)
[2020-09-28] MEDS: Acetaminophen 325 MG TAB PO PRN (20:53)
[2020-09-28] MEDS: Atorvastatin Calcium 10 MG TAB PO SCH (20:54)
[2020-09-28] MEDS: hydrOXYzine 25 MG TAB PO PRN (20:56)
[2020-09-29] MEDS: Furosemide 20 MG TAB PO SCH (08:36)
[2020-09-29] MEDS: Apixaban 5 MG TAB PO SCH ×2 (08:36→20:50)
[2020-09-29] MEDS: Folic Acid 1 MG TAB PO SCH (08:36)
[2020-09-29] MEDS: Lisinopril 5 MG TAB PO SCH (08:36)
[2020-09-29] MEDS: Gabapentin 300 MG CAP PO SCH ×3 (08:37→20:51)
[2020-09-29] MEDS: traMADol HCl 50 MG TAB PO PRN (08:38)
[2020-09-29] MEDS: Cyanocobalamin (Vitamin B-12) 1,000 MCG TAB PO SCH (08:38)
[2020-09-29] MEDS: Ferrous Sulfate 325 MG TAB PO SCH ×2 (08:39→18:24)
[2020-09-29] MEDS: Mometasone/Formoterol 200/5 60 PUFF INH SCH ×2 (08:43→20:54)
[2020-09-29] MEDS: HYDROcodone/Acetaminophen 5/325 mg Tablet PO PRN (15:50)
[2020-09-29] MEDS: Acetaminophen 325 MG TAB PO PRN (20:48)
[2020-09-29] MEDS: Atorvastatin Calcium 10 MG TAB PO SCH (20:50)
[2020-09-29] MEDS: hydrOXYzine 25 MG TAB PO PRN (20:51)
[2020-09-30 06:02] LABS: Hemoglobin 8.6 g/dL (14.0-18.0); Platelet Count 92 thou/uL (130-400)
[2020-09-30] MEDS: traMADol HCl 50 MG TAB PO PRN (08:47)
[2020-09-30] MEDS: Furosemide 20 MG TAB PO SCH (08:49)
[2020-09-30] MEDS: Apixaban 5 MG TAB PO SCH ×2 (08:49→20:14)
[2020-09-30] MEDS: Folic Acid 1 MG TAB PO SCH (08:49)
[2020-09-30] MEDS: Cyanocobalamin (Vitamin B-12) 1,000 MCG TAB PO SCH (08:49)
[2020-09-30] MEDS: Lisinopril 5 MG TAB PO SCH (08:49)
[2020-09-30] MEDS: Gabapentin 300 MG CAP PO SCH ×3 (08:54→20:14)
[2020-09-30] MEDS: Ferrous Sulfate 325 MG TAB PO SCH ×2 (08:55→16:55)
[2020-09-30] MEDS: Mometasone/Formoterol 200/5 60 PUFF INH SCH ×2 (08:56→20:18)
[2020-09-30] MEDS: Atorvastatin Calcium 10 MG TAB PO SCH (20:14)
[2020-09-30] MEDS: hydrOXYzine 25 MG TAB PO PRN (20:14)
[2020-09-30] MEDS: Acetaminophen 325 MG TAB PO PRN (20:15)
[2020-10-01] MEDS: Ferrous Sulfate 325 MG TAB PO SCH ×2 (08:03→16:03)
[2020-10-01] MEDS: Furosemide 20 MG TAB PO SCH (08:49)
[2020-10-01] MEDS: Folic Acid 1 MG TAB PO SCH (08:49)
[2020-10-01] MEDS: Gabapentin 300 MG CAP PO SCH ×3 (08:50→20:56)
[2020-10-01] MEDS: Cyanocobalamin (Vitamin B-12) 1,000 MCG TAB PO SCH (08:50)
[2020-10-01] MEDS: Apixaban 5 MG TAB PO SCH ×2 (08:50→20:55)
[2020-10-01] MEDS: Lisinopril 5 MG TAB PO SCH (08:52)
[2020-10-01] MEDS: Mometasone/Formoterol 200/5 60 PUFF INH SCH ×2 (08:53→20:59)
[2020-10-01] MEDS: Triple Antibiotic Oint 1 GM Packet TOP PRN (14:17)
[2020-10-01] MEDS: hydrOXYzine 25 MG TAB PO PRN (20:55)
[2020-10-01] MEDS: Atorvastatin Calcium 10 MG TAB PO SCH (20:55)
[2020-10-01] MEDS: Acetaminophen 325 MG TAB PO PRN (20:56)
[2020-10-01] MEDS ORDERED: Zolpidem Tartrate 5 MG TAB PO PRN (23:14)
[2020-10-02] MEDS: Apixaban 5 MG TAB PO SCH ×2 (08:13→20:32)
[2020-10-02] MEDS: Folic Acid 1 MG TAB PO SCH (08:14)
[2020-10-02] MEDS: Cyanocobalamin (Vitamin B-12) 1,000 MCG TAB PO SCH (08:14)
[2020-10-02] MEDS: Furosemide 20 MG TAB PO SCH (08:14)
[2020-10-02] MEDS: Gabapentin 300 MG CAP PO SCH ×3 (08:14→20:31)
[2020-10-02] MEDS: Lisinopril 5 MG TAB PO SCH (08:15)
[2020-10-02] MEDS: Ferrous Sulfate 325 MG TAB PO SCH ×2 (08:18→16:37)
[2020-10-02] MEDS: Mometasone/Formoterol 200/5 60 PUFF INH SCH ×2 (08:57→20:39)
[2020-10-02] MEDS: Triple Antibiotic Oint 1 GM Packet TOP PRN (14:46)
[2020-10-02] MEDS: Atorvastatin Calcium 10 MG TAB PO SCH (20:31)
[2020-10-02] MEDS: Zolpidem Tartrate 5 MG TAB PO PRN (20:32)
[2020-10-03] MEDS: HYDROcodone/Acetaminophen 5/325 mg Tablet PO PRN ×2 (00:29→23:26)
[2020-10-03 05:16] LABS: #Basophils 0.1 thou/uL (0.0-0.2); #Eosinphils 0.2 thou/uL (0.0-0.7); #Lymphocytes 1.5 thou/uL (1.20-3.40); #Monocytes 0.5 thou/uL (0.11-0.59); #Neutrophils 7.2 thou/uL (1.40-6.50); %Basophils 0.7 % (0.0-1.0); %Eosinophils 1.9 % (0.0-10.0); %Lymphocytes 16.2 % (21.0-51.0); %Monocytes 5.3 % (0.0-10.0); %Neutrophils 75.9 % (42.0-75.0); Hemoglobin 9.2 g/dL (14.0-18.0); Mean Corpuscular HGB CONC 30.7 g/dL (32.0-36.0); Mean Corpuscular Hemoglobin 26.6 pg (27.0-31.0); Mean Corpuscular Volume 86.7 fL (78.0-98.0); Mean Platelet Volume 8.8 fL (7.4-10.4); Platelet Count 103 thou/uL (130-400); RBC Distribution Width 18.6 % (11.5-14.5); Red Blood Cell (RBC) Count 3.46 mill/uL (4.70-6.10); White Blood Cell (WBC) Count 9.4 thou/uL (4.8-10.8)
[2020-10-03 05:36] LABS: Anisocytosis SLIGHT = 6-15 cells (100X) (0-5/hpf); MDiff Complete? YES; Platelet Morphology Comment Appears Decreased
[2020-10-03] MEDS: Ferrous Sulfate 325 MG TAB PO SCH ×2 (08:36→16:18)
[2020-10-03] MEDS: Cyanocobalamin (Vitamin B-12) 1,000 MCG TAB PO SCH (08:40)
[2020-10-03] MEDS: Apixaban 5 MG TAB PO SCH ×2 (08:40→21:23)
[2020-10-03] MEDS: Furosemide 20 MG TAB PO SCH (08:40)
[2020-10-03] MEDS: Folic Acid 1 MG TAB PO SCH (08:41)
[2020-10-03] MEDS: Gabapentin 300 MG CAP PO SCH ×3 (08:41→21:23)
[2020-10-03] MEDS: Lisinopril 5 MG TAB PO SCH (08:42)
[2020-10-03] MEDS: Mometasone/Formoterol 200/5 60 PUFF INH SCH ×2 (08:54→21:31)
[2020-10-03] MEDS: hydrOXYzine 25 MG TAB PO PRN ×2 (08:58→21:23)
[2020-10-03] MEDS: Triple Antibiotic Oint 1 GM Packet TOP PRN (15:02)
[2020-10-03] MEDS: Atorvastatin Calcium 10 MG TAB PO SCH (21:23)
[2020-10-04] MEDS: Mometasone/Formoterol 200/5 60 PUFF INH SCH ×2 (08:42→20:42)
[2020-10-04] MEDS: Apixaban 5 MG TAB PO SCH ×2 (08:46→20:38)
[2020-10-04] MEDS: Furosemide 20 MG TAB PO SCH (08:46)
[2020-10-04] MEDS: Cyanocobalamin (Vitamin B-12) 1,000 MCG TAB PO SCH (08:46)
[2020-10-04] MEDS: Folic Acid 1 MG TAB PO SCH (08:46)
[2020-10-04] MEDS: Ferrous Sulfate 325 MG TAB PO SCH ×2 (08:47→16:45)
[2020-10-04] MEDS: Gabapentin 300 MG CAP PO SCH ×3 (08:47→20:39)
[2020-10-04] MEDS: Lisinopril 5 MG TAB PO SCH (08:48)
[2020-10-04] MEDS: hydrOXYzine 25 MG TAB PO PRN ×2 (08:48→20:38)
[2020-10-04] MEDS: Triple Antibiotic Oint 1 GM Packet TOP PRN (15:02)
[2020-10-04] MEDS: Atorvastatin Calcium 10 MG TAB PO SCH (20:38)
[2020-10-05] MEDS: Cyanocobalamin (Vitamin B-12) 1,000 MCG TAB PO SCH (09:38)
[2020-10-05] MEDS: Gabapentin 300 MG CAP PO SCH ×3 (09:39→20:45)
[2020-10-05] MEDS: Apixaban 5 MG TAB PO SCH ×2 (09:39→20:45)
[2020-10-05] MEDS: Lisinopril 5 MG TAB PO SCH (09:40)
[2020-10-05] MEDS: Furosemide 20 MG TAB PO SCH (09:41)
[2020-10-05] MEDS: Folic Acid 1 MG TAB PO SCH (09:41)
[2020-10-05] MEDS: Ferrous Sulfate 325 MG TAB PO SCH ×2 (09:42→17:43)
[2020-10-05] MEDS: Mometasone/Formoterol 200/5 60 PUFF INH SCH ×2 (09:43→20:47)
[2020-10-05] MEDS: HYDROcodone/Acetaminophen 5/325 mg Tablet PO PRN (15:04)
[2020-10-05] MEDS ORDERED: COVID-19 VACC, MRNA(MODERNA)/PF 100 MCG/0.5 ML VIAL IM ONE (17:00)
[2020-10-05] MEDS: Atorvastatin Calcium 10 MG TAB PO SCH (20:45)
[2020-10-06] MEDS: Lisinopril 5 MG TAB PO SCH (09:23)
[2020-10-06] MEDS: Cyanocobalamin (Vitamin B-12) 1,000 MCG TAB PO SCH (09:23)
[2020-10-06] MEDS: Folic Acid 1 MG TAB PO SCH (09:23)
[2020-10-06] MEDS: Apixaban 5 MG TAB PO SCH ×2 (09:23→21:50)
[2020-10-06] MEDS: Gabapentin 300 MG CAP PO SCH ×3 (09:25→21:49)
[2020-10-06] MEDS: Furosemide 20 MG TAB PO SCH (09:27)
[2020-10-06] MEDS: Ferrous Sulfate 325 MG TAB PO SCH ×2 (10:02→17:20)
[2020-10-06] MEDS: Mometasone/Formoterol 200/5 60 PUFF INH SCH ×2 (10:07→21:50)
[2020-10-06] MEDS: HYDROcodone/Acetaminophen 5/325 mg Tablet PO PRN (15:35)
[2020-10-06] MEDS: Atorvastatin Calcium 10 MG TAB PO SCH (21:50)
[2020-10-06] MEDS: Zolpidem Tartrate 5 MG TAB PO PRN (22:01)
[2020-10-06] MEDS: hydrOXYzine 25 MG TAB PO PRN (22:01)
[2020-10-07] MEDS: traMADol HCl 50 MG TAB PO PRN ×2 (05:25→21:15)
[2020-10-07] MEDS: Folic Acid 1 MG TAB PO SCH (08:53)
[2020-10-07] MEDS: Gabapentin 300 MG CAP PO SCH ×3 (08:53→21:14)
[2020-10-07] MEDS: Cyanocobalamin (Vitamin B-12) 1,000 MCG TAB PO SCH (08:54)
[2020-10-07] MEDS: Lisinopril 5 MG TAB PO SCH (08:54)
[2020-10-07] MEDS: Apixaban 5 MG TAB PO SCH ×2 (08:56→21:15)
[2020-10-07] MEDS: Furosemide 20 MG TAB PO SCH (08:56)
[2020-10-07] MEDS: Ferrous Sulfate 325 MG TAB PO SCH ×2 (08:57→19:25)
[2020-10-07] MEDS: Mometasone/Formoterol 200/5 60 PUFF INH SCH ×2 (08:59→21:18)
[2020-10-07] MEDS: Atorvastatin Calcium 10 MG TAB PO SCH (21:15)
[2020-10-07] MEDS: hydrOXYzine 25 MG TAB PO PRN (22:14)
[2020-10-07] MEDS: Zolpidem Tartrate 5 MG TAB PO PRN (22:14)
[2020-10-07] MEDS: Triple Antibiotic Oint 1 GM Packet TOP PRN (22:17)
[2020-10-08] MEDS: Apixaban 5 MG TAB PO SCH ×2 (09:47→20:39)
[2020-10-08] MEDS: Cyanocobalamin (Vitamin B-12) 1,000 MCG TAB PO SCH (09:47)
[2020-10-08] MEDS: Lisinopril 5 MG TAB PO SCH (09:48)
[2020-10-08] MEDS: Gabapentin 300 MG CAP PO SCH ×3 (09:48→20:40)
[2020-10-08] MEDS: Folic Acid 1 MG TAB PO SCH (09:49)
[2020-10-08] MEDS: Furosemide 20 MG TAB PO SCH (09:49)
[2020-10-08] MEDS: Mometasone/Formoterol 200/5 60 PUFF INH SCH ×2 (09:49→20:41)
[2020-10-08] MEDS: Ferrous Sulfate 325 MG TAB PO SCH ×2 (09:50→20:19)
[2020-10-08] MEDS: Triple Antibiotic Oint 1 GM Packet TOP PRN (16:13)
[2020-10-08] MEDS: Atorvastatin Calcium 10 MG TAB PO SCH (20:39)
[2020-10-08] MEDS: Acetaminophen 325 MG TAB PO PRN (20:40)
[2020-10-08] MEDS: traMADol HCl 50 MG TAB PO PRN (20:41)
[2020-10-09] MEDS: Cyanocobalamin (Vitamin B-12) 1,000 MCG TAB PO SCH (08:18)
[2020-10-09] MEDS: Apixaban 5 MG TAB PO SCH ×2 (08:18→20:57)
[2020-10-09] MEDS: Furosemide 20 MG TAB PO SCH (08:19)
[2020-10-09] MEDS: Lisinopril 5 MG TAB PO SCH (08:19)
[2020-10-09] MEDS: Folic Acid 1 MG TAB PO SCH (08:19)
[2020-10-09] MEDS: Gabapentin 300 MG CAP PO SCH ×3 (08:19→20:58)
[2020-10-09] MEDS: Mometasone/Formoterol 200/5 60 PUFF INH SCH ×2 (08:21→20:58)
[2020-10-09] MEDS: Ferrous Sulfate 325 MG TAB PO SCH ×2 (08:22→17:27)
[2020-10-09] MEDS: HYDROcodone/Acetaminophen 5/325 mg Tablet PO PRN (13:25)
[2020-10-09] MEDS: traMADol HCl 50 MG TAB PO PRN (17:44)
[2020-10-09] MEDS: Atorvastatin Calcium 10 MG TAB PO SCH (20:58)
[2020-10-10 06:21] LABS: Hemoglobin 10.1 g/dL (14.0-18.0); Mean Corpuscular Hemoglobin 26.6 pg (27.0-31.0); Mean Corpuscular Volume 85.7 fL (78.0-98.0); Mean Platelet Volume 9.9 fL (7.4-10.4); Platelet Count 87 thou/uL (130-400); RBC Distribution Width 18.3 % (11.5-14.5); Red Blood Cell (RBC) Count 3.78 mill/uL (4.70-6.10); White Blood Cell (WBC) Count 6.8 thou/uL (4.8-10.8)
[2020-10-10 06:31] LABS: ALT (SGPT) 12 U/L (8-55); AST (SGOT) 10 U/L (5-34); Albumin 2.8 g/dL (3.4-4.8); Alkaline Phosphatase 135 U/L (40-110); Anion Gap 12 mmol/L (10-20); BUN (Urea Nitrogen) 27 mg/dL (8.4-25.7); Bilirubin, Total 0.2 mg/dL (0.2-1.2); Calc. Creatinine Clearance 100 mL/min (70-130); Calcium 8.3 mg/dL (7.8-10.44); Carbon Dioxide 26 mmol/L (23-31); Chloride 105 mmol/L (98-107); Globulin 3.7 g/dL (2.4-3.5); Glucose 104 mg/dL (83-110); Potassium 4.3 mmol/L (3.5-5.1); Protein, Total 6.5 g/dL (5.8-8.1); Sodium 139 mmol/L (136-145)
[2020-10-10 06:47] LABS: #Basophils 0.1 thou/uL (0.0-0.2); #Eosinphils 0.3 thou/uL (0.0-0.7); #Lymphocytes 1.6 thou/uL (1.20-3.40); #Monocytes 0.6 thou/uL (0.11-0.59); #Neutrophils 4.2 thou/uL (1.40-6.50); %Basophils 0.8 % (0.0-1.0); %Eosinophils 3.9 % (0.0-10.0); %Lymphocytes 23.8 % (21.0-51.0); %Monocytes 9.4 % (0.0-10.0); %Neutrophils 62.1 % (42.0-75.0); Anisocytosis SLIGHT = 6-15 cells (100X) (0-5/hpf); MDiff Complete? YES; Ovalocytes SLIGHT = 2-5 cells (100X) (0-1/hpf); Platelet Morphology Comment Appears Decreased; Poikilocytosis SLIGHT = 6-15 cells (100X) (0-5/hpf); Tear Drops SLIGHT = 2-5 cells (100X) (0-1/hpf)
[2020-10-10] MEDS: Ferrous Sulfate 325 MG TAB PO SCH ×2 (09:07→17:21)
[2020-10-10] MEDS: Furosemide 20 MG TAB PO SCH (09:08)
[2020-10-10] MEDS: Cyanocobalamin (Vitamin B-12) 1,000 MCG TAB PO SCH (09:08)
[2020-10-10] MEDS: Folic Acid 1 MG TAB PO SCH (09:08)
[2020-10-10] MEDS: Gabapentin 300 MG CAP PO SCH ×3 (09:09→20:54)
[2020-10-10] MEDS: Apixaban 5 MG TAB PO SCH ×2 (09:10→20:55)
[2020-10-10] MEDS: Lisinopril 5 MG TAB PO SCH (09:10)
[2020-10-10] MEDS: Mometasone/Formoterol 200/5 60 PUFF INH SCH ×2 (09:11→22:21)
[2020-10-10] MEDS: Atorvastatin Calcium 10 MG TAB PO SCH (20:55)
[2020-10-10] MEDS: Zolpidem Tartrate 5 MG TAB PO PRN (20:55)
[2020-10-11] MEDS: Ferrous Sulfate 325 MG TAB PO SCH ×2 (09:35→17:06)
[2020-10-11] MEDS: Lisinopril 5 MG TAB PO SCH (09:36)
[2020-10-11] MEDS: Apixaban 5 MG TAB PO SCH ×2 (09:36→21:20)
[2020-10-11] MEDS: Cyanocobalamin (Vitamin B-12) 1,000 MCG TAB PO SCH (09:36)
[2020-10-11] MEDS: Gabapentin 300 MG CAP PO SCH ×3 (09:36→21:20)
[2020-10-11] MEDS: Furosemide 20 MG TAB PO SCH (09:37)
[2020-10-11] MEDS: Mometasone/Formoterol 200/5 60 PUFF INH SCH ×2 (09:37→21:21)
[2020-10-11] MEDS: Folic Acid 1 MG TAB PO SCH ×2 (09:50→09:53)
[2020-10-11] MEDS: HYDROcodone/Acetaminophen 5/325 mg Tablet PO PRN (11:38)
[2020-10-11] MEDS: traMADol HCl 50 MG TAB PO PRN (21:17)
[2020-10-11] MEDS: Acetaminophen 325 MG TAB PO PRN (21:17)
[2020-10-11] MEDS: Atorvastatin Calcium 10 MG TAB PO SCH (21:20)
[2020-10-11] MEDS: Triple Antibiotic Oint 1 GM Packet TOP PRN (21:21)
[2020-10-12] MEDS: traMADol HCl 50 MG TAB PO PRN (09:04)
[2020-10-12] MEDS: Cyanocobalamin (Vitamin B-12) 1,000 MCG TAB PO SCH (09:05)
[2020-10-12] MEDS: Lisinopril 5 MG TAB PO SCH (09:06)
[2020-10-12] MEDS: Gabapentin 300 MG CAP PO SCH ×3 (09:07→22:16)
[2020-10-12] MEDS: Folic Acid 1 MG TAB PO SCH (09:07)
[2020-10-12] MEDS: Furosemide 20 MG TAB PO SCH (09:07)
[2020-10-12] MEDS: Mometasone/Formoterol 200/5 60 PUFF INH SCH ×2 (09:08→22:17)
[2020-10-12] MEDS: Apixaban 5 MG TAB PO SCH ×2 (09:08→22:16)
[2020-10-12] MEDS: Ferrous Sulfate 325 MG TAB PO SCH ×2 (09:08→17:44)
[2020-10-12] MEDS: HYDROcodone/Acetaminophen 5/325 mg Tablet PO PRN (14:45)
[2020-10-12] MEDS: Atorvastatin Calcium 10 MG TAB PO SCH (22:16)
[2020-10-12] MEDS ORDERED: Dextrose 5% in Water 1,000 ML IV PRN (22:30)
[2020-10-12] MEDS ORDERED: Insulin Regular 300 UNITS/3 ML VIAL SC PRN ×2 (22:30)
[2020-10-12] MEDS ORDERED: Dextrose 50% Abboject 50 ML SYRINGE IVP PRN (22:30)
[2020-10-13 05:20] LABS: Hemoglobin 11.5 g/dL (14.0-18.0); Platelet Count 88 thou/uL (130-400)
[2020-10-13 06:35] VITALS: TEMP 97.8
[2020-10-13] MEDS ORDERED: Acetaminophen/Codeine 30-300mg Tablet PO PRN (07:44)
[2020-10-13] MEDS: Cyanocobalamin (Vitamin B-12) 1,000 MCG TAB PO SCH (08:25)
[2020-10-13] MEDS: Ferrous Sulfate 325 MG TAB PO SCH (08:25)
[2020-10-13] MEDS: Gabapentin 300 MG CAP PO SCH (08:25)
[2020-10-13] MEDS: Folic Acid 1 MG TAB PO SCH (08:25)
[2020-10-13] MEDS: Lisinopril 5 MG TAB PO SCH (08:26)
[2020-10-13] MEDS: Apixaban 5 MG TAB PO SCH (08:26)
[2020-10-13] MEDS: Furosemide 20 MG TAB PO SCH (08:26)
[2020-10-13 08:28] VITALS: BP 109/69
[2020-10-13] MEDS: Mometasone/Formoterol 200/5 60 PUFF INH SCH (09:50)
== END 2020-10-13 10:10 | disposition home or self-care (01) | DRG 560 ==
LOC: BURMED 20:45
PROVIDERS: ADMIT Family Medicine; ATTEND Family Medicine
DX: Z47.81 Encounter for orthopedic aftercare following surgical amputation (principal); D62 Acute posthemorrhagic anemia; I50.42 Chronic combined systolic (congestive) and diastolic (congestive) heart failure; G47.00 Insomnia, unspecified; J44.9 Chronic obstructive pulmonary disease, unspecified; Z89.512 Acquired absence of left leg below knee
CPT/HCPCS: 0012A; 36415; 80053; 82565; 85014; 85018; 85025; 85049; 91301; 94664

== ENCOUNTER 2020-10-30 17:36 | Emergency (ER) | payer MEDICARE, MEDICAID ==
[2020-10-30] MEDS ORDERED: Morphine 4 MG/ML VIAL ONE (18:12)
[2020-10-30 18:41] LABS: ALT (SGPT) 10 U/L (8-55); AST (SGOT) 10 U/L (5-34); Alkaline Phosphatase 122 U/L (40-110); Anion Gap 14 mmol/L (10-20); BUN (Urea Nitrogen) 16 mg/dL (8.4-25.7); Bilirubin, Total 0.4 mg/dL (0.2-1.2); Calc. Creatinine Clearance 0 mL/min (70-130); Calcium 8.4 mg/dL (7.8-10.44); Carbon Dioxide 27 mmol/L (23-31); Chloride 102 mmol/L (98-107); Globulin 4.1 g/dL (2.4-3.5); Glucose 120 mg/dL (83-110); Potassium 3.4 mmol/L (3.5-5.1); Protein, Total 7.1 g/dL (5.8-8.1); Sodium 140 mmol/L (136-145)
[2020-10-30 18:42] LABS: #Basophils 0.1 thou/uL (0.0-0.2); #Eosinphils 0.2 thou/uL (0.0-0.7); #Lymphocytes 1.4 thou/uL (1.20-3.40); #Monocytes 0.7 thou/uL (0.11-0.59); #Neutrophils 6.3 thou/uL (1.40-6.50); %Basophils 0.6 % (0.0-1.0); %Eosinophils 2.7 % (0.0-10.0); %Lymphocytes 16.4 % (21.0-51.0); %Monocytes 7.8 % (0.0-10.0); %Neutrophils 72.6 % (42.0-75.0); Hemoglobin 10.9 g/dL (14.0-18.0); Mean Corpuscular HGB CONC 31.6 g/dL (32.0-36.0); Mean Corpuscular Hemoglobin 26.3 pg (27.0-31.0); Mean Corpuscular Volume 83.1 fL (78.0-98.0); Mean Platelet Volume 9.9 fL (7.4-10.4); Platelet Count 92 thou/uL (130-400); Platelet Morphology Comment Appears Decreased; RBC Distribution Width 15.4 % (11.5-14.5); Red Blood Cell (RBC) Count 4.13 mill/uL (4.70-6.10); White Blood Cell (WBC) Count 8.6 thou/uL (4.8-10.8)
[2020-10-30 18:44] LABS: INR-International Normal Ratio 1.4; Prothrombin Time 17.5 sec (12.0-14.7)
== END 2020-10-30 19:45 | disposition home or self-care (01) ==
LOC: BURERS 17:36
DX: S70.02XA Contusion of left hip, initial encounter (principal); I25.10 Atherosclerotic heart disease of native coronary artery without angina pectoris; I11.0 Hypertensive heart disease with heart failure; I50.9 Heart failure, unspecified; E78.00 Pure hypercholesterolemia, unspecified; F17.210 Nicotine dependence, cigarettes, uncomplicated; Z79.01 Long term (current) use of anticoagulants; Z79.899 Other long term (current) drug therapy; W05.0XXA Fall from non-moving wheelchair, initial encounter
CPT/HCPCS: 74176; 80053; 85025; 85610; 96374; J2270

== ENCOUNTER 2020-12-30 14:02 | Emergency (ER) | payer MEDICARE, MEDICAID ==
[2020-12-30] MEDS ORDERED: Ondansetron PF 4 MG/2 ML Vial ONE ×2 (14:42→18:36)
[2020-12-30] MEDS ORDERED: Morphine 2 MG/ML VIAL ONE ×2 (14:42→18:35)
[2020-12-30] MEDS ORDERED: Ketorolac Tromethamine 30 MG/ML VIAL ONE (14:58)
[2020-12-30 16:40] LABS: ALT (SGPT) Less than 7 U/L (8-55); AST (SGOT) 12 U/L (5-34); Albumin 2.9 g/dL (3.4-4.8); Alkaline Phosphatase 114 U/L (40-110); Anion Gap 15 mmol/L (10-20); BUN (Urea Nitrogen) 18 mg/dL (8.4-25.7); Bilirubin, Total 0.5 mg/dL (0.2-1.2); Calc. Creatinine Clearance 0 mL/min (70-130); Calcium 8.7 mg/dL (7.8-10.44); Carbon Dioxide 26 mmol/L (23-31); Chloride 99 mmol/L (98-107); Globulin 4.1 g/dL (2.4-3.5); Glucose 117 mg/dL (83-110); Potassium 4.3 mmol/L (3.5-5.1); Sodium 136 mmol/L (136-145)
[2020-12-30 18:01] LABS: SARS-CoV-2 NAA Rapid Test Not Detected (NotDetected)
[2020-12-30 18:04] LABS: White Blood Cell (WBC) Count 6.7 thou/uL (4.8-10.8)
[2020-12-30 18:05] LABS: Mean Corpuscular HGB CONC 29.1 g/dL (32.0-36.0); Mean Corpuscular Hemoglobin 22.5 pg (27.0-31.0); Mean Corpuscular Volume 77.2 fL (78.0-98.0); Mean Platelet Volume 8.7 fL (7.4-10.4); Platelet Count 116 thou/uL (130-400); RBC Distribution Width 16.1 % (11.5-14.5); Red Blood Cell (RBC) Count 4.02 mill/uL (4.70-6.10)
[2020-12-30 18:06] LABS: #Eosinphils 0.2 thou/uL (0.0-0.7); #Monocytes 0.4 thou/uL (0.11-0.59); #Neutrophils 5.1 thou/uL (1.40-6.50); %Basophils 0.5 % (0.0-1.0); %Eosinophils 2.5 % (0.0-10.0); %Lymphocytes 14.6 % (21.0-51.0); %Monocytes 6.4 % (0.0-10.0)
[2020-12-30 18:07] LABS: Hypochromia MODERATE=16-30 cells (100X) (0-5/hpf); MDiff Complete? YES; Microcytosis SLIGHT = 6-15 cells (100X) (0-5/hpf)
[2020-12-30 18:08] LABS: Platelet Morphology Comment Appears Decreased
[2020-12-30] MEDS ORDERED: Furosemide 40 MG/4 ML VIAL ONE (18:36)
== END 2020-12-30 19:22 | disposition short-term general hospital (02) ==
LOC: BURERS 14:02
DX: S72.001A Fracture of unspecified part of neck of right femur, initial encounter for closed fracture (principal); J44.9 Chronic obstructive pulmonary disease, unspecified; I11.0 Hypertensive heart disease with heart failure; I50.9 Heart failure, unspecified; Z20.822 Contact with and (suspected) exposure to COVID-19; E78.5 Hyperlipidemia, unspecified; F17.210 Nicotine dependence, cigarettes, uncomplicated; Z79.899 Other long term (current) drug therapy; W19.XXXA Unspecified fall, initial encounter
CPT/HCPCS: 71045; 72131; 72192; 80053; 83880; 85025; 94640; 96374; 96375; 96376; J1885; J1940; J2270; J2405; J7620; U0002

== ENCOUNTER 2021-01-03 16:15 | Inpatient (IN) | payer MEDICARE, MEDICAID ==
[2021-01-03] MEDS ORDERED: Ondansetron ODT 4 MG TAB PO PRN (17:11)
[2021-01-03] MEDS ORDERED: Senokot S 8.6-50 MG TAB PO PRN (17:16)
[2021-01-03] MEDS ORDERED: Bisacodyl 5 MG TAB PO PRN (17:17)
[2021-01-03 17:20] VITALS: BMI 28.9
[2021-01-03] MEDS ORDERED: Zolpidem Tartrate 5 MG TAB PO PRN ×2 (17:20→17:37)
[2021-01-03] MEDS ORDERED: Triple Antibiotic Oint 1 GM Packet TOP PRN (17:37)
[2021-01-03] MEDS ORDERED: traMADol HCl 50 MG TAB PO PRN (17:41)
[2021-01-03] MEDS ORDERED: Nicotine 14 MG PATCH TOP SCH (18:00)
[2021-01-03] MEDS: Apixaban 5 MG TAB PO SCH (20:45)
[2021-01-03] MEDS: Atorvastatin Calcium 10 MG TAB PO SCH (20:45)
[2021-01-03] MEDS: Famotidine 20 MG TAB PO SCH (20:45)
[2021-01-03] MEDS: traMADol HCl 50 MG TAB PO PRN (20:46)
[2021-01-03] MEDS: Gabapentin 300 MG CAP PO SCH (20:47)
[2021-01-03] MEDS: Mometasone/Formoterol 200/5 60 PUFF INH SCH (20:48)
[2021-01-03] MEDS ORDERED: Apixaban 5 MG TAB PO SCH (21:00)
[2021-01-04] MEDS: traMADol HCl 50 MG TAB PO PRN ×3 (06:01→18:50)
[2021-01-04] MEDS ORDERED: Furosemide 20 MG TAB PO SCH (09:00)
[2021-01-04] MEDS ORDERED: FLU VACC QS2021-22(65YR UP)/PF 240 MCG/0.7 ML SYRINGE IM ONE (09:00)
[2021-01-04] MEDS: Lisinopril 5 MG TAB PO SCH (09:15)
[2021-01-04] MEDS: Folic Acid 1 MG TAB PO SCH (09:15)
[2021-01-04] MEDS: Apixaban 5 MG TAB PO SCH ×3 (09:16→22:20)
[2021-01-04] MEDS: Gabapentin 300 MG CAP PO SCH ×4 (09:17→22:18)
[2021-01-04] MEDS: Cyanocobalamin (Vitamin B-12) 1,000 MCG TAB PO SCH (09:17)
[2021-01-04] MEDS: Ferrous Sulfate 325 MG TAB PO SCH ×2 (09:18→17:07)
[2021-01-04] MEDS: Mometasone/Formoterol 200/5 60 PUFF INH SCH ×3 (11:03→22:21)
[2021-01-04] MEDS ORDERED: Melatonin 3 MG TAB PO PRN (16:41)
[2021-01-04] MEDS: Furosemide 20 MG TAB PO SCH (17:06)
[2021-01-04] MEDS: Atorvastatin Calcium 10 MG TAB PO SCH ×2 (20:03→22:20)
[2021-01-04] MEDS: Famotidine 20 MG TAB PO SCH ×2 (20:03→22:21)
[2021-01-05 05:03] LABS: Hemoglobin 9.1 g/dL (14.0-18.0); Platelet Count 128 thou/uL (130-400)
[2021-01-05 05:13] LABS: Anion Gap 12 mmol/L (10-20); BUN (Urea Nitrogen) 29 mg/dL (8.4-25.7); Calc. Creatinine Clearance 76 mL/min (70-130); Calcium 8.2 mg/dL (7.8-10.44); Carbon Dioxide 29 mmol/L (23-31); Chloride 103 mmol/L (98-107); Glucose 93 mg/dL (83-110); Potassium 4.2 mmol/L (3.5-5.1); Sodium 140 mmol/L (136-145)
[2021-01-05] MEDS: Furosemide 20 MG TAB PO SCH ×2 (05:19→18:30)
[2021-01-05] MEDS: Apixaban 5 MG TAB PO SCH ×3 (09:38→20:27)
[2021-01-05] MEDS: Gabapentin 300 MG CAP PO SCH ×3 (09:38→20:28)
[2021-01-05] MEDS: Cyanocobalamin (Vitamin B-12) 1,000 MCG TAB PO SCH (09:38)
[2021-01-05] MEDS: Folic Acid 1 MG TAB PO SCH (09:39)
[2021-01-05] MEDS: Ferrous Sulfate 325 MG TAB PO SCH ×3 (09:40→18:13)
[2021-01-05] MEDS: Lisinopril 5 MG TAB PO SCH (09:43)
[2021-01-05] MEDS: Mometasone/Formoterol 200/5 60 PUFF INH SCH ×2 (09:47→20:42)
[2021-01-05] MEDS: traMADol HCl 50 MG TAB PO PRN (10:20)
[2021-01-05] MEDS: Acetaminophen 325 MG TAB PO PRN (15:18)
[2021-01-05] MEDS: Famotidine 20 MG TAB PO SCH (20:27)
[2021-01-05] MEDS: Atorvastatin Calcium 10 MG TAB PO SCH (20:27)
[2021-01-06] MEDS: Furosemide 20 MG TAB PO SCH ×2 (05:22→18:32)
[2021-01-06] MEDS: traMADol HCl 50 MG TAB PO PRN ×2 (09:19→15:03)
[2021-01-06] MEDS: Folic Acid 1 MG TAB PO SCH (09:21)
[2021-01-06] MEDS: Cyanocobalamin (Vitamin B-12) 1,000 MCG TAB PO SCH (09:21)
[2021-01-06] MEDS: Lisinopril 5 MG TAB PO SCH (09:21)
[2021-01-06] MEDS: Gabapentin 300 MG CAP PO SCH ×3 (09:23→20:21)
[2021-01-06] MEDS: Apixaban 5 MG TAB PO SCH ×2 (09:23→20:20)
[2021-01-06] MEDS: Ferrous Sulfate 325 MG TAB PO SCH (09:24)
[2021-01-06] MEDS: Mometasone/Formoterol 200/5 60 PUFF INH SCH ×2 (09:26→20:57)
[2021-01-06] MEDS: Atorvastatin Calcium 10 MG TAB PO SCH (20:20)
[2021-01-06] MEDS: Famotidine 20 MG TAB PO SCH (20:21)
[2021-01-07] MEDS: Furosemide 20 MG TAB PO SCH ×2 (05:02→16:18)
[2021-01-07] MEDS: Ferrous Sulfate 325 MG TAB PO SCH ×2 (09:05→18:33)
[2021-01-07] MEDS: Mometasone/Formoterol 200/5 60 PUFF INH SCH ×2 (09:08→21:20)
[2021-01-07] MEDS: Cyanocobalamin (Vitamin B-12) 1,000 MCG TAB PO SCH (09:11)
[2021-01-07] MEDS: Lisinopril 5 MG TAB PO SCH (09:11)
[2021-01-07] MEDS: Gabapentin 300 MG CAP PO SCH ×3 (09:12→20:24)
[2021-01-07] MEDS: Apixaban 5 MG TAB PO SCH ×2 (09:13→20:25)
[2021-01-07] MEDS: Folic Acid 1 MG TAB PO SCH (09:13)
[2021-01-07] MEDS: traMADol HCl 50 MG TAB PO PRN ×2 (09:25→16:19)
[2021-01-07] MEDS: Famotidine 20 MG TAB PO SCH (20:24)
[2021-01-07] MEDS: Atorvastatin Calcium 10 MG TAB PO SCH (20:25)
[2021-01-08] MEDS: Furosemide 20 MG TAB PO SCH ×2 (05:33→17:30)
[2021-01-08 07:19] LABS: Hemoglobin 9.2 g/dL (14.0-18.0); Platelet Count 83 thou/uL (130-400)
[2021-01-08] MEDS: Lisinopril 5 MG TAB PO SCH (09:00)
[2021-01-08] MEDS: Cyanocobalamin (Vitamin B-12) 1,000 MCG TAB PO SCH (09:02)
[2021-01-08] MEDS: Apixaban 5 MG TAB PO SCH ×2 (09:02→20:49)
[2021-01-08] MEDS: Folic Acid 1 MG TAB PO SCH (09:02)
[2021-01-08] MEDS: Gabapentin 300 MG CAP PO SCH ×3 (09:03→20:49)
[2021-01-08] MEDS: Mometasone/Formoterol 200/5 60 PUFF INH SCH ×2 (09:08→20:50)
[2021-01-08] MEDS: Ferrous Sulfate 325 MG TAB PO SCH ×2 (11:16→18:08)
[2021-01-08] MEDS: Famotidine 20 MG TAB PO SCH (20:49)
[2021-01-08] MEDS: Atorvastatin Calcium 10 MG TAB PO SCH (20:54)
[2021-01-09] MEDS: Furosemide 20 MG TAB PO SCH ×2 (05:46→17:18)
[2021-01-09] MEDS: Cyanocobalamin (Vitamin B-12) 1,000 MCG TAB PO SCH (08:53)
[2021-01-09] MEDS: Lisinopril 5 MG TAB PO SCH (08:53)
[2021-01-09] MEDS: Gabapentin 300 MG CAP PO SCH ×3 (08:54→20:19)
[2021-01-09] MEDS: Ferrous Sulfate 325 MG TAB PO SCH ×2 (08:54→17:18)
[2021-01-09] MEDS: Apixaban 5 MG TAB PO SCH ×2 (08:55→20:19)
[2021-01-09] MEDS: traMADol HCl 50 MG TAB PO PRN ×2 (08:55→20:20)
[2021-01-09] MEDS: Folic Acid 1 MG TAB PO SCH (08:55)
[2021-01-09] MEDS: Mometasone/Formoterol 200/5 60 PUFF INH SCH ×2 (09:00→20:36)
[2021-01-09 14:28] LABS: SARS-CoV-2 PCR by NAA Not Detected (NotDetected)
[2021-01-09] MEDS: Atorvastatin Calcium 10 MG TAB PO SCH (20:19)
[2021-01-09] MEDS: Famotidine 20 MG TAB PO SCH (20:19)
[2021-01-10] MEDS: Furosemide 20 MG TAB PO SCH (05:19)
[2021-01-10] MEDS: Mometasone/Formoterol 200/5 60 PUFF INH SCH ×2 (09:14→20:46)
[2021-01-10] MEDS: Lisinopril 5 MG TAB PO SCH (09:15)
[2021-01-10] MEDS: Cyanocobalamin (Vitamin B-12) 1,000 MCG TAB PO SCH (09:15)
[2021-01-10] MEDS: Folic Acid 1 MG TAB PO SCH (09:17)
[2021-01-10] MEDS: Gabapentin 300 MG CAP PO SCH ×3 (09:17→20:46)
[2021-01-10] MEDS: Apixaban 5 MG TAB PO SCH ×2 (09:17→20:46)
[2021-01-10] MEDS: Ferrous Sulfate 325 MG TAB PO SCH ×2 (09:18→15:53)
[2021-01-10] MEDS: traMADol HCl 50 MG TAB PO PRN ×2 (10:18→16:35)
[2021-01-10] MEDS: Famotidine 20 MG TAB PO SCH (20:45)
[2021-01-10] MEDS: Atorvastatin Calcium 10 MG TAB PO SCH (20:45)
[2021-01-11 06:36] LABS: Hemoglobin 8.4 g/dL (14.0-18.0); Platelet Count 64 thou/uL (130-400)
[2021-01-11] MEDS: Folic Acid 1 MG TAB PO SCH (09:36)
[2021-01-11] MEDS: Gabapentin 300 MG CAP PO SCH ×3 (09:36→21:53)
[2021-01-11] MEDS: Apixaban 5 MG TAB PO SCH ×2 (09:36→21:53)
[2021-01-11] MEDS: Cyanocobalamin (Vitamin B-12) 1,000 MCG TAB PO SCH (09:36)
[2021-01-11] MEDS: Furosemide 20 MG TAB PO SCH (09:36)
[2021-01-11] MEDS: Mometasone/Formoterol 200/5 60 PUFF INH SCH ×2 (09:38→22:15)
[2021-01-11] MEDS: Ferrous Sulfate 325 MG TAB PO SCH ×2 (09:49→17:45)
[2021-01-11] MEDS: Lisinopril 5 MG TAB PO SCH (09:55)
[2021-01-11] MEDS: traMADol HCl 50 MG TAB PO PRN (15:19)
[2021-01-11] MEDS: Atorvastatin Calcium 10 MG TAB PO SCH (21:54)
[2021-01-11] MEDS: Famotidine 20 MG TAB PO SCH (21:54)
[2021-01-12] MEDS: traMADol HCl 50 MG TAB PO PRN ×2 (00:55→08:57)
[2021-01-12] MEDS: Acetaminophen 325 MG TAB PO PRN (05:47)
[2021-01-12] MEDS: Lisinopril 5 MG TAB PO SCH (08:51)
[2021-01-12] MEDS: Furosemide 20 MG TAB PO SCH (08:52)
[2021-01-12] MEDS: Gabapentin 300 MG CAP PO SCH ×3 (08:52→20:52)
[2021-01-12] MEDS: Apixaban 5 MG TAB PO SCH ×2 (08:53→20:51)
[2021-01-12] MEDS: Folic Acid 1 MG TAB PO SCH (08:54)
[2021-01-12] MEDS: Cyanocobalamin (Vitamin B-12) 1,000 MCG TAB PO SCH (08:54)
[2021-01-12] MEDS: Mometasone/Formoterol 200/5 60 PUFF INH SCH ×2 (09:00→20:52)
[2021-01-12] MEDS: Ferrous Sulfate 325 MG TAB PO SCH ×2 (09:02→18:22)
[2021-01-12] MEDS: Famotidine 20 MG TAB PO SCH (20:52)
[2021-01-12] MEDS: Atorvastatin Calcium 10 MG TAB PO SCH (20:52)
[2021-01-13] MEDS: Gabapentin 300 MG CAP PO SCH ×3 (09:10→20:45)
[2021-01-13] MEDS: Furosemide 20 MG TAB PO SCH (09:11)
[2021-01-13] MEDS: Lisinopril 5 MG TAB PO SCH (09:11)
[2021-01-13] MEDS: Apixaban 5 MG TAB PO SCH ×2 (09:11→20:45)
[2021-01-13] MEDS: Folic Acid 1 MG TAB PO SCH (09:11)
[2021-01-13] MEDS: Cyanocobalamin (Vitamin B-12) 1,000 MCG TAB PO SCH (09:12)
[2021-01-13] MEDS: Mometasone/Formoterol 200/5 60 PUFF INH SCH ×2 (09:12→21:40)
[2021-01-13] MEDS: traMADol HCl 50 MG TAB PO PRN ×2 (09:17→15:39)
[2021-01-13] MEDS: Ferrous Sulfate 325 MG TAB PO SCH ×2 (09:59→15:42)
[2021-01-13] MEDS: Famotidine 20 MG TAB PO SCH (20:45)
[2021-01-13] MEDS: Atorvastatin Calcium 10 MG TAB PO SCH (20:45)
[2021-01-14] MEDS: traMADol HCl 50 MG TAB PO PRN ×2 (04:03→14:13)
[2021-01-14 05:15] LABS: Hemoglobin 8.3 g/dL (14.0-18.0); Platelet Count 53 thou/uL (130-400)
[2021-01-14] MEDS: Lisinopril 5 MG TAB PO SCH (09:06)
[2021-01-14] MEDS: Folic Acid 1 MG TAB PO SCH (09:07)
[2021-01-14] MEDS: Cyanocobalamin (Vitamin B-12) 1,000 MCG TAB PO SCH (09:07)
[2021-01-14] MEDS: Apixaban 5 MG TAB PO SCH ×2 (09:07→21:05)
[2021-01-14] MEDS: Gabapentin 300 MG CAP PO SCH ×3 (09:08→21:05)
[2021-01-14] MEDS: Furosemide 20 MG TAB PO SCH (09:09)
[2021-01-14] MEDS: Ferrous Sulfate 325 MG TAB PO SCH ×2 (09:11→18:34)
[2021-01-14] MEDS: Mometasone/Formoterol 200/5 60 PUFF INH SCH ×2 (09:12→21:11)
[2021-01-14] MEDS: Acetaminophen 325 MG TAB PO PRN (12:06)
[2021-01-14] MEDS: Atorvastatin Calcium 10 MG TAB PO SCH (21:05)
[2021-01-14] MEDS: Famotidine 20 MG TAB PO SCH (21:05)
[2021-01-15] MEDS: Acetaminophen 325 MG TAB PO PRN (08:48)
[2021-01-15] MEDS: Gabapentin 300 MG CAP PO SCH ×3 (08:49→21:05)
[2021-01-15] MEDS: Lisinopril 5 MG TAB PO SCH (08:50)
[2021-01-15] MEDS: Folic Acid 1 MG TAB PO SCH (08:50)
[2021-01-15] MEDS: Apixaban 5 MG TAB PO SCH ×2 (08:51→21:04)
[2021-01-15] MEDS: Furosemide 20 MG TAB PO SCH (08:51)
[2021-01-15] MEDS: Cyanocobalamin (Vitamin B-12) 1,000 MCG TAB PO SCH (08:51)
[2021-01-15] MEDS: Ferrous Sulfate 325 MG TAB PO SCH ×2 (08:52→17:33)
[2021-01-15] MEDS: Mometasone/Formoterol 200/5 60 PUFF INH SCH ×2 (08:55→21:11)
[2021-01-15 11:57] LABS: #Eosinphils 0.1 thou/uL (0.0-0.7); #Monocytes 0.5 thou/uL (0.11-0.59); #Neutrophils 5.5 thou/uL (1.40-6.50); %Basophils 0.6 % (0.0-1.0); %Eosinophils 1.3 % (0.0-10.0); %Lymphocytes 13.6 % (21.0-51.0); %Monocytes 7.3 % (0.0-10.0); %Neutrophils 77.2 % (42.0-75.0); Hemoglobin 8.2 g/dL (14.0-18.0); Mean Corpuscular HGB CONC 30.7 g/dL (32.0-36.0); Mean Corpuscular Hemoglobin 22.5 pg (27.0-31.0); Mean Corpuscular Volume 73.4 fL (78.0-98.0); Mean Platelet Volume 9.9 fL (7.4-10.4); Platelet Count 58 thou/uL (130-400); RBC Distribution Width 16.6 % (11.5-14.5); Red Blood Cell (RBC) Count 3.64 mill/uL (4.70-6.10); White Blood Cell (WBC) Count 7.1 thou/uL (4.8-10.8)
[2021-01-15 11:59] LABS: MDiff Complete? YES
[2021-01-15 12:12] LABS: ALT (SGPT) 13 U/L (8-55); AST (SGOT) 15 U/L (5-34); Albumin 2.6 g/dL (3.4-4.8); Alkaline Phosphatase 113 U/L (40-110); Anion Gap 13 mmol/L (10-20); BUN (Urea Nitrogen) 29 mg/dL (8.4-25.7); Bilirubin, Total 0.6 mg/dL (0.2-1.2); Calc. Creatinine Clearance 70 mL/min (70-130); Calcium 8.3 mg/dL (7.8-10.44); Carbon Dioxide 23 mmol/L (23-31); Chloride 105 mmol/L (98-107); Glucose 113 mg/dL (83-110); Protein, Total 6.6 g/dL (5.8-8.1); Sodium 137 mmol/L (136-145)
[2021-01-15 15:17] LABS: Bilirubin Small (Negative); Blood, Urine Negative (Negative); Clarity Clear (Clear); Glucose, Urine (Dipstick) Negative (Negative); Ketone, Urine Negative (Negative); Leukocyte Negative (Negative); Nitrite Negative (Negative); Protein, Urine (Dipstick) Trace mg/dL (Neg-Trace); Specific Gravity, Urine 1.015 (1.005-1.030); pH, Urine 5.5 (5.0-9.0)
[2021-01-15] MEDS: traMADol HCl 50 MG TAB PO PRN (17:30)
[2021-01-15] MEDS: Atorvastatin Calcium 10 MG TAB PO SCH (21:04)
[2021-01-15] MEDS: Famotidine 20 MG TAB PO SCH (21:04)
[2021-01-16] MEDS: Ferrous Sulfate 325 MG TAB PO SCH ×2 (09:21→17:34)
[2021-01-16] MEDS: Mometasone/Formoterol 200/5 60 PUFF INH SCH ×2 (09:22→20:44)
[2021-01-16] MEDS: Apixaban 5 MG TAB PO SCH ×2 (09:23→22:30)
[2021-01-16] MEDS: Cyanocobalamin (Vitamin B-12) 1,000 MCG TAB PO SCH (09:24)
[2021-01-16] MEDS: Gabapentin 300 MG CAP PO SCH ×2 (09:24→14:31)
[2021-01-16] MEDS: Folic Acid 1 MG TAB PO SCH (09:24)
[2021-01-16] MEDS: Furosemide 20 MG TAB PO SCH (09:24)
[2021-01-16] MEDS: Lisinopril 5 MG TAB PO SCH (09:25)
[2021-01-16] MEDS: traMADol HCl 50 MG TAB PO PRN (17:53)
[2021-01-16 18:56] LABS: #Eosinphils 0.1 thou/uL (0.0-0.7); #Lymphocytes 0.9 thou/uL (1.20-3.40); #Monocytes 0.4 thou/uL (0.11-0.59); #Neutrophils 5.8 thou/uL (1.40-6.50); %Basophils 0.3 % (0.0-1.0); %Eosinophils 1.5 % (0.0-10.0); %Monocytes 5.2 % (0.0-10.0); Hemoglobin 8.7 g/dL (14.0-18.0); Mean Corpuscular HGB CONC 29.5 g/dL (32.0-36.0); Mean Corpuscular Volume 74.6 fL (78.0-98.0); Mean Platelet Volume 9.9 fL (7.4-10.4); Platelet Count 65 thou/uL (130-400); RBC Distribution Width 16.9 % (11.5-14.5); Red Blood Cell (RBC) Count 3.94 mill/uL (4.70-6.10); White Blood Cell (WBC) Count 7.2 thou/uL (4.8-10.8)
[2021-01-16 18:57] LABS: MDiff Complete? YES
[2021-01-16 19:06] LABS: Lactic Acid 1.6 mmol/L (0.5-2.2)
[2021-01-16 19:08] LABS: Base Excess-Venous -0.8 mmol/L (-2.0 to 3.0); CO2 Tension (PvCO2) 39.3 mmHg (42.0-51.0); Chloride 103 mmol/L (98-107); Hemoglobin - Calc 10.3 g/dL (14.0-18.0); Potassium 3.7 mmol/L (3.5-5.1); Sodium 138 mmol/L (138-145); T. Carbon Dioxide 25.2 mmol/L (22.0-28.0); vO2 Saturation-calc 79.2 % (60.0-85.0)
[2021-01-16 19:10] LABS: ALT (SGPT) 12 U/L (8-55); AST (SGOT) 12 U/L (5-34); Albumin 2.7 g/dL (3.4-4.8); Alkaline Phosphatase 115 U/L (40-110); Anion Gap 13 mmol/L (10-20); BUN (Urea Nitrogen) 26 mg/dL (8.4-25.7); Bilirubin, Total 0.6 mg/dL (0.2-1.2); Calc. Creatinine Clearance 66 mL/min (70-130); Calcium 8.4 mg/dL (7.8-10.44); Carbon Dioxide 24 mmol/L (23-31); Chloride 104 mmol/L (98-107); Globulin 4.3 g/dL (2.4-3.5); Glucose 128 mg/dL (83-110); Potassium 3.8 mmol/L (3.5-5.1); Sodium 137 mmol/L (136-145)
[2021-01-16] MEDS ORDERED: Vancomycin HCl 1 GM in Sodium Chloride 0.9% 250 ML 250 ML IVPB SCH (21:00)
[2021-01-16] MEDS: Atorvastatin Calcium 10 MG TAB PO SCH (22:30)
[2021-01-16] MEDS: Famotidine 20 MG TAB PO SCH (22:31)
[2021-01-17] MEDS: Acetaminophen 325 MG TAB PO PRN (03:49)
[2021-01-17 05:45] VITALS: TEMP 97.8
[2021-01-17 06:16] LABS: Hemoglobin 8.5 g/dL (14.0-18.0); Platelet Count 58 thou/uL (130-400)
[2021-01-17] MEDS: Ferrous Sulfate 325 MG TAB PO SCH (08:49)
[2021-01-17] MEDS ORDERED: Gabapentin 100 MG CAP PO SCH (09:00)
[2021-01-17] MEDS: Mometasone/Formoterol 200/5 60 PUFF INH SCH (09:11)
[2021-01-17] MEDS: Folic Acid 1 MG TAB PO SCH (09:14)
[2021-01-17] MEDS: Apixaban 5 MG TAB PO SCH (09:15)
[2021-01-17] MEDS: Cyanocobalamin (Vitamin B-12) 1,000 MCG TAB PO SCH (09:15)
[2021-01-17] MEDS: Furosemide 20 MG TAB PO SCH (09:16)
[2021-01-17] MEDS: Lisinopril 5 MG TAB PO SCH (09:16)
[2021-01-17 09:18] VITALS: BP 116/66
[2021-01-17] MEDS: traMADol HCl 50 MG TAB PO PRN (09:21)
[2021-01-17 13:53] LABS: SARS-CoV-2 PCR by NAA Not Detected (NotDetected)
== END 2021-01-17 17:07 | disposition short-term general hospital (02) | DRG 535 ==
LOC: BURMED 16:15
PROVIDERS: ADMIT Family Medicine; ATTEND Family Medicine
DX: S72.001A Fracture of unspecified part of neck of right femur, initial encounter for closed fracture (principal); I50.43 Acute on chronic combined systolic (congestive) and diastolic (congestive) heart failure; I13.0 Hypertensive heart and chronic kidney disease with heart failure and stage 1 through stage 4 chronic kidney disease, or unspecified chronic kidney disease; J44.9 Chronic obstructive pulmonary disease, unspecified; F32.A Depression, unspecified; N18.30 Chronic kidney disease, stage 3 unspecified; F41.9 Anxiety disorder, unspecified; E78.5 Hyperlipidemia, unspecified; I25.10 Atherosclerotic heart disease of native coronary artery without angina pectoris; I73.9 Peripheral vascular disease, unspecified; Z20.822 Contact with and (suspected) exposure to COVID-19; W19.XXXA Unspecified fall, initial encounter; F17.210 Nicotine dependence, cigarettes, uncomplicated; D64.9 Anemia, unspecified; Z89.512 Acquired absence of left leg below knee; Z86.711 Personal history of pulmonary embolism; Z79.899 Other long term (current) drug therapy; Y92.9 Unspecified place or not applicable
CPT/HCPCS: 36415; 36416; 70450; 71045; 80048; 80053; 81003; 82274; 82330; 82565; 82803; 83605; 83880; 85014; 85018; 85025; 85049; 85652; 86140; 90471; 90662; 94664; G0008; J3370; J7050; J7620; U0003; U0005

== ENCOUNTER 2021-02-07 08:36 | Emergency (ER) | payer MEDICARE, MEDICAID | END 2021-02-07 09:45 | disposition home or self-care (01) | LOC: BURERS 08:36 | DX: Z48.01 Encounter for change or removal of surgical wound dressing (principal); I25.10 Atherosclerotic heart disease of native coronary artery without angina pectoris; I11.0 Hypertensive heart disease with heart failure; I50.9 Heart failure, unspecified; E78.2 Mixed hyperlipidemia; F17.210 Nicotine dependence, cigarettes, uncomplicated; Z79.899 Other long term (current) drug therapy; Z79.01 Long term (current) use of anticoagulants | CPT/HCPCS: 99283 ==